=== PATIENT | female | born 1950 | race African-American/Black ===

== ENCOUNTER → 2019-10-14 | Emergency (ER) | payer MEDICARE, MEDICAID ==
[~2019-10-14] VITALS: Ht 170.2 cm; Wt 99.3 kg
[~2019-10-14] MED LIST: ANAS1TAB52; DIVA125T12; DOCUSATE SOD 100 MG CAP PO ONE; GEMF600T7; HYDROcodone-ACET 10/325MG TAB PO ONE; HYDRX10T; INDO25CA17; LORAPOW30; QUET200T30; SIMVISTATIN; SMZ/TMP; SYNTHROID; ZOLP10TA; [UNRECOGNIZED DRUG - OTHER]
[2019-10-14 10:34] LABS: Basophils # (auto) 0.1 10 ^3/uL (0-0.2); Basophils % (auto) 0.6 % (0.0-2.0); Eosinophils # (auto) 0.1 10 ^3/uL (0-0.8); Eosinophils % (auto) 0.8 % (0.0-7.0); Hematocrit 36.2 % (36.0-46.0); Hemoglobin 11.8 g/dL (12.2-16.2); Lymphocytes # (auto) 1.2 10 ^3/uL (0.4-5.4); Mean Corpuscular Hemoglobin 29.3 pg (28.0-32.0); Mean Corpuscular Hgb Conc. 32.7 g/dL (32.0-36.0); Mean Corpuscular Volume 89.7 fL (80.0-100.0); Monocytes # (auto) 0.5 10 ^3/uL (0-1.3); Monocytes % (auto) 6.2 % (0.0-12.0); Neutrophils # (auto) 6.2 10 ^3/uL (1.6-8.6); Neutrophils % (auto) 77.4 % (37.0-80.0); Nucleated Red Blood Cells % 0.1 %; Platelet Count (auto) 174 10^3/uL (140-450); Red Blood Cells 4.04 10^6/uL (4.0-5.20); Red Cell Distribution Width 16.2 % (11.8-14.3); White Blood Cell 8.1 10^3/uL (4.4-10.8)
[2019-10-14 10:49] LABS: INR 1.04 (0.9-1.15); Partial Thromboplastin Time 22.1 sec (23.64-32.05)
[2019-10-14 10:53] LABS: Albumin 3.7 g/dL (3.4-5.0); Anion Gap 5 (5-15); Blood Urea Nitrogen 44 mg/dL (7-18); Calcium 8.3 mg/dL (8.5-10.1); Carbon Dioxide 25 mmol/L (21-32); Chloride 107 mmol/L (98-107); Glucose 99 mg/dL (74-106); Lipase 250 U/L (73-393); Potassium 4.9 mmol/L (3.5-5.1); Sodium 137 mmol/L (136-145)
[2019-10-14 10:59] LABS: Alanine Aminotransferase 24 U/L (13-56); Alkaline Phosphatase 91 U/L (45-117); Aspartate Aminotransferase 40 U/L (15-37); BUN/Creatinine Ratio 21.9; Bilirubin, Total 0.2 mg/dL (0.2-1.0); GFR African American 31 mL/min; GFR Non-African American 26 mL/min; Total Protein 8.7 g/dL (6.4-8.2)
[2019-10-14 12:37] VITALS: BP 112/68
[2019-10-14 13:53] LABS: Urine Bacteria NONE SEEN /hpf (None Seen); Urine Blood Negative /uL (Negative); Urine Specific Gravity 1.018 (1.001-1.035); Urine WBC 12 /hpf (0 - 5)
== END | disposition home or self-care (01) ==
LOC: ER 09:44
DX: K59.00 Constipation, unspecified (principal); N39.0 Urinary tract infection, site not specified; N28.9 Disorder of kidney and ureter, unspecified
CPT/HCPCS: 36415; 71045; 74018; 80053; 81001; 83690; 84484; 85025; 85610; 85730

== ENCOUNTER 2019-11-13 12:58 | Inpatient (IN) | payer MEDICARE, MEDICAID ==
[~2019-11-13] VITALS: Ht 170.2 cm; Wt 106.5 kg
[~2019-11-13 12:58] MED LIST changes: -DOCUSATE SOD 100 MG CAP PO ONE; -HYDROcodone-ACET 10/325MG TAB PO ONE
[2019-11-13 13:28] LABS: Basophils # (auto) 0 10 ^3/uL (0-0.2); Basophils % (auto) 0.9 % (0.0-2.0); Eosinophils # (auto) 0.1 10 ^3/uL (0-0.8); Eosinophils % (auto) 2.5 % (0.0-7.0); Hematocrit 31.5 % (36.0-46.0); Hemoglobin 10.3 g/dL (12.2-16.2); Lymphocytes # (auto) 1.4 10 ^3/uL (0.4-5.4); Mean Corpuscular Hemoglobin 29.8 pg (28.0-32.0); Mean Corpuscular Hgb Conc. 32.7 g/dL (32.0-36.0); Mean Corpuscular Volume 91.3 fL (80.0-100.0); Monocytes # (auto) 0.3 10 ^3/uL (0-1.3); Monocytes % (auto) 7.2 % (0.0-12.0); Neutrophils # (auto) 2.5 10 ^3/uL (1.6-8.6); Neutrophils % (auto) 57.4 % (37.0-80.0); Nucleated Red Blood Cells % 0.2 %; Platelet Count (auto) 218 10^3/uL (140-450); Red Blood Cells 3.46 10^6/uL (4.0-5.20); Red Cell Distribution Width 15.4 % (11.8-14.3); White Blood Cell 4.4 10^3/uL (4.4-10.8)
[2019-11-13 13:50] LABS: Albumin 3.7 g/dL (3.4-5.0); Calcium 8.9 mg/dL (8.5-10.1)
[2019-11-13 13:54] LABS: Bilirubin, Total 0.3 mg/dL (0.2-1.0); Total Protein 8.9 g/dL (6.4-8.2); Uric Acid 10.1 mg/dL (2.6-6.0)
[2019-11-13 14:00] LABS: Potassium 5.7 mmol/L (3.5-5.1)
[2019-11-13] MEDS ORDERED: CALCIUM GLUC 4.65meq/50ml D5AE 50 ML IV ONE (16:00)
[2019-11-13] MEDS ORDERED: SODIUM BICARBONATE 8.4 % INJ 50ML VIAL IV ONE (16:00)
[2019-11-13] MEDS ORDERED: NITROGLYCERIN 0.4 MG SL TAB SL PRN (16:15)
[2019-11-13] MEDS ORDERED: LORazepam 0.5 MG TAB PO PRN (16:15)
[2019-11-13] MEDS ORDERED: ONDANSETRON HCL 4 MG/2 ML VIAL IV PRN (16:15)
[2019-11-13] MEDS ORDERED: ALBUTEROL SULF 2.5 MG/0.5ML(0.5%) NEB SOLN NEB ONE (16:15)
[2019-11-13] MEDS ORDERED: FUROSEMIDE 20 MG/2 ML VIAL IV ONE (16:15)
[2019-11-13] MEDS ORDERED: SODIUM ZIRCONIUM CYCL 10 GM PAK PO ONE (16:15)
[2019-11-13] MEDS ORDERED: ALUM & MAG HYDROX-SIMETH LIQ(MAALOX) 30 ML PO PRN (16:15)
[2019-11-13] MEDS ORDERED: MORPHINE SULF INJ 2 MG/ML SYRINGE 1ML IV PRN (16:15)
[2019-11-13] MEDS ORDERED: DOCUSATE SOD 100 MG CAP PO PRN (16:15)
[2019-11-13] MEDS ORDERED: HYDROmorphone HCL 2 MG/ML VL IV PRN (16:15)
[2019-11-13] MEDS ORDERED: hydrOXYzine HCL 10 MG TAB PO PRN (16:30)
[2019-11-13] MEDS ORDERED: predniSONE 20 MG TAB PO ONE (16:30)
[2019-11-13] MEDS ORDERED: PANTOPRAZOLE 40 MG/10 ML VIAL INJ IV ONE (16:30)
[2019-11-13] MEDS: HYDROcodone-ACET 10/325MG TAB PO PRN (16:35)
[2019-11-13] MEDS: LACTATED RINGER'S 1,000 ML IV SCH (16:51)
[2019-11-13 17:55] LABS: Urine Bacteria FEW /hpf (None Seen); Urine Blood Negative /uL (Negative); Urine Hyaline Cast FEW /lpf (0 - 2); Urine WBC 16 /hpf (0 - 5)
[2019-11-13] MEDS: FUROSEMIDE 20 MG/2 ML VIAL IV SCH (18:00)
[2019-11-13 19:40] VITALS: BP 123/69
[2019-11-13] MEDS ORDERED: CITA10TA59 PO (21:39)
[2019-11-13] MEDS ORDERED: LEVO125T66 PO (21:39)
[2019-11-13] MEDS: ATORVASTATIN 20 MG TAB PO SCH (22:00)
[2019-11-13 22:07] VITALS: BP 132/82
[2019-11-13] MEDS: QUEtiapine FUMARATE 100 MG TAB PO SCH (22:20)
[2019-11-14] MEDS: LACTATED RINGER'S 1,000 ML IV SCH ×2 (00:36→05:20)
[2019-11-14 04:54] VITALS: BP 127/67
[2019-11-14] MEDS: FUROSEMIDE 20 MG/2 ML VIAL IV SCH (06:27)
[2019-11-14] MEDS: LEVOTHYROXINE SODIUM 100 MCG TAB PO SCH (06:29)
[2019-11-14 06:42] LABS: Basophils # (auto) 0 10 ^3/uL (0-0.2); Basophils % (auto) 0.3 % (0.0-2.0); Eosinophils # (auto) 0 10 ^3/uL (0-0.8); Hematocrit 29.4 % (36.0-46.0); Hemoglobin 9.9 g/dL (12.2-16.2); Lymphocytes # (auto) 0.6 10 ^3/uL (0.4-5.4); Lymphocytes % (auto) 15.1 % (10.0-50.0); Mean Corpuscular Hemoglobin 30.5 pg (28.0-32.0); Mean Corpuscular Hgb Conc. 33.6 g/dL (32.0-36.0); Mean Corpuscular Volume 90.9 fL (80.0-100.0); Monocytes # (auto) 0.4 10 ^3/uL (0-1.3); Neutrophils % (auto) 73.6 % (37.0-80.0); Nucleated Red Blood Cells % 0.3 %; Platelet Count (auto) 209 10^3/uL (140-450); Red Blood Cells 3.23 10^6/uL (4.0-5.20); Red Cell Distribution Width 15.2 % (11.8-14.3)
[2019-11-14] MEDS: HYDROcodone-ACET 10/325MG TAB PO PRN ×2 (06:54→16:49)
[2019-11-14 07:02] LABS: Albumin 3.2 g/dL (3.4-5.0); Calcium 8.9 mg/dL (8.5-10.1); Magnesium 2.3 mg/dL (1.6-2.6); Potassium 5.5 mmol/L (3.5-5.1)
[2019-11-14 07:08] LABS: BUN/Creatinine Ratio 32.7; Bilirubin, Total 0.3 mg/dL (0.2-1.0); Phosphorus 4.3 mg/dL (2.5-4.90)
[2019-11-14 08:51] VITALS: BP 133/95
[2019-11-14] MEDS: predniSONE 20 MG TAB PO SCH (10:07)
[2019-11-14] MEDS: CITALOPRAM HYDROBR 20 MG TAB PO SCH (10:08)
[2019-11-14] MEDS: PANTOPRAZOLE 40 MG/10 ML VIAL INJ IV SCH (10:08)
[2019-11-14] MEDS ORDERED: ALBUTEROL SULF 2.5 MG/0.5ML(0.5%) NEB SOLN NEB ONE ×2 (10:30→20:30)
[2019-11-14] MEDS ORDERED: InsuLIN REG 1unit/0.01ml Soln (100units/ml) IV ONE ×2 (10:30→20:00)
[2019-11-14] MEDS ORDERED: SODIUM BICARBONATE 8.4% INJ 50ML SYRINGE IV ONE ×2 (10:30→20:30)
[2019-11-14] MEDS ORDERED: DEXTROSE (50%) 50ML SYRG IV ONE ×2 (10:30→20:00)
[2019-11-14] MEDS ORDERED: FUROSEMIDE 100 MG/10ML VIAL IV ONE (10:30)
[2019-11-14] MEDS ORDERED: cefTRIAXone 1GM/50ML D5W 50 ML IV ONE (11:00)
[2019-11-14] MEDS ORDERED: SODIUM CHLORIDE 0.9% 1,000 ML IV SCH (11:00)
[2019-11-14 12:47] VITALS: BP 128/55
[2019-11-14] MEDS ORDERED: SODIUM ZIRCONIUM CYCL 10 GM PAK PO SCH (14:00)
[2019-11-14 16:58] VITALS: BP 127/68
[2019-11-14 19:18] LABS: BUN/Creatinine Ratio 33.1; Calcium 9.4 mg/dL (8.5-10.1)
[2019-11-14 19:27] LABS: Potassium 5.6 mmol/L (3.5-5.1)
[2019-11-14] MEDS ORDERED: LACTULOSE 20Gm/30ML SOLN PO ONE (20:15)
[2019-11-14] MEDS ORDERED: FUROSEMIDE 20 MG/2 ML VIAL IV ONE (20:15)
[2019-11-14] MEDS ORDERED: SODIUM ZIRCONIUM CYCL 10 GM PAK PO ONE (20:15)
[2019-11-14] MEDS ORDERED: CALCIUM GLUC 4.65meq/50ml D5AE 50 ML IV ONE (20:30)
[2019-11-14] MEDS: ATORVASTATIN 20 MG TAB PO SCH (20:57)
[2019-11-14] MEDS: QUEtiapine FUMARATE 100 MG TAB PO SCH (20:57)
[2019-11-14] MEDS: SODIUM ZIRCONIUM CYCL 10 GM PAK PO SCH (20:58)
[2019-11-14 21:53] VITALS: BP 124/63
[2019-11-15] MEDS: SODIUM ZIRCONIUM CYCL 10 GM PAK PO SCH ×3 (04:39→20:28)
[2019-11-15] MEDS: LEVOTHYROXINE SODIUM 100 MCG TAB PO SCH (04:39)
[2019-11-15 05:00] VITALS: BP 110/64
[2019-11-15 06:04] LABS: Basophils # (auto) 0 10 ^3/uL (0-0.2); Basophils % (auto) 0.2 % (0.0-2.0); Eosinophils # (auto) 0 10 ^3/uL (0-0.8); Eosinophils % (auto) 0.2 % (0.0-7.0); Hematocrit 29.4 % (36.0-46.0); Hemoglobin 9.7 g/dL (12.2-16.2); Lymphocytes # (auto) 1.5 10 ^3/uL (0.4-5.4); Lymphocytes % (auto) 25.2 % (10.0-50.0); Mean Corpuscular Hemoglobin 30.3 pg (28.0-32.0); Mean Corpuscular Hgb Conc. 33.1 g/dL (32.0-36.0); Mean Corpuscular Volume 91.3 fL (80.0-100.0); Monocytes # (auto) 0.8 10 ^3/uL (0-1.3); Monocytes % (auto) 13.8 % (0.0-12.0); Neutrophils # (auto) 3.5 10 ^3/uL (1.6-8.6); Neutrophils % (auto) 60.6 % (37.0-80.0); Nucleated Red Blood Cells % 0.3 %; Platelet Count (auto) 216 10^3/uL (140-450); Red Blood Cells 3.22 10^6/uL (4.0-5.20); White Blood Cell 5.8 10^3/uL (4.4-10.8)
[2019-11-15 06:23] LABS: Albumin 3.4 g/dL (3.4-5.0); Calcium 8.7 mg/dL (8.5-10.1); Magnesium 2.1 mg/dL (1.6-2.6); Potassium 4.2 mmol/L (3.5-5.1)
[2019-11-15 06:26] LABS: BUN/Creatinine Ratio 35.6; Bilirubin, Total 0.2 mg/dL (0.2-1.0); Phosphorus 5.5 mg/dL (2.5-4.90); Total Protein 8.4 g/dL (6.4-8.2)
[2019-11-15] MEDS: PANTOPRAZOLE 40 MG/10 ML VIAL INJ IV SCH (08:53)
[2019-11-15] MEDS: cefTRIAXone 1GM/50ML D5W 50 ML IV SCH (08:53)
[2019-11-15] MEDS: CITALOPRAM HYDROBR 20 MG TAB PO SCH (08:54)
[2019-11-15] MEDS: predniSONE 20 MG TAB PO SCH (08:54)
[2019-11-15 08:55] LABS: Protein, Urine 9.2 mg/dL (0.0-11.9)
[2019-11-15 09:00] VITALS: BP 128/86
[2019-11-15] MEDS: HYDROcodone-ACET 10/325MG TAB PO PRN (09:01)
[2019-11-15 13:00] VITALS: BP 126/74
[2019-11-15 16:56] VITALS: BP 138/104
[2019-11-15] MEDS: ATORVASTATIN 20 MG TAB PO SCH (20:28)
[2019-11-15] MEDS: QUEtiapine FUMARATE 100 MG TAB PO SCH (20:28)
[2019-11-15 22:00] VITALS: BP 114/79
[2019-11-16] MEDS: SODIUM ZIRCONIUM CYCL 10 GM PAK PO SCH ×2 (04:57→14:00)
[2019-11-16] MEDS: LEVOTHYROXINE SODIUM 100 MCG TAB PO SCH (04:57)
[2019-11-16 05:00] VITALS: BP 104/60
[2019-11-16 06:55] LABS: Potassium 3.8 mmol/L (3.5-5.1)
[2019-11-16 07:02] LABS: Albumin 3.3 g/dL (3.4-5.0); BUN/Creatinine Ratio 37.1; Bilirubin, Total 0.3 mg/dL (0.2-1.0); Calcium 8.6 mg/dL (8.5-10.1); Total Protein 8.1 g/dL (6.4-8.2)
[2019-11-16 09:00] VITALS: BP 123/66
[2019-11-16] MEDS: CITALOPRAM HYDROBR 20 MG TAB PO SCH (10:02)
[2019-11-16] MEDS: cefTRIAXone 1GM/50ML D5W 50 ML IV SCH (10:02)
[2019-11-16] MEDS: predniSONE 20 MG TAB PO SCH (10:02)
[2019-11-16] MEDS: PANTOPRAZOLE 40 MG/10 ML VIAL INJ IV SCH (10:02)
[2019-11-16 13:00] VITALS: BP 125/76
== END 2019-11-16 14:30 | disposition home or self-care (01) | DRG 553 ==
LOC: ER 12:58 → TELE 12:59 → TELE-WESTW 19:32
PROVIDERS: ADMIT Hospitalist; ATTEND Internal Medicine
DX: M10.9 Gout, unspecified (principal); N17.0 Acute kidney failure with tubular necrosis; E44.0 Moderate protein-calorie malnutrition; N39.0 Urinary tract infection, site not specified; E86.0 Dehydration; E87.5 Hyperkalemia; E03.9 Hypothyroidism, unspecified; E66.01 Morbid (severe) obesity due to excess calories; E78.5 Hyperlipidemia, unspecified; F32.9 Major depressive disorder, single episode, unspecified; I12.9 Hypertensive chronic kidney disease with stage 1 through stage 4 chronic kidney disease, or unspecified chronic kidney disease; F41.9 Anxiety disorder, unspecified; N18.3 Chronic kidney disease, stage 3 (moderate); Z79.1 Long term (current) use of non-steroidal anti-inflammatories (NSAID); Z80.9 Family history of malignant neoplasm, unspecified; Z83.3 Family history of diabetes mellitus; Z85.3 Personal history of malignant neoplasm of breast; Z91.11 Patient's noncompliance with dietary regimen; Z98.51 Tubal ligation status; Z88.5 Allergy status to narcotic agent; M17.12 Unilateral primary osteoarthritis, left knee; Z68.34 Body mass index [BMI] 34.0-34.9, adult; D63.1 Anemia in chronic kidney disease; D50.9 Iron deficiency anemia, unspecified
CPT/HCPCS: 36415; 71045; 73630; 76775; 80048; 80053; 80061; 81001; 82306; 82570; 82962; 83036; 83735; 83880; 84100; 84156; 84300; 84439; 84443; 84550; 85025; 87081; 87086; 93005; 93306; 94640; 94644; 96365; 96375; C9113; G0378; J0610; J0696; J1815

== ENCOUNTER 2019-11-17 12:09 | Emergency (ER) | payer MEDICARE, MEDICAID ==
[~2019-11-17] VITALS: Ht 170.2 cm; Wt 102.1 kg
[~2019-11-17 12:09] MED LIST changes: -ANAS1TAB52; +CITA10TA59 PO; -GEMF600T7; -HYDRX10T; -INDO25CA17; +LEVO125T66 PO; -LORAPOW30; -SMZ/TMP; -SYNTHROID; -ZOLP10TA; -[UNRECOGNIZED DRUG - OTHER]
[2019-11-17] MEDS: LORazepam 0.5 MG TAB PO ONE ×2 (12:43→12:59)
[2019-11-17 12:49] VITALS: BP 125/92
[2019-11-17] MEDS ORDERED: LORazepam 2MG/ML-1ML VIAL IV ONE (13:00)
[2019-11-17 13:06] LABS: Basophils # (auto) 0 10 ^3/uL (0-0.2); Basophils % (auto) 0.4 % (0.0-2.0); Eosinophils # (auto) 0.1 10 ^3/uL (0-0.8); Eosinophils % (auto) 0.8 % (0.0-7.0); Hematocrit 33.5 % (36.0-46.0); Hemoglobin 10.7 g/dL (12.2-16.2); Lymphocytes # (auto) 2.1 10 ^3/uL (0.4-5.4); Lymphocytes % (auto) 30.2 % (10.0-50.0); Mean Corpuscular Hemoglobin 29.3 pg (28.0-32.0); Mean Corpuscular Hgb Conc. 31.8 g/dL (32.0-36.0); Monocytes # (auto) 0.9 10 ^3/uL (0-1.3); Monocytes % (auto) 12.9 % (0.0-12.0); Neutrophils # (auto) 3.8 10 ^3/uL (1.6-8.6); Neutrophils % (auto) 55.7 % (37.0-80.0); Nucleated Red Blood Cells % 0.5 %; Platelet Count (auto) 229 10^3/uL (140-450); Red Blood Cells 3.64 10^6/uL (4.0-5.20); Red Cell Distribution Width 15.4 % (11.8-14.3); White Blood Cell 6.8 10^3/uL (4.4-10.8)
[2019-11-17 13:29] LABS: Albumin 3.4 g/dL (3.4-5.0); Anion Gap 7 (5-15); Aspartate Aminotransferase 13 U/L (15-37); BUN/Creatinine Ratio 33.1; Blood Urea Nitrogen 48 mg/dL (7-18); Calcium 8.5 mg/dL (8.5-10.1); Carbon Dioxide 30 mmol/L (21-32); Chloride 106 mmol/L (98-107); GFR African American 46 mL/min; GFR Non-African American 38 mL/min; Glucose 78 mg/dL (74-106); Potassium 3.3 mmol/L (3.5-5.1); Sodium 143 mmol/L (136-145)
[2019-11-17 13:34] LABS: Alanine Aminotransferase 15 U/L (13-56); Alkaline Phosphatase 71 U/L (45-117); Bilirubin, Total 0.2 mg/dL (0.2-1.0); Total Protein 8.2 g/dL (6.4-8.2)
[2019-11-17] MEDS ORDERED: POTASSIUM EFFERVESENT TAB 25 MEQ PO ONE (13:45)
[2019-11-17 14:01] LABS: Urine Bacteria FEW /hpf (None Seen); Urine Blood Negative /uL (Negative); Urine WBC 16 /hpf (0 - 5)
== END 2019-11-17 14:38 | disposition home or self-care (01) ==
LOC: EDBD 12:09 → ER 12:09
DX: R42 Dizziness and giddiness (principal); E87.6 Hypokalemia; N39.0 Urinary tract infection, site not specified; I12.9 Hypertensive chronic kidney disease with stage 1 through stage 4 chronic kidney disease, or unspecified chronic kidney disease; N18.9 Chronic kidney disease, unspecified; E07.9 Disorder of thyroid, unspecified
CPT/HCPCS: 36415; 70450; 71045; 80053; 81001; 83880; 84484; 85025; 93005; 96374; 99285; J2060

== ENCOUNTER 2019-11-19 11:38 | Emergency (ER) | payer MEDICARE, MEDICAID ==
[~2019-11-19] VITALS: Ht 170.2 cm; Wt 102.1 kg
[2019-11-19] MEDS ORDERED: SODIUM CHLORIDE 0.9% 500 ML IVB ONE (12:01)
[2019-11-19] MEDS ORDERED: SODIUM CHLORIDE 0.9% 1,000 ML IV ONE (12:01)
[2019-11-19 12:15] LABS: Basophils # (auto) 0 10 ^3/uL (0-0.2); Basophils % (auto) 0.5 % (0.0-2.0); Eosinophils # (auto) 0 10 ^3/uL (0-0.8); Eosinophils % (auto) 0.6 % (0.0-7.0); Hemoglobin 9.7 g/dL (12.2-16.2); Lymphocytes # (auto) 1.6 10 ^3/uL (0.4-5.4); Lymphocytes % (auto) 21.1 % (10.0-50.0); Mean Corpuscular Hemoglobin 29.8 pg (28.0-32.0); Mean Corpuscular Hgb Conc. 32.2 g/dL (32.0-36.0); Mean Corpuscular Volume 92.7 fL (80.0-100.0); Neutrophils # (auto) 4.8 10 ^3/uL (1.6-8.6); Neutrophils % (auto) 64.8 % (37.0-80.0); Nucleated Red Blood Cells % 0.4 %; Platelet Count (auto) 252 10^3/uL (140-450); Red Blood Cells 3.24 10^6/uL (4.0-5.20); Red Cell Distribution Width 15.1 % (11.8-14.3); White Blood Cell 7.4 10^3/uL (4.4-10.8)
[2019-11-19 12:33] LABS: Alanine Aminotransferase 13 U/L (13-56); Albumin 3.1 g/dL (3.4-5.0); Anion Gap 6 (5-15); Aspartate Aminotransferase 6 U/L (15-37); BUN/Creatinine Ratio 20.9; Blood Urea Nitrogen 31 mg/dL (7-18); Calcium 8.7 mg/dL (8.5-10.1); Carbon Dioxide 27 mmol/L (21-32); Chloride 105 mmol/L (98-107); GFR African American 45 mL/min; GFR Non-African American 37 mL/min; Glucose 107 mg/dL (74-106); Potassium 4.2 mmol/L (3.5-5.1); Sodium 138 mmol/L (136-145)
[2019-11-19 12:35] LABS: Bilirubin, Total 0.4 mg/dL (0.2-1.0); Total Protein 8.1 g/dL (6.4-8.2)
[2019-11-19 12:41] LABS: Magnesium 2.2 mg/dL (1.6-2.6); Uric Acid 10.8 mg/dL (2.6-6.0)
[2019-11-19 12:45] LABS: Alkaline Phosphatase 70 U/L (45-117)
[2019-11-19] MEDS ORDERED: KETOROLAC TROMETH 30 MG/ML 1ML VIAL IV ONE (13:30)
[2019-11-19 13:46] LABS: Amphetamine Screen, Urine NEGATIVE (NEGATIVE); Barbiturate Scree,Urine NEGATIVE (NEGATIVE); Benzodiazephine Screen, Urine NEGATIVE (NEGATIVE); Cannabinoid Screen, Urine NEGATIVE (NEGATIVE); Cocaine Screen, Urine NEGATIVE (NEGATIVE); Opiate Scree,Urine NEGATIVE (NEGATIVE)
[2019-11-19 13:53] LABS: Phencyclidine Screen, Urine NEGATIVE (NEGATIVE)
[2019-11-19 13:54] LABS: Urine Bacteria NONE SEEN /hpf (None Seen); Urine Blood Negative /uL (Negative); Urine Specific Gravity 1.018 (1.001-1.035); Urine WBC <1 /hpf (0 - 5)
[2019-11-19 14:00] VITALS: BP 114/67
[2019-11-19] MEDS ORDERED: DexAMETHasone SOD PHOS 4 MG/1ML SDV INJ IV ONE (14:45)
== END 2019-11-19 15:10 | disposition home or self-care (01) ==
LOC: EDBD 11:38 → ER 11:38
DX: E79.0 Hyperuricemia without signs of inflammatory arthritis and tophaceous disease (principal); D64.9 Anemia, unspecified; F31.9 Bipolar disorder, unspecified; R53.1 Weakness; Z85.3 Personal history of malignant neoplasm of breast; E07.9 Disorder of thyroid, unspecified; I12.9 Hypertensive chronic kidney disease with stage 1 through stage 4 chronic kidney disease, or unspecified chronic kidney disease; N18.9 Chronic kidney disease, unspecified
CPT/HCPCS: 36415; 80053; 80307; 81001; 83735; 84443; 84484; 84550; 85025; 93005; 96374; 96375; 99284; J1100; J1885; J7030

== ENCOUNTER 2020-12-27 12:01 | Emergency (ER) | payer MEDICARE, MEDICAID ==
[~2020-12-27] VITALS: Ht 170.2 cm; Wt 114.3 kg
[~2020-12-27 12:01] MED LIST changes: -CITA10TA59 PO; +CITA10TA8 PO; +LEVO125T PO; -LEVO125T66 PO
[2020-12-27] MEDS ORDERED: ACETAMINOPHEN 325 MG TAB PO ONE (13:30)
[2020-12-27] MEDS ORDERED: METHOCARBAMOL 500 MG TAB PO ONE (13:30)
== END 2020-12-27 15:07 | disposition home or self-care (01) ==
LOC: ER 12:01
DX: M62.838 Other muscle spasm (principal); G44.309 Post-traumatic headache, unspecified, not intractable; F32.9 Major depressive disorder, single episode, unspecified; I10 Essential (primary) hypertension; Z98.51 Tubal ligation status; Z88.5 Allergy status to narcotic agent; Z79.899 Other long term (current) drug therapy; W01.0XXA Fall on same level from slipping, tripping and stumbling without subsequent striking against object, initial encounter; Y93.89 Activity, other specified; Y92.89 Other specified places as the place of occurrence of the external cause; Y99.8 Other external cause status
CPT/HCPCS: 70450; 72040

== ENCOUNTER 2021-05-19 15:22 | Emergency (ER) | payer MEDICARE, MEDICAID ==
[~2021-05-19] VITALS: Ht 170.2 cm; Wt 108.9 kg
[2021-05-19] MEDS ORDERED: SODIUM CHLORIDE 0.9% 500 ML IVB ONE (15:45)
[2021-05-19 16:00] VITALS: BP 145/89
[2021-05-19 17:15] LABS: Basophils # (auto) 0.1 10 ^3/uL (0-0.2); Basophils % (auto) 0.9 % (0.0-2.0); Eosinophils # (auto) 0 10 ^3/uL (0-0.8); Eosinophils % (auto) 0.6 % (0.0-7.0); Hematocrit 32.1 % (36.0-46.0); Hemoglobin 10.7 g/dL (12.2-16.2); Lymphocytes # (auto) 0.5 10 ^3/uL (0.4-5.4); Lymphocytes % (auto) 6.3 % (10.0-50.0); Mean Corpuscular Hemoglobin 31.5 pg (28.0-32.0); Mean Corpuscular Hgb Conc. 33.2 g/dL (32.0-36.0); Monocytes # (auto) 0.5 10 ^3/uL (0-1.3); Monocytes % (auto) 6.9 % (0.0-12.0); Neutrophils # (auto) 6.2 10 ^3/uL (1.6-8.6); Neutrophils % (auto) 85.3 % (37.0-80.0); Nucleated Red Blood Cells % 0.1 %; Red Blood Cells 3.38 10^6/uL (4.0-5.20); White Blood Cell 7.2 10^3/uL (4.4-10.8)
[2021-05-19] MEDS ORDERED: ACETAMINOPHEN 325 MG TAB PO ONE (17:15)
[2021-05-19 17:34] LABS: Albumin 3.1 g/dL (3.4-5.0); Calcium 8.6 mg/dL (8.5-10.1); Magnesium 2.3 mg/dL (1.6-2.6); Potassium 4.4 mmol/L (3.5-5.1)
[2021-05-19 17:42] LABS: Bilirubin, Total 1.4 mg/dL (0.2-1.0); CRP High Sensitivity 10.4 mg/dL (< 0.3); Total Protein 8.1 g/dL (6.4-8.2)
== END 2021-05-19 21:15 | disposition home or self-care (01) ==
LOC: ER 15:22 → EDBD 15:22 → ER 21:15
DX: R53.1 Weakness (principal); R79.82 Elevated C-reactive protein (CRP); R79.89 Other specified abnormal findings of blood chemistry; I12.9 Hypertensive chronic kidney disease with stage 1 through stage 4 chronic kidney disease, or unspecified chronic kidney disease; N18.2 Chronic kidney disease, stage 2 (mild); M10.9 Gout, unspecified; E03.9 Hypothyroidism, unspecified; E78.5 Hyperlipidemia, unspecified; Z79.899 Other long term (current) drug therapy; Z88.5 Allergy status to narcotic agent
CPT/HCPCS: 36415; 71045; 80053; 82728; 83605; 83735; 84484; 85025; 85379; 86141; 87040; 93005

== ENCOUNTER 2021-06-13 02:53 | Inpatient (IN) | payer MEDICARE, MEDICAID ==
[~2021-06-13] VITALS: Ht 170.2 cm; Wt 108.5 kg
[2021-06-13 03:58] LABS: Basophils # (auto) 0 10 ^3/uL (0-0.2); Basophils % (auto) 0.9 % (0.0-2.0); Eosinophils # (auto) 0.1 10 ^3/uL (0-0.8); Eosinophils % (auto) 2.8 % (0.0-7.0); Hematocrit 32.2 % (36.0-46.0); Hemoglobin 10.6 g/dL (12.2-16.2); Lymphocytes # (auto) 1.9 10 ^3/uL (0.4-5.4); Lymphocytes % (auto) 42.6 % (10.0-50.0); Mean Corpuscular Hemoglobin 31.2 pg (28.0-32.0); Mean Corpuscular Hgb Conc. 32.9 g/dL (32.0-36.0); Mean Corpuscular Volume 94.8 fL (80.0-100.0); Monocytes # (auto) 0.5 10 ^3/uL (0-1.3); Monocytes % (auto) 10.7 % (0.0-12.0); Neutrophils # (auto) 1.9 10 ^3/uL (1.6-8.6); Nucleated Red Blood Cells % 0.3 %; Red Blood Cells 3.39 10^6/uL (4.0-5.20); Red Cell Distribution Width 17.2 % (11.8-14.3); White Blood Cell 4.5 10^3/uL (4.4-10.8)
[2021-06-13 04:25] LABS: Calcium 8.3 mg/dL (8.5-10.1); Potassium 4.7 mmol/L (3.5-5.1)
[2021-06-13 04:31] LABS: BUN/Creatinine Ratio 17.3; Bilirubin, Total 0.3 mg/dL (0.2-1.0); Total Protein 7.6 g/dL (6.4-8.2)
[2021-06-13] MEDS ORDERED: TEMAZEPAM 15 MG CAP PO PRN (07:15)
[2021-06-13] MEDS ORDERED: ONDANSETRON HCL 4 MG/2 ML VIAL IV PRN (07:15)
[2021-06-13] MEDS ORDERED: NITROGLYCERIN 0.4 MG SL TAB SL PRN (07:15)
[2021-06-13] MEDS: ASPirin 81 mg TAB PO SCH (09:04)
[2021-06-13] MEDS: PANTOPRAZOLE 40 MG TAB PO SCH (09:05)
[2021-06-13] MEDS: FUROSEMIDE 20 MG TAB PO SCH (09:05)
[2021-06-13] MEDS: METOPROLOL TARTRATE 50 MG TAB PO SCH ×2 (09:05→21:43)
[2021-06-13] MEDS: LISINOPRIL 10 MG TAB PO SCH (09:06)
[2021-06-13] MEDS ORDERED: SENNA 8.6 MG TAB PO ONE (16:00)
[2021-06-13] MEDS ORDERED: DOCUSATE SOD 100 MG CAP PO PRN (16:00)
[2021-06-13] MEDS ORDERED: DOCUSATE SOD 100 MG CAP PO ONE (16:00)
[2021-06-13 16:37] VITALS: BP 120/78
[2021-06-13] MEDS ORDERED: LORA0.5T20 PO (18:30)
[2021-06-13] MEDS ORDERED: QUET50TA PO ×2 (18:32→18:38)
[2021-06-13] MEDS ORDERED: OMEG100078 PO (18:38)
[2021-06-13] MEDS ORDERED: ALLO100T PO (18:38)
[2021-06-13] MEDS ORDERED: METO-289 PO (18:38)
[2021-06-13] MEDS ORDERED: ATOR40TA52 PO (18:38)
[2021-06-13] MEDS ORDERED: CITA-77 PO (18:38)
[2021-06-13] MEDS ORDERED: METH2.5T PO (18:38)
[2021-06-13] MEDS ORDERED: LEVO175T66 PO (18:38)
[2021-06-13] MEDS ORDERED: VALP250S19 PO ×2 (18:38)
[2021-06-13] MEDS: ATORVASTATIN 20 MG TAB PO SCH (21:43)
[2021-06-13] MEDS: SENNA 8.6 MG TAB PO SCH (21:43)
[2021-06-13 22:00] VITALS: BP_SYST 110; BP_SYST 111; BP_DIAS 57; BP_DIAS 60
[2021-06-13] MEDS ORDERED: VALPROIC ACID 250 MG/5 ML ORAL SOLN PO ONE (22:00)
[2021-06-13] MEDS ORDERED: QUEtiapine FUMARATE 100 MG TAB PO ONE (22:00)
[2021-06-14] MEDS: ACETAMINOPHEN 325 MG TAB PO PRN ×2 (01:25→09:02)
[2021-06-14 05:00] VITALS: BP 111/60
[2021-06-14 06:00] LABS: Basophils # (auto) 0 10 ^3/uL (0-0.2); Basophils % (auto) 0.5 % (0.0-2.0); Eosinophils # (auto) 0.1 10 ^3/uL (0-0.8); Eosinophils % (auto) 3.2 % (0.0-7.0); Hematocrit 31.4 % (36.0-46.0); Hemoglobin 10.3 g/dL (12.2-16.2); Lymphocytes # (auto) 1.5 10 ^3/uL (0.4-5.4); Lymphocytes % (auto) 41.2 % (10.0-50.0); Mean Corpuscular Hemoglobin 31.1 pg (28.0-32.0); Mean Corpuscular Hgb Conc. 32.9 g/dL (32.0-36.0); Mean Corpuscular Volume 94.6 fL (80.0-100.0); Monocytes # (auto) 0.5 10 ^3/uL (0-1.3); Monocytes % (auto) 14.2 % (0.0-12.0); Neutrophils # (auto) 1.5 10 ^3/uL (1.6-8.6); Neutrophils % (auto) 40.9 % (37.0-80.0); Nucleated Red Blood Cells % 0.2 %; Red Blood Cells 3.32 10^6/uL (4.0-5.20); White Blood Cell 3.6 10^3/uL (4.4-10.8)
[2021-06-14] MEDS: LEVOTHYROXINE SODIUM 50 MCG TAB PO SCH (06:00)
[2021-06-14 06:12] LABS: Albumin 2.9 g/dL (3.4-5.0); Calcium 8.7 mg/dL (8.5-10.1); Potassium 4.7 mmol/L (3.5-5.1)
[2021-06-14 06:16] LABS: BUN/Creatinine Ratio 23.5; Bilirubin, Total 0.3 mg/dL (0.2-1.0); Total Protein 7.1 g/dL (6.4-8.2)
[2021-06-14 08:00] VITALS: BP 100/61
[2021-06-14 09:00] VITALS: BP 100/61
[2021-06-14] MEDS: ASPirin 81 mg TAB PO SCH (09:14)
[2021-06-14] MEDS: LISINOPRIL 10 MG TAB PO SCH (09:16)
[2021-06-14] MEDS: PANTOPRAZOLE 40 MG TAB PO SCH (09:17)
[2021-06-14] MEDS: METOPROLOL TARTRATE 50 MG TAB PO SCH ×2 (09:17→21:47)
[2021-06-14] MEDS: FUROSEMIDE 20 MG TAB PO SCH (09:18)
[2021-06-14 13:00] VITALS: BP 113/72
[2021-06-14] MEDS: IBUPROFEN 400 MG TAB PO PRN ×2 (13:16→21:45)
[2021-06-14 17:00] VITALS: BP 128/63
[2021-06-14] MEDS: SENNA 8.6 MG TAB PO SCH (21:43)
[2021-06-14] MEDS: ATORVASTATIN 20 MG TAB PO SCH (21:43)
[2021-06-14 22:00] VITALS: BP 109/79
[2021-06-14] MEDS ORDERED: QUEtiapine FUMARATE 100 MG TAB PO SCH (22:00)
[2021-06-14] MEDS ORDERED: VALPROIC ACID 250 MG/5 ML ORAL SOLN PO SCH (22:00)
[2021-06-15 05:00] VITALS: BP 111/53
[2021-06-15 06:14] LABS: Basophils # (auto) 0 10 ^3/uL (0-0.2); Basophils % (auto) 0.5 % (0.0-2.0); Eosinophils # (auto) 0.1 10 ^3/uL (0-0.8); Eosinophils % (auto) 3.4 % (0.0-7.0); Hematocrit 32.7 % (36.0-46.0); Hemoglobin 10.8 g/dL (12.2-16.2); Lymphocytes # (auto) 1.6 10 ^3/uL (0.4-5.4); Lymphocytes % (auto) 38.6 % (10.0-50.0); Mean Corpuscular Hemoglobin 31.2 pg (28.0-32.0); Mean Corpuscular Volume 94.7 fL (80.0-100.0); Monocytes # (auto) 0.7 10 ^3/uL (0-1.3); Monocytes % (auto) 17.1 % (0.0-12.0); Neutrophils # (auto) 1.6 10 ^3/uL (1.6-8.6); Neutrophils % (auto) 40.4 % (37.0-80.0); Nucleated Red Blood Cells % 0.1 %; Red Blood Cells 3.45 10^6/uL (4.0-5.20); Red Cell Distribution Width 16.5 % (11.8-14.3)
[2021-06-15 06:19] LABS: Calcium 8.6 mg/dL (8.5-10.1); Potassium 4.8 mmol/L (3.5-5.1)
[2021-06-15 06:20] LABS: BUN/Creatinine Ratio 24.2
[2021-06-15] MEDS: LEVOTHYROXINE SODIUM 50 MCG TAB PO SCH (06:36)
[2021-06-15] MEDS: METOPROLOL TARTRATE 50 MG TAB PO SCH (10:00)
[2021-06-15] MEDS: LISINOPRIL 10 MG TAB PO SCH (10:00)
[2021-06-15] MEDS: ASPirin 81 mg TAB PO SCH (10:09)
[2021-06-15] MEDS: FUROSEMIDE 20 MG TAB PO SCH (10:10)
[2021-06-15] MEDS: PANTOPRAZOLE 40 MG TAB PO SCH (10:11)
[2021-06-15 11:03] VITALS: BP 107/48
== END 2021-06-15 15:15 | disposition home or self-care (01) | DRG 189 ==
LOC: ER 02:53 → EDBD 02:53 → TELE 07:07 → TELE-WESTW 14:58
PROVIDERS: ADMIT Nurse Practitioner; ATTEND Internal Medicine Pulmonary Disease
DX: J96.01 Acute respiratory failure with hypoxia (principal); N18.30 Chronic kidney disease, stage 3 unspecified; E07.9 Disorder of thyroid, unspecified; E66.01 Morbid (severe) obesity due to excess calories; D64.9 Anemia, unspecified; I12.9 Hypertensive chronic kidney disease with stage 1 through stage 4 chronic kidney disease, or unspecified chronic kidney disease; E78.5 Hyperlipidemia, unspecified; F20.9 Schizophrenia, unspecified; F31.9 Bipolar disorder, unspecified; M10.9 Gout, unspecified; R07.89 Other chest pain; I07.1 Rheumatic tricuspid insufficiency; M81.0 Age-related osteoporosis without current pathological fracture; Z80.9 Family history of malignant neoplasm, unspecified; Z83.3 Family history of diabetes mellitus; Z68.38 Body mass index [BMI] 38.0-38.9, adult; Z88.5 Allergy status to narcotic agent; Z85.3 Personal history of malignant neoplasm of breast; Z87.01 Personal history of pneumonia (recurrent); Z20.822 Contact with and (suspected) exposure to COVID-19
CPT/HCPCS: 36415; 71045; 80048; 80053; 83880; 84484; 85025; 87081; 87426; 93005; 93306; G0378

== ENCOUNTER → 2022-04-28 | Outpatient (CLI) | payer MEDICARE, MEDICAID ==
[~2022-04-28] MED LIST changes: +ALLO100T PO; +ATOR40TA52 PO; +CITA-77 PO; -CITA10TA8 PO; -DIVA125T12; -LEVO125T PO; +LEVO175T66 PO; +LORA0.5T20 PO; +METH2.5T PO; +METO-289 PO; +OMEG100078 PO; -QUET200T30; +QUET50TA PO; -SIMVISTATIN; +VALP250S19 PO
== END | disposition home or self-care (01) ==
LOC: Rad HDHVI 13:00
PROVIDERS: ATTEND Internal Medicine Cardiovascular Disease
DX: I10 Essential (primary) hypertension (principal); E78.5 Hyperlipidemia, unspecified
CPT/HCPCS: 93306

== ENCOUNTER 2022-06-12 16:41 | Inpatient (IN) | payer MEDICARE, MEDICAID ==
[~2022-06-12] VITALS: Ht 170.2 cm; Wt 118.0 kg
[2022-06-12 18:29] LABS: Albumin 3.4 g/dL (3.4-5.0); BUN/Creatinine Ratio 17.6; Calcium 9.4 mg/dL (8.5-10.1); Potassium 4.9 mmol/L (3.5-5.1)
[2022-06-12] MEDS ORDERED: KETOROLAC TROMETH 30 MG/ML 1ML VIAL IV ONE (18:30)
[2022-06-12] MEDS ORDERED: ONDANSETRON HCL 4 MG/2 ML VIAL IV ONE (18:30)
[2022-06-12 18:33] LABS: Bilirubin, Total 0.3 mg/dL (0.2-1.0); Total Protein 8.4 g/dL (6.4-8.2)
[2022-06-12 18:49] LABS: Hematocrit 37.7 % (36.0-46.0); Hemoglobin 12.3 g/dL (12.2-16.2); Mean Corpuscular Hgb Conc. 32.6 g/dL (32.0-36.0); Mean Corpuscular Volume 92.1 fL (80.0-100.0); Red Blood Cells 4.09 10^6/uL (4.0-5.20); Red Cell Distribution Width 16.4 % (11.8-14.3); White Blood Cell 9.4 10^3/uL (4.4-10.8)
[2022-06-12 18:52] LABS: Band Neutrophils % (manual) 0; Basophils % (manual) 0 (0.0-2.0); Blast Cells 0; Eosinophils % (manual) 0 (0-7); Metamyelocytes % 0; Myelocytes % 0; Promyelocytes % 0; Reactive Lymphocytes 0
[2022-06-12 19:22] LABS: Lymphocytes % (manual) 30 (10.0-50.0); Monocytes % (manual) 5 (0-12)
[2022-06-12] MEDS ORDERED: ACETAMINOPHEN 325 MG TAB PO PRN (23:00)
[2022-06-12] MEDS ORDERED: ONDANSETRON HCL 4 MG/2 ML VIAL IV PRN (23:00)
[2022-06-12] MEDS ORDERED: DOCUSATE SOD 100 MG CAP PO PRN (23:00)
[2022-06-12] MEDS ORDERED: MORPHINE SULFATE INJ 2 MG/ml SYRG IV PRN (23:00)
[2022-06-13 04:51] LABS: Basophils # (auto) 0 10 ^3/uL (0-0.2); Basophils % (auto) 0.6 % (0.0-2.0); Eosinophils # (auto) 0.1 10 ^3/uL (0-0.8); Eosinophils % (auto) 1.6 % (0.0-7.0); Hematocrit 36.4 % (36.0-46.0); Hemoglobin 11.8 g/dL (12.2-16.2); Lymphocytes # (auto) 1.7 10 ^3/uL (0.4-5.4); Lymphocytes % (auto) 34.3 % (10.0-50.0); Mean Corpuscular Hemoglobin 29.3 pg (28.0-32.0); Mean Corpuscular Hgb Conc. 32.5 g/dL (32.0-36.0); Monocytes # (auto) 0.6 10 ^3/uL (0-1.3); Monocytes % (auto) 11.6 % (0.0-12.0); Neutrophils # (auto) 2.6 10 ^3/uL (1.6-8.6); Neutrophils % (auto) 51.9 % (37.0-80.0); Nucleated Red Blood Cells % 0.1 %; Red Blood Cells 4.04 10^6/uL (4.0-5.20); Red Cell Distribution Width 16.1 % (11.8-14.3)
[2022-06-13 05:23] LABS: Albumin 3.4 g/dL (3.4-5.0); Calcium 9.6 mg/dL (8.5-10.1)
[2022-06-13] MEDS: SODIUM CHLORIDE 0.9% 1,000 ML IV SCH ×2 (05:23→16:00)
[2022-06-13 05:25] LABS: BUN/Creatinine Ratio 20.6
[2022-06-13 05:28] LABS: Bilirubin, Total 0.4 mg/dL (0.2-1.0); Total Protein 7.9 g/dL (6.4-8.2)
[2022-06-13] MEDS: PANTOPRAZOLE 40 MG/10 ML VIAL INJ IV SCH (11:36)
[2022-06-13 15:07] LABS: Urine Specific Gravity 1.022 (1.001-1.035)
[2022-06-13 15:09] LABS: Urine Blood Negative /uL (Negative)
[2022-06-13] MEDS ORDERED: MET50T PO (16:41)
[2022-06-13] MEDS: POLYETHYLENE GLYCOL 17 GM PWDR PO SCH (17:08)
[2022-06-13 17:58] LABS: Urine WBC 100-200 /hpf (0 - 5)
[2022-06-13 17:59] LABS: Urine Bacteria FEW /hpf (None Seen)
[2022-06-13] MEDS: CITALOPRAM HYDROBR 20 MG TAB PO SCH (20:27)
[2022-06-13] MEDS ORDERED: METOPROLOL SUCCINATE XL 50 MG TAB PO SCH (22:00)
[2022-06-13 22:47] VITALS: BP 186/95
[2022-06-13 22:48] VITALS: BP 150/84
[2022-06-13] MEDS: LACTULOSE 20Gm/30ML SOLN PO SCH (22:49)
[2022-06-13] MEDS: METOCLOPRAMIDE HCL 5MG/ml INJ 2ml VIAL IV SCH (22:49)
[2022-06-13] MEDS: METOPROLOL TARTRATE 25 MG TAB PO SCH (22:50)
[2022-06-14 00:32] VITALS: BP 186/95
[2022-06-14 04:40] VITALS: BP 123/76
[2022-06-14] MEDS: METOCLOPRAMIDE HCL 5MG/ml INJ 2ml VIAL IV SCH ×2 (05:15→14:00)
[2022-06-14] MEDS: LACTULOSE 20Gm/30ML SOLN PO SCH (10:00)
[2022-06-14] MEDS ORDERED: ALLOPURINOL 100 MG TAB PO SCH (10:00)
[2022-06-14] MEDS: PANTOPRAZOLE 40 MG/10 ML VIAL INJ IV SCH (11:07)
[2022-06-14] MEDS: METOPROLOL TARTRATE 25 MG TAB PO SCH (11:07)
[2022-06-14] MEDS: POLYETHYLENE GLYCOL 17 GM PWDR PO SCH (11:09)
[2022-06-14] MEDS: SODIUM CHLORIDE 0.9% 1,000 ML IV SCH (11:10)
[2022-06-14 13:00] VITALS: BP 145/84
[2022-06-14] MEDS ORDERED: NITR-87 PO (14:23)
[2022-06-14] MEDS ORDERED: DOCU-94 PO (14:23)
[2022-06-14 17:00] VITALS: BP 140/84
[2022-06-14 17:23] VITALS: BP 150/92
[2022-06-14] MEDS: CITALOPRAM HYDROBR 20 MG TAB PO SCH (18:00)
== END 2022-06-14 19:10 | disposition home or self-care (01) | DRG 392 ==
LOC: ER 16:41 → EDBD 16:41 → OVERFLOW 22:52 → WEST WING 06-13 21:50
PROVIDERS: ADMIT Nurse Practitioner Family; ATTEND Nurse Practitioner Acute Care
DX: K59.00 Constipation, unspecified (principal); N39.0 Urinary tract infection, site not specified; Z68.41 Body mass index [BMI] 40.0-44.9, adult; K57.30 Diverticulosis of large intestine without perforation or abscess without bleeding; E03.9 Hypothyroidism, unspecified; E66.9 Obesity, unspecified; E78.5 Hyperlipidemia, unspecified; M10.9 Gout, unspecified; N18.2 Chronic kidney disease, stage 2 (mild); F20.9 Schizophrenia, unspecified; F31.9 Bipolar disorder, unspecified; I12.9 Hypertensive chronic kidney disease with stage 1 through stage 4 chronic kidney disease, or unspecified chronic kidney disease; Z20.822 Contact with and (suspected) exposure to COVID-19; M06.9 Rheumatoid arthritis, unspecified; Z80.9 Family history of malignant neoplasm, unspecified; Z85.3 Personal history of malignant neoplasm of breast; Z83.3 Family history of diabetes mellitus; Z79.899 Other long term (current) drug therapy; Z88.5 Allergy status to narcotic agent; Z98.51 Tubal ligation status
CPT/HCPCS: 36415; 74176; 80053; 80164; 81001; 82150; 83690; 84443; 85007; 85025; 85027; 87426; C9113; G0378; J1885; J2405

== ENCOUNTER 2022-10-04 10:38 | Emergency (ER) | payer MEDICARE, MEDICAID ==
[~2022-10-04] VITALS: Ht 165.1 cm; Wt 100.0 kg
[~2022-10-04 10:38] MED LIST changes: +DOCU-94 PO; +MET50T PO; -METO-289 PO; +NITR-87 PO
[2022-10-04 11:18] VITALS: BP 131/66
[2022-10-04] MEDS ORDERED: cefTRIAXone SOD 1,000 MG VL IM ONE (11:45)
[2022-10-04] MEDS ORDERED: CEPH-510 PO (12:25)
[2022-10-04] MEDS ORDERED: BENZ100C19 PO (12:25)
== END 2022-10-04 12:49 | disposition home or self-care (01) ==
LOC: EDBD 10:38 → ER 10:38
DX: J20.9 Acute bronchitis, unspecified (principal); J03.90 Acute tonsillitis, unspecified; E78.5 Hyperlipidemia, unspecified; I10 Essential (primary) hypertension; Z98.51 Tubal ligation status
CPT/HCPCS: 71046; 96372; 99283; J0696

== ENCOUNTER 2022-11-05 00:04 | Inpatient (IN) | payer MEDICARE, MEDICAID ==
[~2022-11-05] VITALS: Ht 167.6 cm; Wt 119.2 kg
[~2022-11-05 00:04] MED LIST changes: +BENZ100C19 PO; +CEPH-510 PO
[2022-11-05 00:52] LABS: Basophils # (auto) 0.1 10 ^3/uL (0-0.2); Basophils % (auto) 1.1 % (0.0-2.0); Eosinophils # (auto) 0.1 10 ^3/uL (0-0.8); Hematocrit 35.1 % (36.0-46.0); Hemoglobin 11.4 g/dL (12.2-16.2); Lymphocytes # (auto) 1.4 10 ^3/uL (0.4-5.4); Mean Corpuscular Hemoglobin 30.3 pg (28.0-32.0); Mean Corpuscular Hgb Conc. 32.4 g/dL (32.0-36.0); Mean Corpuscular Volume 93.4 fL (80.0-100.0); Monocytes # (auto) 0.8 10 ^3/uL (0-1.3); Monocytes % (auto) 11.6 % (0.0-12.0); Neutrophils # (auto) 4.4 10 ^3/uL (1.6-8.6); Neutrophils % (auto) 65.3 % (37.0-80.0); Nucleated Red Blood Cells % 0.9 %; Red Blood Cells 3.76 10^6/uL (4.0-5.20); Red Cell Distribution Width 16.9 % (11.8-14.3); White Blood Cell 6.8 10^3/uL (4.4-10.8)
[2022-11-05 01:05] LABS: INR 1.02 (0.9-1.15); Partial Thromboplastin Time 24.8 sec (24.6-33.4)
[2022-11-05 01:17] LABS: Albumin 3.2 g/dL (3.4-5.0); BUN/Creatinine Ratio 27.4 (10.0-20.0); Calcium 9.1 mg/dL (8.5-10.1); Potassium 5.5 mmol/L (3.5-5.1)
[2022-11-05 01:20] LABS: Bilirubin, Total 0.2 mg/dL (0.2-1.0); Total Protein 8.4 g/dL (6.4-8.2)
[2022-11-05] MEDS ORDERED: CALCIUM GLUC 1,000mg/50ml-NS 50 ML IV ONE (03:45)
[2022-11-05] MEDS ORDERED: InsuLIN REG 1unit/0.01ml Soln (100units/ml) IV ONE ×2 (03:45→13:15)
[2022-11-05] MEDS: DEXTROSE (50%) 50ML SYRG IV ONE ×2 (03:45→04:36)
[2022-11-05] MEDS ORDERED: DEXTROSE 10% 250 ML IV SCH (04:00)
[2022-11-05] MEDS ORDERED: NITROGLYCERIN 0.4 MG SL TAB SL PRN (12:15)
[2022-11-05] MEDS ORDERED: IPRATROPIUM BROM 0.5 MG/2.5ML INH SOL NEB PRN (12:15)
[2022-11-05] MEDS ORDERED: ALBUTEROL SULF 2.5 MG/0.5ML(0.5%) NEB SOLN NEB PRN (12:15)
[2022-11-05] MEDS ORDERED: MORPHINE SULFATE INJ 2 MG/ml SYRG IV PRN (12:15)
[2022-11-05 12:35] LABS: Urine Bacteria NONE SEEN /hpf (None Seen); Urine Blood Negative /uL (Negative); Urine Specific Gravity 1.014 (1.001-1.035); Urine WBC <1 /hpf (0 - 5)
[2022-11-05] MEDS: SODIUM CHLORIDE 0.9% 1,000 ML IV SCH ×2 (12:38→22:15)
[2022-11-05 12:59] LABS: Alcohol, Urine < 3.0 mg/dL (0-10); Amphetamine Screen, Urine NEGATIVE (NEGATIVE); Barbiturate Scree,Urine NEGATIVE (NEGATIVE); Benzodiazephine Screen, Urine NEGATIVE (NEGATIVE); Cannabinoid Screen, Urine NEGATIVE (NEGATIVE); Cocaine Screen, Urine NEGATIVE (NEGATIVE); Opiate Scree,Urine NEGATIVE (NEGATIVE); Phencyclidine Screen, Urine NEGATIVE (NEGATIVE)
[2022-11-05 12:59] LABS: Cholesterol 190 mg/dL (< 200)
[2022-11-05 13:04] LABS: HDL Cholesterol 63 mg/dL (40-59); LDL Cholesterol 103 mg/dL (< 100); Triglycerides 92 mg/dL (< 150)
[2022-11-05] MEDS ORDERED: SODIUM BICARBONATE 8.4% INJ 50ML SYRINGE IV ONE (13:15)
[2022-11-05] MEDS ORDERED: ALBUTEROL SULF 2.5 MG/0.5ML(0.5%) NEB SOLN NEB ONE (13:15)
[2022-11-05] MEDS ORDERED: FUROSEMIDE 20 MG/2 ML VIAL IV ONE (13:15)
[2022-11-05] MEDS ORDERED: DEXTROSE (50%) 50ML SYRG IV ONE (13:15)
[2022-11-05] MEDS ORDERED: DEXTROSE 10% 250 ML IV ONE ×2 (13:20→13:23)
[2022-11-05] MEDS ORDERED: ASPirin 81 mg TAB PO ONE (13:30)
[2022-11-05] MEDS ORDERED: PANTOPRAZOLE 40 MG/10 ML VIAL INJ IV ONE (13:30)
[2022-11-05] MEDS ORDERED: SODIUM ZIRCONIUM CYCL 10 GM PAK PO ONE (13:30)
[2022-11-05 14:01] LABS: Protein, Urine 16.4 mg/dL (0.0-11.9)
[2022-11-05 14:34] VITALS: BP 133/50
[2022-11-05] MEDS: ALBUTEROL SULF 2.5 MG/0.5ML(0.5%) NEB SOLN NEB SCH ×2 (17:51→23:58)
[2022-11-05] MEDS: IPRATROPIUM BROM 0.5 MG/2.5ML INH SOL NEB SCH ×2 (17:51→23:58)
[2022-11-05 18:35] LABS: Calcium 9.1 mg/dL (8.5-10.1); Potassium 4.7 mmol/L (3.5-5.1)
[2022-11-05 18:37] LABS: BUN/Creatinine Ratio 22.5 (10.0-20.0)
[2022-11-05] MEDS: VALPROIC ACID 250 MG/5 ML ORAL SOLN PO SCH (18:42)
[2022-11-05] MEDS: CITALOPRAM HYDROBR 20 MG TAB PO SCH (18:42)
[2022-11-05] MEDS: DOCUSATE SOD 100 MG CAP PO SCH (22:12)
[2022-11-05] MEDS: ATORVASTATIN 20 MG TAB PO SCH (22:13)
[2022-11-05] MEDS: METOPROLOL TARTRATE 50 MG TAB PO SCH (22:15)
[2022-11-06 00:52] LABS: BUN/Creatinine Ratio 22.9 (10.0-20.0); Calcium 8.8 mg/dL (8.5-10.1); Potassium 5.5 mmol/L (3.5-5.1)
[2022-11-06] MEDS: ALBUTEROL SULF 2.5 MG/0.5ML(0.5%) NEB SOLN NEB SCH ×4 (06:24→23:21)
[2022-11-06] MEDS: IPRATROPIUM BROM 0.5 MG/2.5ML INH SOL NEB SCH ×4 (06:24→23:21)
[2022-11-06] MEDS: QUEtiapine FUMARATE 100 MG TAB PO SCH (06:25)
[2022-11-06 07:03] LABS: Albumin 3.1 g/dL (3.4-5.0); Calcium 9.1 mg/dL (8.5-10.1)
[2022-11-06 07:07] LABS: BUN/Creatinine Ratio 24.2 (10.0-20.0); Bilirubin, Total 0.3 mg/dL (0.2-1.0); Phosphorus 4.5 mg/dL (2.5-4.90); Total Protein 7.8 g/dL (6.4-8.2); Uric Acid 7.4 mg/dL (2.6-6.0)
[2022-11-06 07:32] LABS: Basophils # (auto) 0 10 ^3/uL (0-0.2); Basophils % (auto) 0.5 % (0.0-2.0); Eosinophils # (auto) 0.1 10 ^3/uL (0-0.8); Eosinophils % (auto) 0.8 % (0.0-7.0); Hematocrit 33.1 % (36.0-46.0); Hemoglobin 10.9 g/dL (12.2-16.2); Lymphocytes % (auto) 27.5 % (10.0-50.0); Mean Corpuscular Hemoglobin 30.6 pg (28.0-32.0); Monocytes # (auto) 0.9 10 ^3/uL (0-1.3); Monocytes % (auto) 12.8 % (0.0-12.0); Neutrophils # (auto) 4.2 10 ^3/uL (1.6-8.6); Neutrophils % (auto) 58.4 % (37.0-80.0); Nucleated Red Blood Cells % 0.4 %; Red Blood Cells 3.56 10^6/uL (4.0-5.20); Red Cell Distribution Width 16.8 % (11.8-14.3); White Blood Cell 7.2 10^3/uL (4.4-10.8)
[2022-11-06] MEDS: VALPROIC ACID 250 MG/5 ML ORAL SOLN PO SCH ×2 (07:45→17:56)
[2022-11-06 07:52] LABS: Potassium 5.7 mmol/L (3.5-5.1)
[2022-11-06] MEDS: SODIUM CHLORIDE 0.9% 1,000 ML IV SCH (08:15)
[2022-11-06] MEDS ORDERED: InsuLIN REG 1unit/0.01ml Soln (100units/ml) IV ONE (08:45)
[2022-11-06] MEDS ORDERED: SODIUM BICARBONATE 8.4% INJ 50ML SYRINGE IV ONE (08:45)
[2022-11-06] MEDS ORDERED: ALBUTEROL SULF 2.5 MG/0.5ML(0.5%) NEB SOLN NEB ONE (08:45)
[2022-11-06] MEDS ORDERED: DEXTROSE (50%) 50ML SYRG IV ONE (08:45)
[2022-11-06] MEDS ORDERED: DEXTROSE 10% 250 ML IV ONE (08:52)
[2022-11-06 10:00] VITALS: BP 106/64
[2022-11-06] MEDS: METOPROLOL TARTRATE 50 MG TAB PO SCH ×2 (10:00→21:33)
[2022-11-06] MEDS ORDERED: PANTOPRAZOLE 40 MG/10 ML VIAL INJ IV SCH (10:00)
[2022-11-06] MEDS: ENOXAPARIN SOD 40 MG/0.4 ML SYRINGE SC SCH (11:19)
[2022-11-06] MEDS: ASPirin 81 mg TAB PO SCH (11:20)
[2022-11-06] MEDS: DOCUSATE SOD 100 MG CAP PO SCH ×2 (11:20→21:32)
[2022-11-06 12:49] LABS: Potassium 4.3 mmol/L (3.5-5.1)
[2022-11-06] MEDS ORDERED: guaiFENesin-DM 100/10mg/5ml SYR PO PRN (13:00)
[2022-11-06 13:09] LABS: BUN/Creatinine Ratio 23.3 (10.0-20.0); Calcium 8.9 mg/dL (8.5-10.1)
[2022-11-06] MEDS: CITALOPRAM HYDROBR 20 MG TAB PO SCH (17:55)
[2022-11-06 19:49] LABS: BUN/Creatinine Ratio 23.8 (10.0-20.0); Calcium 9.2 mg/dL (8.5-10.1); Potassium 5.2 mmol/L (3.5-5.1)
[2022-11-06 20:00] VITALS: BP 106/64
[2022-11-06] MEDS: ATORVASTATIN 20 MG TAB PO SCH (21:33)
[2022-11-06 21:39] VITALS: BP 129/78
[2022-11-07 05:45] VITALS: BP 124/59
[2022-11-07 06:07] LABS: BUN/Creatinine Ratio 27.9 (10.0-20.0); Basophils # (auto) 0 10 ^3/uL (0-0.2); Basophils % (auto) 0.4 % (0.0-2.0); Calcium 8.8 mg/dL (8.5-10.1); Eosinophils # (auto) 0.1 10 ^3/uL (0-0.8); Eosinophils % (auto) 1.3 % (0.0-7.0); Hematocrit 33.7 % (36.0-46.0); Hemoglobin 11.1 g/dL (12.2-16.2); Lymphocytes # (auto) 1.9 10 ^3/uL (0.4-5.4); Lymphocytes % (auto) 26.5 % (10.0-50.0); Mean Corpuscular Hemoglobin 31.1 pg (28.0-32.0); Mean Corpuscular Volume 94.3 fL (80.0-100.0); Monocytes # (auto) 1.2 10 ^3/uL (0-1.3); Monocytes % (auto) 16.2 % (0.0-12.0); Neutrophils # (auto) 4.1 10 ^3/uL (1.6-8.6); Neutrophils % (auto) 55.6 % (37.0-80.0); Nucleated Red Blood Cells % 0.3 %; Red Blood Cells 3.58 10^6/uL (4.0-5.20); White Blood Cell 7.3 10^3/uL (4.4-10.8)
[2022-11-07] MEDS: QUEtiapine FUMARATE 100 MG TAB PO SCH (06:09)
[2022-11-07] MEDS: VALPROIC ACID 250 MG/5 ML ORAL SOLN PO SCH ×2 (06:09→18:28)
[2022-11-07] MEDS: IPRATROPIUM BROM 0.5 MG/2.5ML INH SOL NEB SCH ×4 (07:13→18:31)
[2022-11-07] MEDS: ALBUTEROL SULF 2.5 MG/0.5ML(0.5%) NEB SOLN NEB SCH ×4 (07:13→18:31)
[2022-11-07 08:28] LABS: Potassium 5.9 mmol/L (3.5-5.1)
[2022-11-07] MEDS: cefTRIAXone 1GM/50ML D5W 50 ML IV SCH (08:35)
[2022-11-07 09:00] VITALS: BP 130/61
[2022-11-07 09:43] LABS: BUN/Creatinine Ratio 22.7 (10.0-20.0); Calcium 8.8 mg/dL (8.5-10.1)
[2022-11-07 09:47] LABS: Potassium 5.8 mmol/L (3.5-5.1)
[2022-11-07] MEDS ORDERED: ALBUTEROL SULF 2.5 MG/0.5ML(0.5%) NEB SOLN NEB ONE (10:15)
[2022-11-07] MEDS ORDERED: InsuLIN REG 1unit/0.01ml Soln (100units/ml) IV ONE ×2 (10:15→14:00)
[2022-11-07] MEDS ORDERED: CALCIUM GLUC 1,000mg/50ml-NS 50 ML IV ONE (10:15)
[2022-11-07] MEDS ORDERED: DEXTROSE (50%) 50ML SYRG IV ONE (10:15)
[2022-11-07] MEDS: AZITHROMYCIN 500MG/ 250ML 250 ML IV SCH (10:26)
[2022-11-07] MEDS: ASPirin 81 mg TAB PO SCH (10:28)
[2022-11-07] MEDS: METOPROLOL TARTRATE 50 MG TAB PO SCH ×2 (10:28→22:41)
[2022-11-07] MEDS: ENOXAPARIN SOD 40 MG/0.4 ML SYRINGE SC SCH (10:28)
[2022-11-07] MEDS: DOCUSATE SOD 100 MG CAP PO SCH ×2 (10:28→22:00)
[2022-11-07 13:00] VITALS: BP 107/66
[2022-11-07] MEDS ORDERED: DEXTROSE 10% 250 ML Bag IV ONE (14:00)
[2022-11-07] MEDS: SODIUM ZIRCONIUM CYCL 10 GM PAK PO SCH ×2 (14:00→22:42)
[2022-11-07 16:33] VITALS: BP 117/58
[2022-11-07] MEDS: CITALOPRAM HYDROBR 20 MG TAB PO SCH (18:28)
[2022-11-07] MEDS: ATORVASTATIN 20 MG TAB PO SCH (22:40)
[2022-11-08] MEDS: IPRATROPIUM BROM 0.5 MG/2.5ML INH SOL NEB SCH ×4 (00:15→18:16)
[2022-11-08] MEDS: ALBUTEROL SULF 2.5 MG/0.5ML(0.5%) NEB SOLN NEB SCH ×4 (00:15→18:16)
[2022-11-08 00:56] VITALS: BP 120/43
[2022-11-08 05:24] VITALS: BP 136/76
[2022-11-08] MEDS: QUEtiapine FUMARATE 100 MG TAB PO SCH (06:00)
[2022-11-08] MEDS: VALPROIC ACID 250 MG/5 ML ORAL SOLN PO SCH ×2 (06:00→18:34)
[2022-11-08] MEDS: SODIUM ZIRCONIUM CYCL 10 GM PAK PO SCH ×3 (06:00→21:11)
[2022-11-08 06:13] LABS: Basophils # (auto) 0 10 ^3/uL (0-0.2); Basophils % (auto) 0.6 % (0.0-2.0); Eosinophils # (auto) 0.2 10 ^3/uL (0-0.8); Eosinophils % (auto) 2.5 % (0.0-7.0); Hematocrit 35.4 % (36.0-46.0); Hemoglobin 11.4 g/dL (12.2-16.2); Lymphocytes # (auto) 2.1 10 ^3/uL (0.4-5.4); Lymphocytes % (auto) 30.3 % (10.0-50.0); Mean Corpuscular Hemoglobin 29.8 pg (28.0-32.0); Mean Corpuscular Hgb Conc. 32.2 g/dL (32.0-36.0); Mean Corpuscular Volume 92.5 fL (80.0-100.0); Monocytes % (auto) 14.5 % (0.0-12.0); Neutrophils # (auto) 3.6 10 ^3/uL (1.6-8.6); Neutrophils % (auto) 52.1 % (37.0-80.0); Nucleated Red Blood Cells % 0.1 %; Red Blood Cells 3.83 10^6/uL (4.0-5.20); Red Cell Distribution Width 16.8 % (11.8-14.3); White Blood Cell 6.9 10^3/uL (4.4-10.8)
[2022-11-08 06:32] LABS: BUN/Creatinine Ratio 28.4 (10.0-20.0); Calcium 9.4 mg/dL (8.5-10.1)
[2022-11-08 07:24] LABS: Potassium 5.7 mmol/L (3.5-5.1)
[2022-11-08] MEDS: METOPROLOL TARTRATE 50 MG TAB PO SCH ×2 (07:51→09:19)
[2022-11-08 09:00] VITALS: BP_SYST 126; BP_SYST 136; BP_DIAS 45; BP_DIAS 76
[2022-11-08] MEDS: DOCUSATE SOD 100 MG CAP PO SCH ×2 (09:19→21:54)
[2022-11-08] MEDS: ENOXAPARIN SOD 40 MG/0.4 ML SYRINGE SC SCH (09:19)
[2022-11-08] MEDS: cefTRIAXone 1GM/50ML D5W 50 ML IV SCH (09:19)
[2022-11-08] MEDS: ASPirin 81 mg TAB PO SCH (09:20)
[2022-11-08] MEDS: AZITHROMYCIN 500MG/ 250ML 250 ML IV SCH (10:00)
[2022-11-08 13:00] VITALS: BP 124/70
[2022-11-08] MEDS ORDERED: DEXTROSE (50%) 50ML SYRG IV ONE (13:00)
[2022-11-08] MEDS ORDERED: InsuLIN REG 1unit/0.01ml Soln (100units/ml) IV ONE (13:00)
[2022-11-08] MEDS ORDERED: SODIUM BICARBONATE 8.4 % INJ 50ML VIAL IV ONE (13:00)
[2022-11-08] MEDS ORDERED: ACETAMINOPHEN 500 MG TAB PO PRN (14:45)
[2022-11-08] MEDS ORDERED: DEXTROSE 10% 250 ML Bag IV PRN (15:00)
[2022-11-08 17:00] VITALS: BP 137/72
[2022-11-08] MEDS: CITALOPRAM HYDROBR 20 MG TAB PO SCH (18:34)
[2022-11-08] MEDS: ATORVASTATIN 20 MG TAB PO SCH (21:11)
[2022-11-08] MEDS ORDERED: METOPROLOL TARTRATE 50 MG TAB PO ONE (21:30)
[2022-11-08 22:00] VITALS: BP 129/76
[2022-11-09] MEDS: ALBUTEROL SULF 2.5 MG/0.5ML(0.5%) NEB SOLN NEB SCH ×4 (00:07→18:48)
[2022-11-09] MEDS: IPRATROPIUM BROM 0.5 MG/2.5ML INH SOL NEB SCH ×4 (00:07→18:48)
[2022-11-09 05:00] VITALS: BP 153/64
[2022-11-09] MEDS: QUEtiapine FUMARATE 100 MG TAB PO SCH (06:25)
[2022-11-09] MEDS: VALPROIC ACID 250 MG/5 ML ORAL SOLN PO SCH ×2 (06:25→18:00)
[2022-11-09] MEDS: SODIUM ZIRCONIUM CYCL 10 GM PAK PO SCH (06:25)
[2022-11-09 06:38] LABS: Basophils # (auto) 0 10 ^3/uL (0-0.2); Basophils % (auto) 0.6 % (0.0-2.0); Eosinophils # (auto) 0.2 10 ^3/uL (0-0.8); Eosinophils % (auto) 2.3 % (0.0-7.0); Hematocrit 37.3 % (36.0-46.0); Hemoglobin 12.2 g/dL (12.2-16.2); Lymphocytes # (auto) 2.1 10 ^3/uL (0.4-5.4); Lymphocytes % (auto) 29.5 % (10.0-50.0); Mean Corpuscular Hemoglobin 30.2 pg (28.0-32.0); Mean Corpuscular Hgb Conc. 32.6 g/dL (32.0-36.0); Mean Corpuscular Volume 92.4 fL (80.0-100.0); Monocytes # (auto) 0.9 10 ^3/uL (0-1.3); Monocytes % (auto) 11.9 % (0.0-12.0); Neutrophils % (auto) 55.7 % (37.0-80.0); Nucleated Red Blood Cells % 0.1 %; Red Blood Cells 4.03 10^6/uL (4.0-5.20); Red Cell Distribution Width 16.3 % (11.8-14.3); White Blood Cell 7.2 10^3/uL (4.4-10.8)
[2022-11-09 06:52] LABS: Calcium 9.2 mg/dL (8.5-10.1); Potassium 5.1 mmol/L (3.5-5.1)
[2022-11-09 06:56] LABS: BUN/Creatinine Ratio 25.9 (10.0-20.0)
[2022-11-09 08:12] VITALS: BP 128/73
[2022-11-09] MEDS: cefTRIAXone 1GM/50ML D5W 50 ML IV SCH (10:00)
[2022-11-09] MEDS: AZITHROMYCIN 500MG/ 250ML 250 ML IV SCH (10:00)
[2022-11-09] MEDS: DOCUSATE SOD 100 MG CAP PO SCH (10:01)
[2022-11-09] MEDS: ASPirin 81 mg TAB PO SCH (10:01)
[2022-11-09] MEDS: ENOXAPARIN SOD 40 MG/0.4 ML SYRINGE SC SCH (10:03)
[2022-11-09] MEDS: METOPROLOL TARTRATE 50 MG TAB PO SCH (10:13)
[2022-11-09 12:45] VITALS: BP 120/73
[2022-11-09] MEDS ORDERED: AMOX500T86 PO (12:51)
[2022-11-09] MEDS: CITALOPRAM HYDROBR 20 MG TAB PO SCH (18:00)
== END 2022-11-09 17:00 | disposition home or self-care (01) | DRG 193 ==
LOC: EDBD 00:04 → ER 00:04 → TELE 12:06 → TELE-WESTW 11-06 18:22
PROVIDERS: ADMIT Registered Nurse; ATTEND Internal Medicine Pulmonary Disease
PROC: 05HC33Z Insertion of Infusion Device into Left Basilic Vein, Percutaneous Approach (ICD-10-PCS; principal; 2022-11-08)
PROC: B54NZZA Ultrasonography of Left Upper Extremity Veins, Guidance (ICD-10-PCS; 2022-11-08)
DX: J18.9 Pneumonia, unspecified organism (principal); J96.21 Acute and chronic respiratory failure with hypoxia; N17.9 Acute kidney failure, unspecified; J44.0 Chronic obstructive pulmonary disease with (acute) lower respiratory infection; Z68.41 Body mass index [BMI] 40.0-44.9, adult; E66.01 Morbid (severe) obesity due to excess calories; E87.5 Hyperkalemia; E78.5 Hyperlipidemia, unspecified; I12.9 Hypertensive chronic kidney disease with stage 1 through stage 4 chronic kidney disease, or unspecified chronic kidney disease; E11.22 Type 2 diabetes mellitus with diabetic chronic kidney disease; K21.9 Gastro-esophageal reflux disease without esophagitis; M10.9 Gout, unspecified; N18.31 Chronic kidney disease, stage 3a; F20.9 Schizophrenia, unspecified; F32.A Depression, unspecified; Z80.9 Family history of malignant neoplasm, unspecified; Z83.3 Family history of diabetes mellitus
CPT/HCPCS: 36415; 36600; 71045; 80048; 80053; 80061; 80307; 81001; 82306; 82570; 82805; 82962; 83036; 83880; 84100; 84132; 84156; 84300; 84443; 84484; 84550; 85025; 85379; 85610; 85730; 93005; 94640; 96361; 96365; 96375; C9113; G0378; J0696; J1815

== ENCOUNTER 2022-11-26 14:28 | Emergency (ER) | payer MEDICARE, MEDICAID ==
[~2022-11-26] VITALS: Ht 165.1 cm; Wt 118.0 kg
[~2022-11-26 14:28] MED LIST changes: +AMOX500T86 PO; -CEPH-510 PO; -NITR-87 PO
[2022-11-26 16:50] VITALS: BP 140/60
[2022-11-26] MEDS ORDERED: ACETAMINOPHEN 500 MG TAB PO ONE (17:30)
[2022-11-26] MEDS ORDERED: ACET1CAP14 PO (17:32)
== END 2022-11-26 18:14 | disposition home or self-care (01) ==
LOC: ER 14:28 → EDBD 14:28 → ER 18:14
DX: S30.0XXA Contusion of lower back and pelvis, initial encounter (principal); F32.9 Major depressive disorder, single episode, unspecified; E78.5 Hyperlipidemia, unspecified; F20.9 Schizophrenia, unspecified; I12.9 Hypertensive chronic kidney disease with stage 1 through stage 4 chronic kidney disease, or unspecified chronic kidney disease; N18.9 Chronic kidney disease, unspecified; Z88.5 Allergy status to narcotic agent; Z79.899 Other long term (current) drug therapy; Z98.890 Other specified postprocedural states; W18.39XA Other fall on same level, initial encounter; Y93.89 Activity, other specified; Y92.89 Other specified places as the place of occurrence of the external cause; Y99.8 Other external cause status
CPT/HCPCS: 72170; 72220

== ENCOUNTER 2023-03-04 00:42 | Inpatient (IN) | payer MEDICARE, MEDICAID ==
[~2023-03-04] VITALS: Ht 172.7 cm; Wt 112.9 kg
[2023-03-04] VITALS (7 sets, daily range): BP systolic 150; BP diastolic 90; PULSE 98–118; RESP 18–20; TEMP 98.7; O2SAT 94–95
[~2023-03-04 00:42] MED LIST changes: +ACET1CAP14 PO; +LEVO175T4 PO; -LEVO175T66 PO; +LORA-1121 PO; -LORA0.5T20 PO; +OMEG-20 PO; -OMEG100078 PO
[2023-03-04 03:24] LABS: Basophils # (auto) 0.1 10 ^3/uL (0-0.2); Basophils % (auto) 1.7 % (0.0-2.0); Eosinophils # (auto) 0.2 10 ^3/uL (0-0.8); Eosinophils % (auto) 3.6 % (0.0-7.0); Hematocrit 35.8 % (36.0-46.0); Hemoglobin 11.7 g/dL (12.2-16.2); Lymphocytes # (auto) 1.3 10 ^3/uL (0.4-5.4); Lymphocytes % (auto) 24.3 % (10.0-50.0); Mean Corpuscular Hemoglobin 28.9 pg (28.0-32.0); Mean Corpuscular Hgb Conc. 32.6 g/dL (32.0-36.0); Mean Corpuscular Volume 88.7 fL (80.0-100.0); Monocytes # (auto) 0.5 10 ^3/uL (0-1.3); Monocytes % (auto) 8.8 % (0.0-12.0); Neutrophils # (auto) 3.4 10 ^3/uL (1.6-8.6); Neutrophils % (auto) 61.6 % (37.0-80.0); Nucleated Red Blood Cells % 0.1 %; Red Blood Cells 4.04 10^6/uL (4.0-5.20); White Blood Cell 5.6 10^3/uL (4.4-10.8)
[2023-03-04 03:45] LABS: INR 1.04 (0.9-1.15); Partial Thromboplastin Time 25.6 SEC (24.5-34.5); Prothrombin Time 10.9 sec (9.3-11.8)
[2023-03-04 03:51] LABS: Albumin 3.3 g/dL (3.4-5.0); Anion Gap 4 (5-15); BUN/Creatinine Ratio 21.4 (10.0-20.0); Blood Urea Nitrogen 24 mg/dL (7-18); Carbon Dioxide 25 mmol/L (21-32); Chloride 111 mmol/L (98-107); GFR African American 61 mL/min; GFR Non-African American 50 mL/min; Glucose 86 mg/dL (74-106); Magnesium 2.1 mg/dL (1.6-2.6); Potassium 5.2 mmol/L (3.5-5.1); Sodium 140 mmol/L (136-145)
[2023-03-04 03:55] LABS: Alanine Aminotransferase 16 U/L (13-56); Alkaline Phosphatase 91 U/L (45-117); Aspartate Aminotransferase 15 U/L (15-37); Bilirubin, Total < 0.1 mg/dL (0.2-1.0); Total Protein 8.1 g/dL (6.4-8.2)
[2023-03-04] MEDS ORDERED: IOHEXOL 350 MG/ML 100ML IJ ONE (05:15)
[2023-03-04] MEDS ORDERED: DOCUSATE SOD 100 MG CAP PO PRN (11:30)
[2023-03-04] MEDS ORDERED: NITROGLYCERIN 0.4 MG SL TAB SL PRN (11:30)
[2023-03-04] MEDS ORDERED: MORPHINE SULFATE INJ 2 MG/ml SYRG IV PRN (11:30)
[2023-03-04] MEDS ORDERED: HYDROcodone-ACET 5/325MG TAB PO PRN (11:30)
[2023-03-04] MEDS ORDERED: ACETAMINOPHEN 325 MG TAB PO PRN (11:30)
[2023-03-04] MEDS ORDERED: ONDANSETRON HCL 4 MG/2 ML VIAL IV PRN (11:30)
[2023-03-04] MEDS ORDERED: ALBUTEROL SULF 2.5 MG/0.5ML(0.5%) NEB SOLN NEB PRN (11:45)
[2023-03-04] MEDS ORDERED: IPRATROPIUM BROM 0.5 MG/2.5ML INH SOL NEB PRN (11:45)
[2023-03-04] MEDS: SODIUM CHLOR 0.9% PF (SALINE LOCK) 10ML VIAL/SYR IV SCH ×2 (14:12→22:50)
[2023-03-04] MEDS ORDERED: QUETIAPINE FUMERATE 300 MG PO SCH (18:00)
[2023-03-04] MEDS ORDERED: PATIENTS OWN MEDICATION (Atorvastatin Calcium 1 TAB) PO SCH (18:00)
[2023-03-04] MEDS: QUEtiapine FUMARATE 100 MG TAB PO SCH (18:18)
[2023-03-04] MEDS: CITALOPRAM HYDROBR 20 MG TAB PO SCH (18:18)
[2023-03-04] MEDS: VALPROIC ACID 250 MG/5 ML ORAL SOLN PO SCH (18:33)
[2023-03-04 20:57] LABS: Magnesium 2.4 mg/dL (1.6-2.6); Potassium 5.1 mmol/L (3.5-5.1)
[2023-03-04] MEDS: ATORVASTATIN 20 MG TAB PO SCH (22:47)
[2023-03-04] MEDS: METOPROLOL TARTRATE 50 MG TAB PO SCH (22:50)
[2023-03-05] VITALS (8 sets, daily range): BP systolic 116–135; BP diastolic 66–80; PULSE 68–82; RESP 18; TEMP 97.4–98.2; O2SAT 96–98
[2023-03-05] MEDS: SODIUM CHLOR 0.9% PF (SALINE LOCK) 10ML VIAL/SYR IV SCH ×4 (06:05→21:54)
[2023-03-05] MEDS: QUEtiapine FUMARATE 100 MG TAB PO SCH ×2 (06:51→17:57)
[2023-03-05] MEDS: VALPROIC ACID 250 MG/5 ML ORAL SOLN PO SCH ×2 (06:51→17:56)
[2023-03-05] MEDS ORDERED: PATIENTS OWN MEDICATION (Quetiapine Fumerate (Seroquel) 100 MG) PO SCH (07:00)
[2023-03-05] MEDS ORDERED: PATIENTS OWN MEDICATION (Levothyroxine Sodium 175 MCG) PO SCH (07:00)
[2023-03-05 07:40] LABS: Basophils # (auto) 0 10 ^3/uL (0-0.2); Basophils % (auto) 0.5 % (0.0-2.0); Eosinophils # (auto) 0.1 10 ^3/uL (0-0.8); Eosinophils % (auto) 2.4 % (0.0-7.0); Hematocrit 34.9 % (36.0-46.0); Hemoglobin 11.3 g/dL (12.2-16.2); Lymphocytes % (auto) 38.4 % (10.0-50.0); Mean Corpuscular Hemoglobin 28.9 pg (28.0-32.0); Mean Corpuscular Hgb Conc. 32.3 g/dL (32.0-36.0); Mean Corpuscular Volume 89.4 fL (80.0-100.0); Monocytes # (auto) 0.7 10 ^3/uL (0-1.3); Monocytes % (auto) 13.1 % (0.0-12.0); Neutrophils # (auto) 2.4 10 ^3/uL (1.6-8.6); Neutrophils % (auto) 45.6 % (37.0-80.0); Red Blood Cells 3.91 10^6/uL (4.0-5.20); Red Cell Distribution Width 16.6 % (11.8-14.3); White Blood Cell 5.3 10^3/uL (4.4-10.8)
[2023-03-05 07:41] LABS: Urine Bacteria NONE SEEN /hpf (None Seen); Urine Blood Negative /uL (Negative); Urine Clarity Clear (Clear); Urine Protein, UAD Negative (Negative); Urine Specific Gravity 1.015 (1.001-1.035); Urine Urobilinogen Normal (Negative); Urine WBC 4 /hpf (0 - 5); Urine pH 6.5 (5.0-8.0)
[2023-03-05 07:50] LABS: Urine Color Straw (Yellow)
[2023-03-05] MEDS: LEVOTHYROXINE SODIUM 50 MCG TAB PO SCH (08:15)
[2023-03-05] MEDS: ALLOPURINOL 100 MG TAB PO SCH (10:03)
[2023-03-05] MEDS: METOPROLOL TARTRATE 50 MG TAB PO SCH ×2 (10:04→21:27)
[2023-03-05 11:15] LABS: Rapid Influenza A Negative (Negative); Rapid Influenza B Negative (Negative)
[2023-03-05 11:16] LABS: COVID19 ANTIGEN SOFIA FIA NEGATIVE (NEGATIVE)
[2023-03-05 11:31] LABS: Potassium 5.5 mmol/L (3.5-5.1)
[2023-03-05 11:35] LABS: BUN/Creatinine Ratio 19.1 (10.0-20.0); Bilirubin, Total 0.2 mg/dL (0.2-1.0); Total Protein 7.4 g/dL (6.4-8.2)
[2023-03-05] MEDS ORDERED: cefTRIAXone 1GM/50ML D5W 50 ML IV ONE (11:45)
[2023-03-05] MEDS ORDERED: FUROSEMIDE 20 MG/2 ML VIAL IV ONE ×2 (11:45→13:30)
[2023-03-05] MEDS ORDERED: AZITHROMYCIN 500MG/ 250ML 250 ML IV ONE (11:45)
[2023-03-05] MEDS ORDERED: ALBUTEROL SULF 2.5 MG/0.5ML(0.5%) NEB SOLN NEB PRN (13:30)
[2023-03-05] MEDS: CITALOPRAM HYDROBR 20 MG TAB PO SCH (17:57)
[2023-03-05] MEDS: ENOXAPARIN SOD 40 MG/0.4 ML SYRINGE SC SCH (21:27)
[2023-03-05] MEDS: ATORVASTATIN 20 MG TAB PO SCH (21:27)
[2023-03-06] VITALS (11 sets, daily range): BP systolic 105–153; BP diastolic 57–81; PULSE 70–96; RESP 16–19; TEMP 97.9–98.4; O2SAT 94–100
[2023-03-06] MEDS: VALPROIC ACID 250 MG/5 ML ORAL SOLN PO SCH ×2 (06:28→18:33)
[2023-03-06] MEDS: SODIUM CHLOR 0.9% PF (SALINE LOCK) 10ML VIAL/SYR IV SCH ×3 (06:29→22:53)
[2023-03-06] MEDS: LEVOTHYROXINE SODIUM 50 MCG TAB PO SCH (06:29)
[2023-03-06] MEDS: QUEtiapine FUMARATE 100 MG TAB PO SCH ×2 (06:29→18:32)
[2023-03-06 06:58] LABS: Basophils # (auto) 0 10 ^3/uL (0-0.2); Basophils % (auto) 0.4 % (0.0-2.0); Eosinophils # (auto) 0.2 10 ^3/uL (0-0.8); Eosinophils % (auto) 2.9 % (0.0-7.0); Hematocrit 36.4 % (36.0-46.0); Hemoglobin 11.6 g/dL (12.2-16.2); Lymphocytes # (auto) 2.4 10 ^3/uL (0.4-5.4); Lymphocytes % (auto) 42.4 % (10.0-50.0); Mean Corpuscular Hemoglobin 28.9 pg (28.0-32.0); Mean Corpuscular Hgb Conc. 31.7 g/dL (32.0-36.0); Mean Corpuscular Volume 91.1 fL (80.0-100.0); Monocytes # (auto) 0.7 10 ^3/uL (0-1.3); Monocytes % (auto) 11.7 % (0.0-12.0); Neutrophils # (auto) 2.5 10 ^3/uL (1.6-8.6); Neutrophils % (auto) 42.6 % (37.0-80.0); Nucleated Red Blood Cells % 0.4 %; White Blood Cell 5.8 10^3/uL (4.4-10.8)
[2023-03-06 08:31] LABS: BUN/Creatinine Ratio 22.2 (10.0-20.0); Calcium 8.5 mg/dL (8.7-10.4)
[2023-03-06 08:36] LABS: Potassium 5.6 mmol/L (3.5-5.1)
[2023-03-06] MEDS: FUROSEMIDE 40 MG/4 ML VIAL IV SCH (08:59)
[2023-03-06] MEDS: ENOXAPARIN SOD 40 MG/0.4 ML SYRINGE SC SCH (09:00)
[2023-03-06] MEDS: METOPROLOL TARTRATE 50 MG TAB PO SCH ×2 (09:00→22:53)
[2023-03-06] MEDS ORDERED: cefTRIAXone 1GM/50ML D5W 50 ML IV SCH (09:00)
[2023-03-06] MEDS: ALLOPURINOL 100 MG TAB PO SCH (09:00)
[2023-03-06] MEDS ORDERED: AZITHROMYCIN 500MG/ 250ML 250 ML IV SCH (10:00)
[2023-03-06] MEDS ORDERED: FUROSEMIDE 20 MG/2 ML VIAL IV SCH (10:00)
[2023-03-06] MEDS: CITALOPRAM HYDROBR 20 MG TAB PO SCH (18:32)
[2023-03-06] MEDS: ATORVASTATIN 20 MG TAB PO SCH (22:52)
[2023-03-06] MEDS: SODIUM ZIRCONIUM CYCL 10 GM PAK PO SCH (22:52)
[2023-03-07 04:45] VITALS: BP 112/55; PULSE 68; RESP 14; TEMP 98.2; O2SAT 98
[2023-03-07] MEDS: QUEtiapine FUMARATE 100 MG TAB PO SCH (05:58)
[2023-03-07] MEDS: VALPROIC ACID 250 MG/5 ML ORAL SOLN PO SCH (05:58)
[2023-03-07] MEDS: LEVOTHYROXINE SODIUM 50 MCG TAB PO SCH (05:59)
[2023-03-07] MEDS: SODIUM CHLOR 0.9% PF (SALINE LOCK) 10ML VIAL/SYR IV SCH ×2 (05:59→14:00)
[2023-03-07] MEDS: SODIUM ZIRCONIUM CYCL 10 GM PAK PO SCH ×2 (05:59→14:30)
[2023-03-07 06:11] LABS: Basophils # (auto) 0 10 ^3/uL (0-0.2); Basophils % (auto) 0.5 % (0.0-2.0); Eosinophils # (auto) 0.2 10 ^3/uL (0-0.8); Eosinophils % (auto) 3.1 % (0.0-7.0); Hemoglobin 11.4 g/dL (12.2-16.2); Lymphocytes # (auto) 2.3 10 ^3/uL (0.4-5.4); Lymphocytes % (auto) 44.5 % (10.0-50.0); Mean Corpuscular Hemoglobin 28.9 pg (28.0-32.0); Mean Corpuscular Hgb Conc. 32.4 g/dL (32.0-36.0); Mean Corpuscular Volume 89.3 fL (80.0-100.0); Monocytes # (auto) 0.7 10 ^3/uL (0-1.3); Monocytes % (auto) 13.2 % (0.0-12.0); Neutrophils % (auto) 38.7 % (37.0-80.0); Nucleated Red Blood Cells % 0.3 %; Red Blood Cells 3.93 10^6/uL (4.0-5.20); Red Cell Distribution Width 16.8 % (11.8-14.3); White Blood Cell 5.2 10^3/uL (4.4-10.8)
[2023-03-07 06:18] LABS: Chloride 102 mmol/L (98-107); Potassium 4.9 mmol/L (3.5-5.1); Sodium 138 mmol/L (136-145)
[2023-03-07 06:20] LABS: Calcium 8.9 mg/dL (8.7-10.4)
[2023-03-07 06:24] LABS: BUN/Creatinine Ratio 22.5 (10.0-20.0); Blood Urea Nitrogen 29 mg/dL (9-23); Glucose 84 mg/dL (74-106)
[2023-03-07 08:00] VITALS: BP 125/73; PULSE 70; RESP 19; TEMP 97.7; O2SAT 95
[2023-03-07 08:20] VITALS: O2SAT 91
[2023-03-07] MEDS: ALLOPURINOL 100 MG TAB PO SCH (09:00)
[2023-03-07] MEDS: FUROSEMIDE 40 MG/4 ML VIAL IV SCH (09:00)
[2023-03-07] MEDS: METOPROLOL TARTRATE 50 MG TAB PO SCH (09:01)
[2023-03-07] MEDS: ENOXAPARIN SOD 40 MG/0.4 ML SYRINGE SC SCH (09:01)
[2023-03-07] MEDS ORDERED: POLYETHYLENE GLYCOL 17 GM PWDR PO ONE (09:30)
[2023-03-07] MEDS ORDERED: AZITHROMYCIN 250 MG TAB PO SCH (10:00)
[2023-03-07] MEDS ORDERED: FURO1TAB31 PO (10:00)
[2023-03-07 11:15] LABS: Base Excess 2.5 mmol/L (-2.0-2.0)
[2023-03-07 12:57] VITALS: BP 125/73; PULSE 70; RESP 19; TEMP 97.7; O2SAT 95
== END 2023-03-07 15:44 | disposition home or self-care (01) | DRG 291 ==
LOC: EDBD 00:42 → ER 00:42 → TELE 11:30 → TELE-EAST 03-05 10:50
PROVIDERS: ADMIT Internal Medicine; ATTEND Student in an Organized Health Care Education/Training Program
DX: I13.0 Hypertensive heart and chronic kidney disease with heart failure and stage 1 through stage 4 chronic kidney disease, or unspecified chronic kidney disease (principal); I50.31 Acute diastolic (congestive) heart failure; J96.00 Acute respiratory failure, unspecified whether with hypoxia or hypercapnia; J44.1 Chronic obstructive pulmonary disease with (acute) exacerbation; E46 Unspecified protein-calorie malnutrition; E03.9 Hypothyroidism, unspecified; F31.9 Bipolar disorder, unspecified; N18.30 Chronic kidney disease, stage 3 unspecified; E66.9 Obesity, unspecified; E78.00 Pure hypercholesterolemia, unspecified; F20.9 Schizophrenia, unspecified; M10.9 Gout, unspecified; Z96.652 Presence of left artificial knee joint; Z68.37 Body mass index [BMI] 37.0-37.9, adult; Z88.5 Allergy status to narcotic agent; Z83.3 Family history of diabetes mellitus; Z80.9 Family history of malignant neoplasm, unspecified; Z98.51 Tubal ligation status; Z90.12 Acquired absence of left breast and nipple
CPT/HCPCS: 36415; 36600; 71045; 71275; 80048; 80053; 81001; 82805; 83605; 83735; 83880; 84132; 84484; 85025; 85379; 85610; 85730; 87040; 87426; 87804; 93005; 93306; 93970; 97110; 97116; 97163; 97530; G0378; J0696

== ENCOUNTER → 2023-04-18 | Outpatient (CLI) | payer MEDICARE, MEDICAID ==
[~2023-04-18] MED LIST changes: -AMOX500T86 PO; -BENZ100C19 PO; -DOCU-94 PO; +FURO1TAB31 PO
== END | disposition home or self-care (01) ==
LOC: Rad HDHVI 09:10
PROVIDERS: ATTEND Internal Medicine Cardiovascular Disease
DX: I10 Essential (primary) hypertension (principal); E78.5 Hyperlipidemia, unspecified
CPT/HCPCS: 93880

== ENCOUNTER → 2023-04-27 | Outpatient (CLI) | payer MEDICARE, MEDICAID ==
[~2023-04-27] VITALS: Ht 170.2 cm; Wt 114.8 kg
[~2023-04-27] MED LIST changes: +ADENOSINE 90 MG/30 ML INJ IV ONE; +ADENOSINE 96 MG in GIVE UN-DILUTED 0 ML IV ONE
== END | disposition home or self-care (01) ==
LOC: Rad HDHVI 10:15
PROVIDERS: ATTEND Internal Medicine Cardiovascular Disease
DX: R07.9 Chest pain, unspecified (principal); R06.02 Shortness of breath; E78.5 Hyperlipidemia, unspecified; I10 Essential (primary) hypertension; E66.8 Other obesity; Z82.49 Family history of ischemic heart disease and other diseases of the circulatory system
CPT/HCPCS: 78452; 93005; 96374; 96375; A9500; J0153

== ENCOUNTER 2023-07-29 08:02 | Inpatient (IN) | payer MEDICARE, MEDICAID ==
[~2023-07-29] VITALS: Ht 170.2 cm; Wt 120.0 kg
[~2023-07-29 08:02] MED LIST changes: -ADENOSINE 90 MG/30 ML INJ IV ONE; -ADENOSINE 96 MG in GIVE UN-DILUTED 0 ML IV ONE
[2023-07-29] MEDS ORDERED: FUROSEMIDE 20 MG/2 ML VIAL IV ONE (08:30)
[2023-07-29] MEDS ORDERED: methylPREDNISolone SOD SUCC 125 MG/2 ML VL IV ONE (08:30)
[2023-07-29] MEDS ORDERED: IPRATROPIUM BROM 0.5 MG/2.5ML INH SOL NEB ONE (08:30)
[2023-07-29] MEDS ORDERED: ALBUTEROL SULF 2.5 MG/0.5ML(0.5%) NEB SOLN NEB ONE (08:30)
[2023-07-29] MEDS ORDERED: SODIUM CHLORIDE 0.9% 1,000 ML IV ONE ×2 (08:30)
[2023-07-29] MEDS ORDERED: cefTRIAXone 1GM/50ML D5W 50 ML IV ONE (08:30)
[2023-07-29] MEDS ORDERED: AZITHROMYCIN 500MG/ 250ML 250 ML IV ONE (08:30)
[2023-07-29 09:15] LABS: Hematocrit 34.1 % (36.0-46.0); Hemoglobin 10.9 g/dL (12.2-16.2); Mean Corpuscular Hemoglobin 29.5 pg (28.0-32.0); Mean Corpuscular Hgb Conc. 32.1 g/dL (32.0-36.0); Mean Corpuscular Volume 91.9 fL (80.0-100.0); Red Blood Cells 3.71 10^6/uL (4.0-5.20); White Blood Cell 3.7 10^3/uL (4.4-10.8)
[2023-07-29 09:17] LABS: Basophils % (manual) 0 (0.0-2.0); Blast Cells 0; Eosinophils % (manual) 0 (0-7); Metamyelocytes % 0; Myelocytes % 0; Promyelocytes % 0
[2023-07-29 09:25] LABS: Urine WBC None Seen /hpf (0 - 5)
[2023-07-29 09:29] LABS: Urine Bacteria NONE SEEN /hpf (None Seen); Urine Blood Negative /uL (Negative); Urine Clarity Clear (Clear); Urine Color Yellow (Yellow); Urine Protein, UAD TRACE (Negative); Urine Specific Gravity 1.015 (1.001-1.035)
[2023-07-29 09:34] LABS: Anisocytosis Slight; Band Neutrophils % (manual) 5; Lymphocytes % (manual) 31 (10.0-50.0); Monocytes % (manual) 15 (0-12); Platelet Estimate Decreased; Reactive Lymphocytes 1
[2023-07-29 09:52] LABS: Alanine Aminotransferase 17 U/L (7-40); Alkaline Phosphatase 81 U/L (46-116); Anion Gap 8 (5-15); Aspartate Aminotransferase 22 U/L (13-40); BUN/Creatinine Ratio 14.4 (10.0-20.0); Bilirubin, Total 0.4 mg/dL (0.2-1.0); Blood Urea Nitrogen 16 mg/dL (9-23); Calcium 8.9 mg/dL (8.5-10.1); Carbon Dioxide 31 mmol/L (20-30); Chloride 100 mmol/L (98-107); Glucose 90 mg/dL (74-106); Potassium 3.3 mmol/L (3.5-5.1); Sodium 139 mmol/L (136-145)
[2023-07-29 09:53] LABS: Total Protein 6.8 g/dL (5.7-8.2)
[2023-07-29 14:05] LABS: Rapid Influenza A Negative (Negative); Rapid Influenza B Negative (Negative)
[2023-07-29 14:06] LABS: COVID19 ANTIGEN SOFIA FIA NEGATIVE (NEGATIVE)
[2023-07-29 14:49] VITALS: PULSE 76; RESP 20; O2SAT 96
[2023-07-29] MEDS ORDERED: MORPHINE SULFATE INJ 2 MG/ml SYRG IV PRN (15:30)
[2023-07-29] MEDS ORDERED: POTASSIUM EFFERVESENT TAB 25 MEQ PO ONE (15:30)
[2023-07-29] MEDS ORDERED: ALBUTEROL SULF 2.5 MG/0.5ML(0.5%) NEB SOLN NEB PRN (15:30)
[2023-07-29] MEDS ORDERED: NITROGLYCERIN 0.4 MG SL TAB SL PRN (15:30)
[2023-07-29] MEDS ORDERED: METHOTREXATE 2.5 MG TAB PO SCH (15:30)
[2023-07-29] MEDS ORDERED: ACETAMINOPHEN 325 MG TAB PO PRN (15:30)
[2023-07-29 15:31] VITALS: BP 124/55; PULSE 76; RESP 18; TEMP 98.1; O2SAT 97
[2023-07-29 15:49] LABS: Triglycerides 103 mg/dL (< 150)
[2023-07-29 15:50] LABS: LDL Cholesterol 83 mg/dL (< 100)
[2023-07-29 15:51] LABS: Cholesterol 157 mg/dL (< 200); HDL Cholesterol 45 mg/dL (40-59)
[2023-07-29] MEDS: CITALOPRAM HYDROBR 20 MG TAB PO SCH (18:07)
[2023-07-29] MEDS: IPRATROPIUM BROM 0.5 MG/2.5ML INH SOL NEB SCH ×2 (18:59→22:50)
[2023-07-29 19:00] VITALS: PULSE 73; RESP 18; O2SAT 97
[2023-07-29] MEDS: ALBUTEROL SULF 2.5 MG/0.5ML(0.5%) NEB SOLN NEB SCH ×2 (19:00→22:50)
[2023-07-29 19:06] VITALS: PULSE 72; RESP 18; O2SAT 98
[2023-07-29] MEDS ORDERED: IOHEXOL 350 MG/ML 100ML IJ ONE (20:29)
[2023-07-29] MEDS: ATORVASTATIN 20 MG TAB PO SCH (22:32)
[2023-07-29] MEDS: methylPREDNISolone SOD SUCC 40 MG/ML VL IV SCH (22:32)
[2023-07-29] MEDS: METOPROLOL TARTRATE 50 MG TAB PO SCH (22:32)
[2023-07-29 22:50] VITALS: PULSE 78; RESP 16; O2SAT 92
[2023-07-29 22:56] VITALS: PULSE 78; RESP 16; O2SAT 95
[2023-07-29 23:09] LABS: Amphetamine Screen, Urine Neg (NEGATIVE); Barbiturate Scree,Urine Neg (NEGATIVE); Benzodiazephine Screen, Urine Neg (NEGATIVE); Cannabinoid Screen, Urine Neg (NEGATIVE); Cocaine Screen, Urine Neg (NEGATIVE); Opiate Scree,Urine Neg (NEGATIVE); Phencyclidine Screen, Urine Neg (NEGATIVE)
[2023-07-30] VITALS (17 sets, daily range): BP systolic 108–135; BP diastolic 51–75; PULSE 66–88; RESP 16–22; TEMP 97.1–98.7; O2SAT 94–98
[2023-07-30] MEDS: IPRATROPIUM BROM 0.5 MG/2.5ML INH SOL NEB SCH ×5 (01:43→19:23)
[2023-07-30] MEDS: ALBUTEROL SULF 2.5 MG/0.5ML(0.5%) NEB SOLN NEB SCH ×5 (01:43→19:23)
[2023-07-30 04:52] LABS: Basophils # (auto) 0 10 ^3/uL (0-0.2); Basophils % (auto) 0.2 % (0.0-2.0); Eosinophils # (auto) 0 10 ^3/uL (0-0.8); Hematocrit 34.1 % (36.0-46.0); Lymphocytes # (auto) 0.6 10 ^3/uL (0.4-5.4); Lymphocytes % (auto) 14.2 % (10.0-50.0); Mean Corpuscular Hemoglobin 29.1 pg (28.0-32.0); Mean Corpuscular Hgb Conc. 32.3 g/dL (32.0-36.0); Mean Corpuscular Volume 90.1 fL (80.0-100.0); Monocytes # (auto) 0.3 10 ^3/uL (0-1.3); Monocytes % (auto) 7.4 % (0.0-12.0); Neutrophils # (auto) 3.5 10 ^3/uL (1.6-8.6); Neutrophils % (auto) 78.2 % (37.0-80.0); Nucleated Red Blood Cells % 0.4 %; Red Blood Cells 3.78 10^6/uL (4.0-5.20); Red Cell Distribution Width 16.8 % (11.8-14.3); White Blood Cell 4.5 10^3/uL (4.4-10.8)
[2023-07-30 05:09] LABS: Alanine Aminotransferase 10 U/L (7-40); Albumin 3.8 g/dL (3.2-4.8); Alkaline Phosphatase 75 U/L (46-116); Anion Gap 6 (5-15); Aspartate Aminotransferase 18 U/L (13-40); BUN/Creatinine Ratio 16.4 (10.0-20.0); Bilirubin, Total 0.3 mg/dL (0.2-1.0); Blood Urea Nitrogen 18 mg/dL (9-23); Calcium 8.4 mg/dL (8.7-10.4); Carbon Dioxide 31 mmol/L (20-30); Chloride 102 mmol/L (98-107); Glucose 134 mg/dL (74-106); Potassium 3.7 mmol/L (3.5-5.1); Sodium 139 mmol/L (136-145)
[2023-07-30] MEDS: VALPROIC ACID 250 MG/5 ML ORAL SOLN PO SCH (06:30)
[2023-07-30] MEDS: LEVOTHYROXINE SODIUM 100 MCG TAB PO SCH (06:30)
[2023-07-30] MEDS: QUEtiapine FUMARATE 100 MG TAB PO SCH (06:30)
[2023-07-30] MEDS: LEVOTHYROXINE SODIUM 25 MCG TAB PO SCH (06:30)
[2023-07-30] MEDS: LEVOTHYROXINE SODIUM 50 MCG TAB PO SCH (06:30)
[2023-07-30] MEDS: methylPREDNISolone SOD SUCC 40 MG/ML VL IV SCH (09:12)
[2023-07-30] MEDS: ENOXAPARIN SOD 40 MG/0.4 ML SYRINGE SC SCH (09:14)
[2023-07-30] MEDS: METOPROLOL TARTRATE 50 MG TAB PO SCH ×2 (09:15→21:01)
[2023-07-30] MEDS: LORazepam 0.5 MG TAB PO SCH (09:15)
[2023-07-30] MEDS: ALLOPURINOL 100 MG TAB PO SCH (09:16)
[2023-07-30] MEDS ORDERED: POTASSIUM CHL 20 Meq TABLET PO ONE (11:45)
[2023-07-30] MEDS ORDERED: DOCUSATE SOD 100 MG CAP PO ONE (11:45)
[2023-07-30] MEDS ORDERED: DOCUSATE SOD 100 MG CAP PO PRN ×2 (11:45→12:00)
[2023-07-30] MEDS ORDERED: FUROSEMIDE 40 MG/4 ML VIAL IV ONE (11:45)
[2023-07-30] MEDS ORDERED: ALBUTEROL SULF 2.5 MG/0.5ML(0.5%) NEB SOLN NEB PRN (11:45)
[2023-07-30] MEDS: CITALOPRAM HYDROBR 20 MG TAB PO SCH (17:31)
[2023-07-30] MEDS: ATORVASTATIN 20 MG TAB PO SCH (21:02)
[2023-07-31] VITALS (13 sets, daily range): BP systolic 118–141; BP diastolic 67–79; PULSE 63–82; RESP 16–22; TEMP 97.5–98.3; O2SAT 90–99
[2023-07-31] MEDS: LEVOTHYROXINE SODIUM 50 MCG TAB PO SCH (06:00)
[2023-07-31 06:01] LABS: Chloride 103 mmol/L (98-107); Potassium 4.1 mmol/L (3.5-5.1); Sodium 143 mmol/L (136-145)
[2023-07-31] MEDS: LEVOTHYROXINE SODIUM 25 MCG TAB PO SCH (06:01)
[2023-07-31] MEDS: LEVOTHYROXINE SODIUM 100 MCG TAB PO SCH (06:01)
[2023-07-31] MEDS: QUEtiapine FUMARATE 100 MG TAB PO SCH (06:01)
[2023-07-31] MEDS: VALPROIC ACID 250 MG/5 ML ORAL SOLN PO SCH ×2 (06:01→17:37)
[2023-07-31 06:02] LABS: Anion Gap 6 (5-15); Calcium 8.4 mg/dL (8.7-10.4); Carbon Dioxide 34 mmol/L (20-30)
[2023-07-31 06:08] LABS: BUN/Creatinine Ratio 27.6 (10.0-20.0); Glucose 99 mg/dL (74-106); Magnesium 1.7 mg/dL (1.6-2.6)
[2023-07-31 06:09] LABS: Blood Urea Nitrogen 32 mg/dL (9-23)
[2023-07-31] MEDS: IPRATROPIUM BROM 0.5 MG/2.5ML INH SOL NEB SCH ×3 (07:00→18:21)
[2023-07-31] MEDS: ALBUTEROL SULF 2.5 MG/0.5ML(0.5%) NEB SOLN NEB SCH ×3 (07:00→18:21)
[2023-07-31] MEDS: FUROSEMIDE 40 MG/4 ML VIAL IV SCH (08:28)
[2023-07-31] MEDS: LORazepam 0.5 MG TAB PO SCH (08:29)
[2023-07-31] MEDS: ENOXAPARIN SOD 40 MG/0.4 ML SYRINGE SC SCH (08:29)
[2023-07-31] MEDS: POTASSIUM CHL 20 Meq TABLET PO SCH (08:29)
[2023-07-31] MEDS: ALLOPURINOL 100 MG TAB PO SCH (08:29)
[2023-07-31] MEDS: METOPROLOL TARTRATE 50 MG TAB PO SCH ×2 (08:30→21:22)
[2023-07-31] MEDS ORDERED: VALP1CAP4 PO (09:34)
[2023-07-31] MEDS ORDERED: METO-159 PO (09:38)
[2023-07-31] MEDS ORDERED: LEVO200T7 PO (09:41)
[2023-07-31] MEDS ORDERED: ERGO1CAP23 PO (09:48)
[2023-07-31] MEDS ORDERED: SODI650T PO (09:48)
[2023-07-31] MEDS ORDERED: HYDR25TA4 PO (09:48)
[2023-07-31] MEDS ORDERED: SODI10PA PO (09:48)
[2023-07-31] MEDS: CITALOPRAM HYDROBR 20 MG TAB PO SCH (17:37)
[2023-07-31] MEDS: ATORVASTATIN 20 MG TAB PO SCH (21:22)
[2023-08-01] VITALS (14 sets, daily range): BP systolic 104–126; BP diastolic 59–71; PULSE 50–102; RESP 16–20; TEMP 97.3–98.8; O2SAT 92–100
[2023-08-01] MEDS: LEVOTHYROXINE SODIUM 50 MCG TAB PO SCH (06:51)
[2023-08-01] MEDS: LEVOTHYROXINE SODIUM 100 MCG TAB PO SCH (06:51)
[2023-08-01] MEDS: LEVOTHYROXINE SODIUM 25 MCG TAB PO SCH (06:51)
[2023-08-01] MEDS: QUEtiapine FUMARATE 100 MG TAB PO SCH (06:51)
[2023-08-01] MEDS: VALPROIC ACID 250 MG/5 ML ORAL SOLN PO SCH ×2 (06:51→18:02)
[2023-08-01] MEDS: ALBUTEROL SULF 2.5 MG/0.5ML(0.5%) NEB SOLN NEB SCH ×3 (06:56→18:53)
[2023-08-01] MEDS: IPRATROPIUM BROM 0.5 MG/2.5ML INH SOL NEB SCH ×3 (06:56→18:53)
[2023-08-01] MEDS: ENOXAPARIN SOD 40 MG/0.4 ML SYRINGE SC SCH (09:28)
[2023-08-01] MEDS: FUROSEMIDE 40 MG/4 ML VIAL IV SCH (09:28)
[2023-08-01] MEDS: POTASSIUM CHL 20 Meq TABLET PO SCH (09:29)
[2023-08-01] MEDS: ALLOPURINOL 100 MG TAB PO SCH (09:29)
[2023-08-01] MEDS: LORazepam 0.5 MG TAB PO SCH (09:29)
[2023-08-01] MEDS: METOPROLOL TARTRATE 50 MG TAB PO SCH ×2 (09:29→21:55)
[2023-08-01] MEDS: CITALOPRAM HYDROBR 20 MG TAB PO SCH (18:02)
[2023-08-01] MEDS: ATORVASTATIN 20 MG TAB PO SCH (21:55)
[2023-08-02] VITALS (11 sets, daily range): BP systolic 117–133; BP diastolic 40–79; PULSE 51–96; RESP 16–20; TEMP 97.4–98.3; O2SAT 93–100
[2023-08-02] MEDS: LEVOTHYROXINE SODIUM 25 MCG TAB PO SCH (06:04)
[2023-08-02] MEDS: LEVOTHYROXINE SODIUM 100 MCG TAB PO SCH (06:04)
[2023-08-02] MEDS: LEVOTHYROXINE SODIUM 50 MCG TAB PO SCH (06:04)
[2023-08-02] MEDS: VALPROIC ACID 250 MG/5 ML ORAL SOLN PO SCH ×2 (06:04→18:00)
[2023-08-02] MEDS: QUEtiapine FUMARATE 100 MG TAB PO SCH (06:04)
[2023-08-02] MEDS: IPRATROPIUM BROM 0.5 MG/2.5ML INH SOL NEB SCH ×2 (06:54→11:45)
[2023-08-02] MEDS: ALBUTEROL SULF 2.5 MG/0.5ML(0.5%) NEB SOLN NEB SCH ×2 (06:54→11:45)
[2023-08-02] MEDS: FUROSEMIDE 40 MG/4 ML VIAL IV SCH (10:42)
[2023-08-02] MEDS: ENOXAPARIN SOD 40 MG/0.4 ML SYRINGE SC SCH (10:43)
[2023-08-02] MEDS: ALLOPURINOL 100 MG TAB PO SCH (10:43)
[2023-08-02] MEDS: POTASSIUM CHL 20 Meq TABLET PO SCH (10:43)
[2023-08-02] MEDS: METOPROLOL TARTRATE 50 MG TAB PO SCH (10:43)
[2023-08-02] MEDS: LORazepam 0.5 MG TAB PO SCH (10:44)
[2023-08-02 11:08] LABS: Base Excess 5.4 mmol/L (-2.0-2.0)
[2023-08-02] MEDS: CITALOPRAM HYDROBR 20 MG TAB PO SCH (18:00)
== END 2023-08-02 18:25 | disposition home or self-care (01) | DRG 291 ==
LOC: ER 08:02 → EDBD 08:02 → TELE 15:37 → TELE-WESTW 23:53
PROVIDERS: ADMIT Nurse Practitioner Family; ATTEND Internal Medicine
DX: I13.0 Hypertensive heart and chronic kidney disease with heart failure and stage 1 through stage 4 chronic kidney disease, or unspecified chronic kidney disease (principal); I50.31 Acute diastolic (congestive) heart failure; J96.00 Acute respiratory failure, unspecified whether with hypoxia or hypercapnia; Z68.41 Body mass index [BMI] 40.0-44.9, adult; E03.9 Hypothyroidism, unspecified; E66.01 Morbid (severe) obesity due to excess calories; E78.5 Hyperlipidemia, unspecified; E87.6 Hypokalemia; F20.9 Schizophrenia, unspecified; F32.A Depression, unspecified; J44.9 Chronic obstructive pulmonary disease, unspecified; M06.9 Rheumatoid arthritis, unspecified; M10.9 Gout, unspecified; Z98.51 Tubal ligation status; N18.9 Chronic kidney disease, unspecified; Z20.822 Contact with and (suspected) exposure to COVID-19; Z88.5 Allergy status to narcotic agent; Z83.3 Family history of diabetes mellitus
CPT/HCPCS: 36415; 36600; 71045; 71275; 80048; 80053; 80061; 80307; 81001; 82805; 83605; 83735; 83880; 84443; 84484; 85007; 85025; 85027; 85379; 87040; 87426; 87804; 93005; 93306; 93970; 94640; 96365; 96375; 97110; 97116; 97163; 97530; 99291; G0378

== ENCOUNTER 2023-08-06 13:53 | Inpatient (IN) | payer MEDICARE, MEDICAID ==
[~2023-08-06] VITALS: Ht 170.2 cm; Wt 111.8 kg
[~2023-08-06 13:53] MED LIST changes: +ERGO1CAP23 PO; +HYDR25TA4 PO; -LEVO175T4 PO; +LEVO200T7 PO; -MET50T PO; +METO-159 PO; +SODI10PA PO; +SODI650T PO; +VALP1CAP4 PO; -VALP250S19 PO
[2023-08-06 15:07] LABS: INR 1.1 (0.9-1.15); Partial Thromboplastin Time 24.5 SEC (24.5-34.5); Prothrombin Time 11.5 sec (9.3-11.8)
[2023-08-06 15:30] LABS: Basophils # (auto) 0 10 ^3/uL (0-0.2); Basophils % (auto) 0.4 % (0.0-2.0); Eosinophils # (auto) 0.1 10 ^3/uL (0-0.8); Eosinophils % (auto) 1.3 % (0.0-7.0); Hematocrit 35.1 % (36.0-46.0); Hemoglobin 11.4 g/dL (12.2-16.2); Lymphocytes # (auto) 1.8 10 ^3/uL (0.4-5.4); Lymphocytes % (auto) 28.5 % (10.0-50.0); Mean Corpuscular Hemoglobin 29.4 pg (28.0-32.0); Mean Corpuscular Hgb Conc. 32.5 g/dL (32.0-36.0); Mean Corpuscular Volume 90.5 fL (80.0-100.0); Monocytes # (auto) 0.8 10 ^3/uL (0-1.3); Monocytes % (auto) 12.2 % (0.0-12.0); Neutrophils # (auto) 3.6 10 ^3/uL (1.6-8.6); Neutrophils % (auto) 57.6 % (37.0-80.0); Nucleated Red Blood Cells % 0.3 %; Red Blood Cells 3.88 10^6/uL (4.0-5.20); Red Cell Distribution Width 16.5 % (11.8-14.3); White Blood Cell 6.3 10^3/uL (4.4-10.8)
[2023-08-06] MEDS ORDERED: NITROGLYCERIN 0.4 MG SL TAB SL PRN (17:45)
[2023-08-06] MEDS ORDERED: ONDANSETRON HCL 4 MG/2 ML VIAL IV PRN (17:45)
[2023-08-06] MEDS ORDERED: HYDROcodone-ACET 5/325MG TAB PO PRN (17:45)
[2023-08-06] MEDS ORDERED: MAGNESIUM SULFATE 1GM/100ML 100 ML IV ONE (17:45)
[2023-08-06] MEDS ORDERED: DOCUSATE SOD 100 MG CAP PO PRN (17:45)
[2023-08-06] MEDS ORDERED: MET50T PO (17:56)
[2023-08-06] MEDS ORDERED: LEVO175T4 PO (17:56)
[2023-08-06] MEDS ORDERED: VALP250S19 PO (17:56)
[2023-08-06] MEDS ORDERED: IPRATROPIUM BROM 0.5 MG/2.5ML INH SOL NEB PRN (18:00)
[2023-08-06] MEDS ORDERED: ALBUTEROL SULF 2.5 MG/0.5ML(0.5%) NEB SOLN NEB PRN (18:00)
[2023-08-06] MEDS ORDERED: METHOTREXATE 2.5 MG TAB PO SCH (18:00)
[2023-08-06] MEDS: CITALOPRAM HYDROBR 20 MG TAB PO SCH (18:22)
[2023-08-06 18:27] LABS: Alanine Aminotransferase 13 U/L (7-40); Alkaline Phosphatase 81 U/L (46-116); Anion Gap 10 (5-15); Aspartate Aminotransferase 15 U/L (13-40); Blood Urea Nitrogen 35 mg/dL (9-23); Calcium 9.2 mg/dL (8.7-10.4); Carbon Dioxide 26 mmol/L (20-30); Chloride 103 mmol/L (98-107); Glucose 91 mg/dL (74-106); Potassium 3.8 mmol/L (3.5-5.1); Sodium 139 mmol/L (136-145)
[2023-08-06 18:28] LABS: Albumin 4.4 g/dL (3.2-4.8); Bilirubin, Total 0.3 mg/dL (0.2-1.0); Total Protein 7.9 g/dL (5.7-8.2)
[2023-08-06 19:18] VITALS: BP 113/70; PULSE 70; RESP 16; TEMP 98.3; O2SAT 96
[2023-08-06] MEDS ORDERED: SODIUM CHLORIDE 0.9% 1,000 ML IV ONE (20:15)
[2023-08-06] MEDS: ATORVASTATIN 20 MG TAB PO SCH (22:59)
[2023-08-06] MEDS: METOPROLOL TARTRATE 50 MG TAB PO SCH (23:00)
[2023-08-07] VITALS (7 sets, daily range): BP systolic 116; BP diastolic 69; PULSE 67–77; RESP 13–20; TEMP 97.7; O2SAT 95–99
[2023-08-07 05:03] LABS: Anion Gap 8 (5-15); Carbon Dioxide 30 mmol/L (20-30); Chloride 101 mmol/L (98-107); Potassium 3.8 mmol/L (3.5-5.1); Sodium 139 mmol/L (136-145)
[2023-08-07 05:07] LABS: Alkaline Phosphatase 77 U/L (46-116)
[2023-08-07 05:08] LABS: Glucose 109 mg/dL (74-106)
[2023-08-07 05:09] LABS: BUN/Creatinine Ratio 27.8 (10.0-20.0)
[2023-08-07 05:11] LABS: Aspartate Aminotransferase 14 U/L (13-40); Bilirubin, Total 0.3 mg/dL (0.2-1.0); Total Protein 7.2 g/dL (5.7-8.2)
[2023-08-07 05:20] LABS: Basophils # (auto) 0 10 ^3/uL (0-0.2); Basophils % (auto) 0.4 % (0.0-2.0); Eosinophils # (auto) 0.1 10 ^3/uL (0-0.8); Eosinophils % (auto) 2.1 % (0.0-7.0); Hematocrit 34.5 % (36.0-46.0); Hemoglobin 11.1 g/dL (12.2-16.2); Lymphocytes # (auto) 2.1 10 ^3/uL (0.4-5.4); Lymphocytes % (auto) 36.8 % (10.0-50.0); Mean Corpuscular Hemoglobin 29.3 pg (28.0-32.0); Mean Corpuscular Hgb Conc. 32.2 g/dL (32.0-36.0); Mean Corpuscular Volume 90.9 fL (80.0-100.0); Monocytes # (auto) 0.7 10 ^3/uL (0-1.3); Monocytes % (auto) 12.6 % (0.0-12.0); Neutrophils # (auto) 2.8 10 ^3/uL (1.6-8.6); Neutrophils % (auto) 48.1 % (37.0-80.0); Nucleated Red Blood Cells % 0.3 %; Red Blood Cells 3.79 10^6/uL (4.0-5.20); Red Cell Distribution Width 16.7 % (11.8-14.3); White Blood Cell 5.8 10^3/uL (4.4-10.8)
[2023-08-07 05:46] LABS: Alanine Aminotransferase 14 U/L (7-40)
[2023-08-07 05:50] LABS: Blood Urea Nitrogen 50 mg/dL (9-23)
[2023-08-07] MEDS: LEVOTHYROXINE SODIUM 25 MCG TAB PO SCH (06:43)
[2023-08-07] MEDS: LEVOTHYROXINE SODIUM 50 MCG TAB PO SCH (06:43)
[2023-08-07] MEDS: LEVOTHYROXINE SODIUM 100 MCG TAB PO SCH (06:43)
[2023-08-07] MEDS: QUEtiapine FUMARATE 100 MG TAB PO SCH (06:44)
[2023-08-07] MEDS: FUROSEMIDE 40 MG TAB PO SCH (06:47)
[2023-08-07 09:49] LABS: Urine Epithelial Cast None Seen /hpf (<5)
[2023-08-07 10:06] LABS: Urine Bacteria FEW /hpf (None Seen); Urine Blood Negative /uL (Negative); Urine Clarity HAZY (Clear); Urine Color Colorless (Yellow); Urine Hyaline Cast FEW /lpf (0 - 2); Urine Mucus FEW (None Seen); Urine Protein, UAD Negative (Negative); Urine Specific Gravity 1.008 (1.001-1.035); Urine Urobilinogen Normal (Negative); Urine WBC 2 /hpf (0 - 5); Urine pH 6.5 (5.0-8.0)
[2023-08-07] MEDS: METOPROLOL TARTRATE 50 MG TAB PO SCH ×2 (10:46→21:12)
[2023-08-07] MEDS: VALPROIC ACID 250 MG/5 ML ORAL SOLN PO SCH (10:46)
[2023-08-07] MEDS: ALLOPURINOL 100 MG TAB PO SCH (10:46)
[2023-08-07] MEDS: CITALOPRAM HYDROBR 20 MG TAB PO SCH (18:00)
[2023-08-07] MEDS: ATORVASTATIN 20 MG TAB PO SCH (21:11)
[2023-08-08] VITALS (12 sets, daily range): BP systolic 111–139; BP diastolic 68–94; PULSE 78–94; RESP 16–22; TEMP 97.3–98.5; O2SAT 92–100
[2023-08-08 06:20] LABS: Basophils # (auto) 0 10 ^3/uL (0-0.2); Basophils % (auto) 0.4 % (0.0-2.0); Eosinophils # (auto) 0.1 10 ^3/uL (0-0.8); Hematocrit 35.1 % (36.0-46.0); Hemoglobin 11.2 g/dL (12.2-16.2); Lymphocytes # (auto) 1.7 10 ^3/uL (0.4-5.4); Lymphocytes % (auto) 33.9 % (10.0-50.0); Mean Corpuscular Hemoglobin 29.6 pg (28.0-32.0); Mean Corpuscular Hgb Conc. 31.9 g/dL (32.0-36.0); Mean Corpuscular Volume 92.8 fL (80.0-100.0); Monocytes # (auto) 0.7 10 ^3/uL (0-1.3); Monocytes % (auto) 12.7 % (0.0-12.0); Neutrophils # (auto) 2.6 10 ^3/uL (1.6-8.6); Nucleated Red Blood Cells % 0.1 %; Red Blood Cells 3.78 10^6/uL (4.0-5.20); Red Cell Distribution Width 16.7 % (11.8-14.3); White Blood Cell 5.1 10^3/uL (4.4-10.8)
[2023-08-08 06:25] LABS: Calcium 9.2 mg/dL (8.7-10.4); Chloride 104 mmol/L (98-107); Potassium 3.8 mmol/L (3.5-5.1); Sodium 140 mmol/L (136-145)
[2023-08-08 06:26] LABS: Anion Gap 7 (5-15); Carbon Dioxide 29 mmol/L (20-30)
[2023-08-08 06:31] LABS: BUN/Creatinine Ratio 19.3 (10.0-20.0); Glucose 95 mg/dL (74-106)
[2023-08-08 06:35] LABS: Blood Urea Nitrogen 27 mg/dL (9-23)
[2023-08-08] MEDS: FUROSEMIDE 40 MG TAB PO SCH (07:00)
[2023-08-08] MEDS: QUEtiapine FUMARATE 100 MG TAB PO SCH (07:00)
[2023-08-08] MEDS: LEVOTHYROXINE SODIUM 50 MCG TAB PO SCH (07:00)
[2023-08-08] MEDS: LEVOTHYROXINE SODIUM 25 MCG TAB PO SCH (07:00)
[2023-08-08] MEDS: LEVOTHYROXINE SODIUM 100 MCG TAB PO SCH (07:01)
[2023-08-08] MEDS: VALPROIC ACID 250 MG/5 ML ORAL SOLN PO SCH (09:06)
[2023-08-08] MEDS: ALLOPURINOL 100 MG TAB PO SCH (09:07)
[2023-08-08] MEDS: METOPROLOL TARTRATE 50 MG TAB PO SCH ×2 (09:08→21:26)
[2023-08-08] MEDS: ACETAMINOPHEN 325 MG TAB PO PRN ×2 (09:08→18:44)
[2023-08-08] MEDS ORDERED: ALLOPURINOL 100 MG TAB PO SCH (10:00)
[2023-08-08] MEDS ORDERED: IPRATROPIUM BROM 0.5 MG/2.5ML INH SOL NEB SCH (18:00)
[2023-08-08] MEDS: IPRATROPIUM BROM 0.5 MG/2.5ML INH SOL NEB SCH (18:08)
[2023-08-08] MEDS: BUDESONIDE (INHALATION) 0.5 MG/2 ML NEB NEB SCH (18:08)
[2023-08-08] MEDS: CITALOPRAM HYDROBR 20 MG TAB PO SCH (18:27)
[2023-08-08] MEDS: ATORVASTATIN 20 MG TAB PO SCH (21:24)
[2023-08-09] VITALS (16 sets, daily range): BP systolic 105–148; BP diastolic 65–85; PULSE 65–109; RESP 14–22; TEMP 98.3–98.6; O2SAT 91–100
[2023-08-09] MEDS: LEVOTHYROXINE SODIUM 25 MCG TAB PO SCH (06:01)
[2023-08-09] MEDS: LEVOTHYROXINE SODIUM 50 MCG TAB PO SCH (06:01)
[2023-08-09] MEDS: FUROSEMIDE 40 MG TAB PO SCH (06:01)
[2023-08-09] MEDS: QUEtiapine FUMARATE 100 MG TAB PO SCH (06:01)
[2023-08-09] MEDS: LEVOTHYROXINE SODIUM 100 MCG TAB PO SCH (06:01)
[2023-08-09] MEDS: IPRATROPIUM BROM 0.5 MG/2.5ML INH SOL NEB SCH ×3 (06:36→18:17)
[2023-08-09] MEDS: BUDESONIDE (INHALATION) 0.5 MG/2 ML NEB NEB SCH ×2 (06:37→18:17)
[2023-08-09] MEDS: ALLOPURINOL 100 MG TAB PO SCH (09:21)
[2023-08-09] MEDS: METOPROLOL TARTRATE 50 MG TAB PO SCH ×2 (09:21→21:52)
[2023-08-09] MEDS: VALPROIC ACID 250 MG/5 ML ORAL SOLN PO SCH (09:21)
[2023-08-09] MEDS ORDERED: IOHEXOL 350 MG/ML 100ML IJ ONE (14:26)
[2023-08-09] MEDS ORDERED: ENOXAPARIN SOD 120 MG/0.8 ML SYRINGE SC ONE (16:30)
[2023-08-09] MEDS: CITALOPRAM HYDROBR 20 MG TAB PO SCH (18:03)
[2023-08-09] MEDS: ATORVASTATIN 20 MG TAB PO SCH (21:52)
[2023-08-09] MEDS: ENOXAPARIN SOD 120 MG/0.8 ML SYRINGE SC SCH (21:56)
[2023-08-10] VITALS (15 sets, daily range): BP systolic 118–142; BP diastolic 52–78; PULSE 59–97; RESP 17–20; TEMP 97.6–98.7; O2SAT 93–99
[2023-08-10] MEDS: LEVOTHYROXINE SODIUM 100 MCG TAB PO SCH (06:08)
[2023-08-10] MEDS: QUEtiapine FUMARATE 100 MG TAB PO SCH (06:08)
[2023-08-10] MEDS: LEVOTHYROXINE SODIUM 50 MCG TAB PO SCH (06:09)
[2023-08-10] MEDS: LEVOTHYROXINE SODIUM 25 MCG TAB PO SCH (06:09)
[2023-08-10] MEDS: FUROSEMIDE 40 MG TAB PO SCH (06:12)
[2023-08-10] MEDS: IPRATROPIUM BROM 0.5 MG/2.5ML INH SOL NEB SCH ×3 (06:41→18:39)
[2023-08-10] MEDS: BUDESONIDE (INHALATION) 0.5 MG/2 ML NEB NEB SCH ×2 (06:41→18:40)
[2023-08-10] MEDS: ENOXAPARIN SOD 120 MG/0.8 ML SYRINGE SC SCH ×2 (09:02→21:54)
[2023-08-10] MEDS: VALPROIC ACID 250 MG/5 ML ORAL SOLN PO SCH (09:02)
[2023-08-10] MEDS: METOPROLOL TARTRATE 50 MG TAB PO SCH ×2 (09:03→22:02)
[2023-08-10] MEDS: ALLOPURINOL 100 MG TAB PO SCH (09:04)
[2023-08-10] MEDS ORDERED: APIX5TAB PO ×3 (15:01→15:03)
[2023-08-10] MEDS: CITALOPRAM HYDROBR 20 MG TAB PO SCH (17:10)
[2023-08-10] MEDS: ACETAMINOPHEN 325 MG TAB PO PRN (20:38)
[2023-08-10] MEDS: ATORVASTATIN 20 MG TAB PO SCH (21:54)
[2023-08-11] VITALS (8 sets, daily range): BP systolic 129–137; BP diastolic 61–70; PULSE 66–92; RESP 16–18; TEMP 97–98.6; O2SAT 94–97
[2023-08-11] MEDS: LEVOTHYROXINE SODIUM 50 MCG TAB PO SCH (06:10)
[2023-08-11] MEDS: LEVOTHYROXINE SODIUM 100 MCG TAB PO SCH (06:11)
[2023-08-11] MEDS: QUEtiapine FUMARATE 100 MG TAB PO SCH (06:11)
[2023-08-11] MEDS: FUROSEMIDE 40 MG TAB PO SCH (06:11)
[2023-08-11] MEDS: LEVOTHYROXINE SODIUM 25 MCG TAB PO SCH (06:11)
[2023-08-11] MEDS: BUDESONIDE (INHALATION) 0.5 MG/2 ML NEB NEB SCH (06:41)
[2023-08-11] MEDS: IPRATROPIUM BROM 0.5 MG/2.5ML INH SOL NEB SCH ×2 (06:41→11:15)
[2023-08-11] MEDS: METOPROLOL TARTRATE 50 MG TAB PO SCH (10:13)
[2023-08-11] MEDS: ALLOPURINOL 100 MG TAB PO SCH (10:13)
[2023-08-11] MEDS: VALPROIC ACID 250 MG/5 ML ORAL SOLN PO SCH (10:13)
[2023-08-11] MEDS: ENOXAPARIN SOD 120 MG/0.8 ML SYRINGE SC SCH (10:14)
[2023-08-11] MEDS: ACETAMINOPHEN 325 MG TAB PO PRN (12:06)
== END 2023-08-11 14:05 | disposition home or self-care (01) | DRG 299 ==
LOC: ER 13:53 → EDBD 13:53 → TELE 17:48 → TELE-CENTR 08-07 22:21
PROVIDERS: ADMIT Nurse Practitioner Family; ATTEND Nurse Practitioner
DX: I82.402 Acute embolism and thrombosis of unspecified deep veins of left lower extremity (principal); I26.99 Other pulmonary embolism without acute cor pulmonale; J96.00 Acute respiratory failure, unspecified whether with hypoxia or hypercapnia; N17.0 Acute kidney failure with tubular necrosis; I24.9 Acute ischemic heart disease, unspecified; J44.1 Chronic obstructive pulmonary disease with (acute) exacerbation; J98.11 Atelectasis; M10.9 Gout, unspecified; E11.22 Type 2 diabetes mellitus with diabetic chronic kidney disease; M19.90 Unspecified osteoarthritis, unspecified site; N18.9 Chronic kidney disease, unspecified; E03.9 Hypothyroidism, unspecified; E78.5 Hyperlipidemia, unspecified; I12.9 Hypertensive chronic kidney disease with stage 1 through stage 4 chronic kidney disease, or unspecified chronic kidney disease; F20.9 Schizophrenia, unspecified; E66.01 Morbid (severe) obesity due to excess calories; Z68.38 Body mass index [BMI] 38.0-38.9, adult; Z98.51 Tubal ligation status; Z79.899 Other long term (current) drug therapy; Z79.01 Long term (current) use of anticoagulants; Z87.891 Personal history of nicotine dependence; Z83.3 Family history of diabetes mellitus; Z82.49 Family history of ischemic heart disease and other diseases of the circulatory system; Z88.6 Allergy status to analgesic agent
CPT/HCPCS: 36415; 70450; 71045; 71275; 80048; 80053; 80164; 81001; 83735; 83880; 84484; 85025; 85379; 85610; 85730; 93005; 93970; 94640; 97110; 97116; 97163; 97530; 99291; G0378

== ENCOUNTER 2023-09-02 09:18 | Inpatient (IN) | payer MEDICARE, MEDICAID ==
[~2023-09-02] VITALS: Ht 165.1 cm; Wt 78.4 kg
[~2023-09-02 09:18] MED LIST changes: +APIX5TAB PO; +LEVO175T4 PO; +MET50T PO; +VALP250S19 PO
[2023-09-02 10:04] LABS: Basophils # (auto) 0 10 ^3/uL (0-0.2); Basophils % (auto) 0.3 % (0.0-2.0); Eosinophils # (auto) 0.1 10 ^3/uL (0-0.8); Eosinophils % (auto) 2.2 % (0.0-7.0); Hematocrit 30.5 % (36.0-46.0); Hemoglobin 9.6 g/dL (12.2-16.2); Lymphocytes # (auto) 1.2 10 ^3/uL (0.4-5.4); Lymphocytes % (auto) 23.8 % (10.0-50.0); Mean Corpuscular Hemoglobin 29.5 pg (28.0-32.0); Mean Corpuscular Hgb Conc. 31.6 g/dL (32.0-36.0); Mean Corpuscular Volume 93.6 fL (80.0-100.0); Monocytes # (auto) 0.6 10 ^3/uL (0-1.3); Monocytes % (auto) 11.7 % (0.0-12.0); Neutrophils # (auto) 3.2 10 ^3/uL (1.6-8.6); Nucleated Red Blood Cells % 0.5 %; Red Blood Cells 3.26 10^6/uL (4.0-5.20); Red Cell Distribution Width 17.3 % (11.8-14.3); White Blood Cell 5.2 10^3/uL (4.4-10.8)
[2023-09-02 10:09] LABS: Albumin 3.8 g/dL (3.2-4.8); Alkaline Phosphatase 86 U/L (46-116); Anion Gap 9 (5-15); Aspartate Aminotransferase 10 U/L (13-40); BUN/Creatinine Ratio 15.7 (10.0-20.0); Blood Urea Nitrogen 14 mg/dL (9-23); Calcium 8.9 mg/dL (8.5-10.1); Carbon Dioxide 29 mmol/L (20-30); Chloride 107 mmol/L (98-107); Glucose 93 mg/dL (74-106); Potassium 3.9 mmol/L (3.5-5.1); Sodium 145 mmol/L (136-145)
[2023-09-02 10:10] LABS: Alanine Aminotransferase < 9 U/L (7-40); Bilirubin, Total 0.3 mg/dL (0.2-1.0); Total Protein 6.6 g/dL (5.7-8.2)
[2023-09-02] MEDS: ALBUTEROL SULF 2.5 MG/0.5ML(0.5%) NEB SOLN NEB ONE (10:26)
[2023-09-02] MEDS: methylPREDNISolone SOD SUCC 125 MG/2 ML VL IV ONE (11:09)
[2023-09-02 11:49] VITALS: RESP 18; O2SAT 95
[2023-09-02] MEDS ORDERED: NITROGLYCERIN 0.4 MG SL TAB SL PRN (12:15)
[2023-09-02] MEDS ORDERED: ONDANSETRON HCL 4 MG/2 ML VIAL IV PRN (13:45)
[2023-09-02] MEDS ORDERED: HYDROcodone-ACET 5/325MG TAB PO PRN (13:45)
[2023-09-02] MEDS ORDERED: METHOTREXATE 2.5 MG TAB PO SCH (13:45)
[2023-09-02] MEDS: DOXYCYCLINE 100MG/250ML 250 ML IV SCH (13:51)
[2023-09-02 14:04] VITALS: BP 126/76; PULSE 100; RESP 18; TEMP 98.2; O2SAT 95
[2023-09-02] MEDS: methylPREDNISolone SOD SUCC 40 MG/ML VL IV SCH (14:31)
[2023-09-02 15:25] VITALS: O2SAT 96
[2023-09-02 15:30] LABS: Urine Bacteria NONE SEEN /hpf (None Seen); Urine Blood Negative /uL (Negative); Urine Clarity Clear (Clear); Urine Color Colorless (Yellow); Urine Protein, UAD Negative (Negative); Urine Specific Gravity 1.011 (1.001-1.035); Urine Urobilinogen Normal (Negative); Urine WBC 1 /hpf (0 - 5); Urine pH 6.5 (5.0-8.0)
[2023-09-02] MEDS: CITALOPRAM HYDROBR 20 MG TAB PO SCH (18:08)
[2023-09-02] MEDS: METOPROLOL TARTRATE 50 MG TAB PO SCH (19:43)
[2023-09-02 19:44] VITALS: PULSE 102; RESP 20; O2SAT 98
[2023-09-02] MEDS: ALBUTEROL SULF 2.5 MG/0.5ML(0.5%) NEB SOLN NEB SCH (19:44)
[2023-09-02] MEDS: IPRATROPIUM BROM 0.5 MG/2.5ML INH SOL NEB SCH (19:44)
[2023-09-02 19:50] VITALS: PULSE 104; RESP 20; O2SAT 99
[2023-09-03] VITALS (10 sets, daily range): BP systolic 139–153; BP diastolic 74–82; PULSE 78–98; RESP 14–20; TEMP 98.3–98.7; O2SAT 90–99
[2023-09-03] MEDS: APIXABAN 5 MG TAB PO SCH (00:20)
[2023-09-03 04:45] LABS: COVID19 ANTIGEN SOFIA FIA NEGATIVE (NEGATIVE); Rapid Influenza A Negative (Negative); Rapid Influenza B Negative (Negative); Respiratory Syncytial Virus Ag Negative
[2023-09-03] MEDS: ACETAMINOPHEN 325 MG TAB PO PRN (05:49)
[2023-09-03 06:05] LABS: Basophils # (auto) 0 10 ^3/uL (0-0.2); Basophils % (auto) 0.1 % (0.0-2.0); Eosinophils # (auto) 0 10 ^3/uL (0-0.8); Eosinophils % (auto) 0.1 % (0.0-7.0); Hematocrit 30.7 % (36.0-46.0); Lymphocytes # (auto) 0.7 10 ^3/uL (0.4-5.4); Lymphocytes % (auto) 11.1 % (10.0-50.0); Mean Corpuscular Hemoglobin 30.1 pg (28.0-32.0); Mean Corpuscular Hgb Conc. 32.4 g/dL (32.0-36.0); Mean Corpuscular Volume 92.9 fL (80.0-100.0); Monocytes # (auto) 0.3 10 ^3/uL (0-1.3); Monocytes % (auto) 4.4 % (0.0-12.0); Neutrophils # (auto) 5.6 10 ^3/uL (1.6-8.6); Neutrophils % (auto) 84.3 % (37.0-80.0); Nucleated Red Blood Cells % 0.4 %; Red Blood Cells 3.31 10^6/uL (4.0-5.20); Red Cell Distribution Width 17.2 % (11.8-14.3); White Blood Cell 6.6 10^3/uL (4.4-10.8)
[2023-09-03 06:15] LABS: Alkaline Phosphatase 83 U/L (46-116); Anion Gap 9 (5-15); BUN/Creatinine Ratio 16.5 (10.0-20.0); Blood Urea Nitrogen 18 mg/dL (9-23); Calcium 9.3 mg/dL (8.5-10.1); Carbon Dioxide 25 mmol/L (20-30); Chloride 104 mmol/L (98-107); Glucose 185 mg/dL (74-106); Potassium 5.1 mmol/L (3.5-5.1); Sodium 138 mmol/L (136-145)
[2023-09-03 06:16] LABS: Aspartate Aminotransferase 13 U/L (13-40); Bilirubin, Total 0.3 mg/dL (0.2-1.0); Total Protein 7.2 g/dL (5.7-8.2)
[2023-09-03 06:26] LABS: Alanine Aminotransferase < 9 U/L (7-40)
[2023-09-03] MEDS: FUROSEMIDE 40 MG TAB PO SCH ×2 (07:08→21:48)
[2023-09-03] MEDS: ALLOPURINOL 100 MG TAB PO SCH (11:38)
[2023-09-03] MEDS: VALPROIC ACID 250 MG/5 ML ORAL SOLN PO SCH (11:38)
[2023-09-03] MEDS ORDERED: LATA0.008 EACHEYE (14:10)
[2023-09-03] MEDS ORDERED: QUET400T13 PO (14:10)
[2023-09-03] MEDS ORDERED: BRIM0.2S17 EACHEYE (14:10)
[2023-09-03] MEDS ORDERED: QUET100T47 PO (14:10)
[2023-09-03] MEDS: PANTOPRAZOLE 40 MG TAB PO ONE (18:27)
[2023-09-04] VITALS (11 sets, daily range): BP systolic 144–155; BP diastolic 56–78; PULSE 66–90; RESP 16–20; TEMP 97.4–98.5; O2SAT 94–98
[2023-09-04] MEDS: PANTOPRAZOLE 40 MG TAB PO SCH (10:11)
[2023-09-05] VITALS (14 sets, daily range): BP systolic 97–149; BP diastolic 63–79; PULSE 69–86; RESP 16–20; TEMP 98–98.9; O2SAT 87–100
[2023-09-06] VITALS (14 sets, daily range): BP systolic 142–167; BP diastolic 63–83; PULSE 69–82; RESP 16–20; TEMP 97.9–99; O2SAT 93–99
[2023-09-06] MEDS ORDERED: DOXY-447 PO (12:44)
[2023-09-06] MEDS ORDERED: PRED20TA2 PO (12:57)
[2023-09-06] MEDS: DOXYCYCLINE 100 MG TAB/CAP PO SCH (21:33)
[2023-09-07] VITALS (9 sets, daily range): BP systolic 136–159; BP diastolic 72–77; PULSE 66–80; RESP 18–20; TEMP 98.2–98.9; O2SAT 93–97
== END 2023-09-07 16:21 | disposition home health service (06) | DRG 189 ==
LOC: ER 09:18 → EDBD 09:18 → TELE 12:09 → TELE-EAST 09-03 17:20
PROVIDERS: ADMIT Nurse Practitioner Family; ATTEND Nurse Practitioner
DX: J96.21 Acute and chronic respiratory failure with hypoxia (principal); J44.1 Chronic obstructive pulmonary disease with (acute) exacerbation; I13.0 Hypertensive heart and chronic kidney disease with heart failure and stage 1 through stage 4 chronic kidney disease, or unspecified chronic kidney disease; Z20.822 Contact with and (suspected) exposure to COVID-19; E03.9 Hypothyroidism, unspecified; J43.9 Emphysema, unspecified; D63.8 Anemia in other chronic diseases classified elsewhere; E78.5 Hyperlipidemia, unspecified; M10.9 Gout, unspecified; F32.A Depression, unspecified; F20.9 Schizophrenia, unspecified; I50.9 Heart failure, unspecified; E66.01 Morbid (severe) obesity due to excess calories; N18.9 Chronic kidney disease, unspecified; Z68.38 Body mass index [BMI] 38.0-38.9, adult; Z85.3 Personal history of malignant neoplasm of breast; Z83.3 Family history of diabetes mellitus; Z82.49 Family history of ischemic heart disease and other diseases of the circulatory system; Z79.899 Other long term (current) drug therapy; Z79.01 Long term (current) use of anticoagulants; Z99.81 Dependence on supplemental oxygen; Z98.51 Tubal ligation status; Z87.891 Personal history of nicotine dependence; Z80.9 Family history of malignant neoplasm, unspecified; Z81.1 Family history of alcohol abuse and dependence; Z86.718 Personal history of other venous thrombosis and embolism
CPT/HCPCS: 36415; 71045; 80053; 81001; 83880; 84484; 85025; 85379; 87426; 87804; 87807; 93005; 93971; 94640; 96365; 96375; 97110; 97116; 97163; 97530; 99291; G0378; J3490

== ENCOUNTER 2023-12-18 15:27 | Inpatient (IN) | payer MEDICARE, MEDICAID ==
[~2023-12-18] VITALS: Ht 157.5 cm; Wt 121.0 kg
[~2023-12-18 15:27] MED LIST changes: +BRIM0.2S17 EACHEYE; +DOXY-447 PO; +LATA0.008 EACHEYE; -LEVO175T4 PO; -MET50T PO; -METH2.5T PO; +PRED20TA2 PO; +QUET100T47 PO; +QUET400T13 PO; -QUET50TA PO
[2023-12-18 17:00] VITALS: PULSE 93; RESP 18; O2SAT 96
[2023-12-18] MEDS: FUROSEMIDE 20 MG/2 ML VIAL IV ONE (17:29)
[2023-12-18] MEDS: NITROGLYCERIN 0.2MG/HR TOPICAL PATCH TD ONE (17:29)
[2023-12-18 17:49] LABS: Basophils # (auto) 0 10 ^3/uL (0-0.2); Basophils % (auto) 0.6 % (0.0-2.0); Eosinophils # (auto) 0.1 10 ^3/uL (0-0.8); Eosinophils % (auto) 1.9 % (0.0-7.0); Hematocrit 32.3 % (36.0-46.0); Hemoglobin 10.5 g/dL (12.2-16.2); Lymphocytes # (auto) 1.6 10 ^3/uL (0.4-5.4); Lymphocytes % (auto) 22.6 % (10.0-50.0); Mean Corpuscular Hemoglobin 30.5 pg (28.0-32.0); Mean Corpuscular Hgb Conc. 32.6 g/dL (32.0-36.0); Mean Corpuscular Volume 93.3 fL (80.0-100.0); Monocytes # (auto) 0.6 10 ^3/uL (0-1.3); Monocytes % (auto) 8.9 % (0.0-12.0); Neutrophils # (auto) 4.5 10 ^3/uL (1.6-8.6); Nucleated Red Blood Cells % 0.3 %; Red Blood Cells 3.46 10^6/uL (4.0-5.20); Red Cell Distribution Width 15.8 % (11.8-14.3); White Blood Cell 6.9 10^3/uL (4.4-10.8)
[2023-12-18 18:02] LABS: INR 1.12 (0.9-1.15); Partial Thromboplastin Time 27.6 SEC (24.5-34.5); Prothrombin Time 11.8 sec (9.3-11.8)
[2023-12-18 18:07] LABS: Alanine Aminotransferase 10 U/L (7-40); Albumin 3.8 g/dL (3.2-4.8); Alkaline Phosphatase 87 U/L (46-116); Anion Gap 6 (5-15); Aspartate Aminotransferase 13 U/L (13-40); BUN/Creatinine Ratio 16.7 (10.0-20.0); Bilirubin, Total 0.2 mg/dL (0.2-1.0); Blood Urea Nitrogen 16 mg/dL (9-23); Calcium 9.1 mg/dL (8.5-10.1); Carbon Dioxide 34 mmol/L (20-30); Chloride 105 mmol/L (98-107); Glucose 88 mg/dL (74-106); Magnesium 1.4 mg/dL (1.6-2.6); Potassium 3.3 mmol/L (3.5-5.1); Sodium 145 mmol/L (136-145)
[2023-12-18 18:08] LABS: Total Protein 6.5 g/dL (5.7-8.2)
[2023-12-18 19:32] LABS: Urine Bacteria FEW /hpf (None Seen); Urine Blood Negative /uL (Negative); Urine Clarity Clear (Clear); Urine Color Colorless (Yellow); Urine Protein, UAD Negative (Negative); Urine Specific Gravity 1.008 (1.001-1.035); Urine Urobilinogen Normal (Negative); Urine WBC 31 /hpf (0 - 5)
[2023-12-18] MEDS: MAGNESIUM SULFATE 1GM/100ML 100 ML IV ONE (20:00)
[2023-12-18] MEDS: AZITHROMYCIN 500MG/ 250ML 250 ML IV ONE (20:23)
[2023-12-18] MEDS: HYDROCORTISONE SOD SUCC 100 MG/2ML INJ VIAL IV ONE (20:23)
[2023-12-18] MEDS: POTASSIUM EFFERVESENT TAB 25 MEQ GT ONE (20:23)
[2023-12-18 20:30] VITALS: PULSE 94; RESP 20; O2SAT 94
[2023-12-18] MEDS ORDERED: NITROGLYCERIN 0.4 MG SL TAB SL PRN (22:15)
[2023-12-18] MEDS ORDERED: MORPHINE SULFATE INJ 2 MG/ml SYRG IV PRN (22:15)
[2023-12-19] VITALS (14 sets, daily range): BP systolic 107–128; BP diastolic 50–74; PULSE 75–96; RESP 14–20; TEMP 98.4–98.6; O2SAT 92–100
[2023-12-19] MEDS: IPRATROPIUM BROM 0.5 MG/2.5ML INH SOL NEB SCH
[2023-12-19] MEDS: ALBUTEROL SULF 2.5 MG/0.5ML(0.5%) NEB SOLN NEB SCH
[2023-12-19 05:21] LABS: Basophils # (auto) 0 10 ^3/uL (0-0.2); Basophils % (auto) 0.4 % (0.0-2.0); Eosinophils # (auto) 0 10 ^3/uL (0-0.8); Eosinophils % (auto) 0.1 % (0.0-7.0); Hematocrit 30.6 % (36.0-46.0); Lymphocytes # (auto) 0.9 10 ^3/uL (0.4-5.4); Lymphocytes % (auto) 14.5 % (10.0-50.0); Mean Corpuscular Hemoglobin 30.6 pg (28.0-32.0); Mean Corpuscular Hgb Conc. 32.8 g/dL (32.0-36.0); Mean Corpuscular Volume 93.2 fL (80.0-100.0); Monocytes # (auto) 0.3 10 ^3/uL (0-1.3); Monocytes % (auto) 4.4 % (0.0-12.0); Neutrophils # (auto) 4.9 10 ^3/uL (1.6-8.6); Neutrophils % (auto) 80.6 % (37.0-80.0); Nucleated Red Blood Cells % 0.2 %; Red Blood Cells 3.28 10^6/uL (4.0-5.20); White Blood Cell 6.1 10^3/uL (4.4-10.8)
[2023-12-19 05:36] LABS: Alkaline Phosphatase 90 U/L (46-116); Anion Gap 7 (5-15); Aspartate Aminotransferase 9 U/L (13-40); BUN/Creatinine Ratio 12.9 (10.0-20.0); Bilirubin, Total 0.3 mg/dL (0.2-1.0); Blood Urea Nitrogen 13 mg/dL (9-23); Calcium 9.1 mg/dL (8.5-10.1); Carbon Dioxide 34 mmol/L (20-30); Chloride 102 mmol/L (98-107); Glucose 142 mg/dL (74-106); Potassium 3.4 mmol/L (3.5-5.1); Sodium 143 mmol/L (136-145)
[2023-12-19 05:39] LABS: Alanine Aminotransferase < 9 U/L (7-40)
[2023-12-19] MEDS: QUEtiapine FUMARATE 100 MG TAB PO SCH (06:25)
[2023-12-19] MEDS: ONDANSETRON HCL 4 MG/2 ML VIAL IV PRN (06:25)
[2023-12-19] MEDS: FUROSEMIDE 20 MG/2 ML VIAL IV SCH (06:25)
[2023-12-19] MEDS: HYDROcodone-ACET 5/325MG TAB PO ONE (06:54)
[2023-12-19] MEDS: LEVOTHYROXINE SODIUM 100 MCG TAB PO SCH (07:51)
[2023-12-19] MEDS: ALLOPURINOL 100 MG TAB PO SCH (09:45)
[2023-12-19] MEDS: APIXABAN 5 MG TAB PO SCH (09:45)
[2023-12-19] MEDS: SODIUM BICARBONATE 650 MG TAB PO SCH (09:47)
[2023-12-19] MEDS: METOPROLOL TARTRATE 50 MG TAB PO SCH (09:47)
[2023-12-19] MEDS: levoFLOXacin 750MG 150 ML IV SCH (10:00)
[2023-12-19] MEDS: CITALOPRAM HYDROBR 20 MG TAB PO SCH (18:14)
[2023-12-19] MEDS: HYDROcodone-ACET 5/325MG TAB PO PRN (18:15)
[2023-12-19] MEDS: ATORVASTATIN 20 MG TAB PO SCH (21:31)
[2023-12-20] VITALS (15 sets, daily range): BP systolic 95–132; BP diastolic 50–67; PULSE 63–85; RESP 16–20; TEMP 97.7–99.1; O2SAT 92–100
[2023-12-20 05:23] LABS: Chloride 101 mmol/L (98-107); Potassium 3.7 mmol/L (3.5-5.1); Sodium 142 mmol/L (136-145)
[2023-12-20 05:24] LABS: Anion Gap 4 (5-15); Carbon Dioxide 37 mmol/L (20-30)
[2023-12-20 05:29] LABS: Glucose 99 mg/dL (74-106)
[2023-12-20 05:30] LABS: Blood Urea Nitrogen 17 mg/dL (9-23); Magnesium 1.5 mg/dL (1.6-2.6)
[2023-12-20] MEDS: MAGNESIUM OXIDE 400 MG TAB PO SCH (11:33)
[2023-12-20] MEDS: DOCUSATE SOD 100 MG CAP PO PRN (20:48)
[2023-12-21] VITALS (19 sets, daily range): BP systolic 88–149; BP diastolic 48–67; PULSE 68–78; RESP 14–22; TEMP 97.9–98.4; O2SAT 90–100
[2023-12-21 07:10] LABS: Chloride 97 mmol/L (98-107); Potassium 3.9 mmol/L (3.5-5.1); Sodium 140 mmol/L (136-145)
[2023-12-21 07:11] LABS: Calcium 9.4 mg/dL (8.5-10.1)
[2023-12-21 07:16] LABS: BUN/Creatinine Ratio 17.9 (10.0-20.0); Blood Urea Nitrogen 22 mg/dL (9-23); Glucose 100 mg/dL (74-106)
[2023-12-21 07:17] LABS: Magnesium 1.7 mg/dL (1.6-2.6)
[2023-12-21 07:28] LABS: Anion Gap 2.99999 (5-15)
[2023-12-21 07:32] LABS: Carbon Dioxide > 40 mmol/L (20-30)
[2023-12-22] VITALS (11 sets, daily range): BP systolic 99–110; BP diastolic 45–58; PULSE 66–85; RESP 16–20; TEMP 36.8; O2SAT 94–100
[2023-12-22] MEDS: ACETAMINOPHEN 325 MG TAB PO PRN (00:32)
[2023-12-22 06:23] LABS: Chloride 96 mmol/L (98-107); Potassium 3.9 mmol/L (3.5-5.1); Sodium 140 mmol/L (136-145)
[2023-12-22 06:24] LABS: Anion Gap 8 (5-15); Calcium 9.5 mg/dL (8.7-10.4); Carbon Dioxide 36 mmol/L (20-30)
[2023-12-22 06:29] LABS: BUN/Creatinine Ratio 18.8 (10.0-20.0); Blood Urea Nitrogen 25 mg/dL (9-23); Glucose 101 mg/dL (74-106)
[2023-12-22 06:30] LABS: Magnesium 1.9 mg/dL (1.6-2.6)
[2023-12-22] MEDS ORDERED: LEVO500T91 PO (11:02)
== END 2023-12-22 14:50 | disposition home health service (06) | DRG 177 ==
LOC: ER 15:27 → EDBD 15:27 → EDUNIT# 15:27 → TELE 22:22 → TELE-WESTW 12-19 15:39 → WEST WING 12-21 00:43
PROVIDERS: ADMIT Internal Medicine; ATTEND Internal Medicine
DX: J15.69 Pneumonia due to other Gram-negative bacteria (principal); I50.31 Acute diastolic (congestive) heart failure; J96.21 Acute and chronic respiratory failure with hypoxia; J44.1 Chronic obstructive pulmonary disease with (acute) exacerbation; N30.00 Acute cystitis without hematuria; Z68.42 Body mass index [BMI] 45.0-49.9, adult; J44.0 Chronic obstructive pulmonary disease with (acute) lower respiratory infection; J15.9 Unspecified bacterial pneumonia; J20.9 Acute bronchitis, unspecified; I11.0 Hypertensive heart disease with heart failure; D63.8 Anemia in other chronic diseases classified elsewhere; E03.9 Hypothyroidism, unspecified; E78.5 Hyperlipidemia, unspecified; E66.01 Morbid (severe) obesity due to excess calories; M10.9 Gout, unspecified; F20.9 Schizophrenia, unspecified; J98.4 Other disorders of lung; Z85.3 Personal history of malignant neoplasm of breast; Z79.01 Long term (current) use of anticoagulants; Z83.3 Family history of diabetes mellitus; Z86.718 Personal history of other venous thrombosis and embolism; Z87.891 Personal history of nicotine dependence
CPT/HCPCS: 36415; 71045; 80048; 80053; 81001; 83735; 83880; 84484; 85025; 85379; 85610; 85730; 87081; 87086; 87088; 87186; 93005; 93971; 94640; 96365; 96367; 96375; 97110; 97116; 97163; 97530; G0378; J1956; J2405

== ENCOUNTER → 2024-01-02 | Outpatient (CLI) | payer MEDICARE, MEDICAID ==
[~2024-01-02] MED LIST changes: -DOXY-447 PO; -HYDR25TA4 PO; +LEVO500T91 PO; -LORA-1121 PO; -METO-159 PO; -PRED20TA2 PO; -QUET100T47 PO; -QUET400T13 PO; -SODI10PA PO; -VALP250S19 PO
== END | disposition home or self-care (01) ==
LOC: Rad HDHVI 14:13
PROVIDERS: ATTEND Internal Medicine Cardiovascular Disease
DX: M71.21 Synovial cyst of popliteal space [Baker], right knee (principal); R60.9 Edema, unspecified; Z86.718 Personal history of other venous thrombosis and embolism
CPT/HCPCS: 93970

== ENCOUNTER 2024-02-06 13:32 | Inpatient (IN) | payer MEDICARE, MEDICAID ==
[2024-02-04 18:44] VITALS: PULSE 102; RESP 20; O2SAT 93
[2024-02-06] VITALS (7 sets, daily range): BP systolic 140; BP diastolic 67; PULSE 100–107; RESP 18–20; O2SAT 95–97
[~2024-02-06] VITALS: Ht 170.2 cm; Wt 123.0 kg
[~2024-02-06 13:32] MED LIST changes: +FURO40TA4 PO; +KETO10TA PO
[2024-02-06 15:14] LABS: Hematocrit 31.8 % (36.0-46.0); Hemoglobin 10.3 g/dL (12.2-16.2); Mean Corpuscular Hemoglobin 30.2 pg (28.0-32.0); Mean Corpuscular Hgb Conc. 32.4 g/dL (32.0-36.0); Mean Corpuscular Volume 93.1 fL (80.0-100.0); Red Blood Cells 3.41 10^6/uL (4.0-5.20); Red Cell Distribution Width 16.5 % (11.8-14.3); White Blood Cell 5.8 10^3/uL (4.4-10.8)
[2024-02-06 15:23] LABS: Alanine Aminotransferase 18 U/L (7-40); Albumin 4.1 g/dL (3.2-4.8); Alkaline Phosphatase 71 U/L (46-116); Anion Gap 6 (5-15); Aspartate Aminotransferase 13 U/L (13-40); BUN/Creatinine Ratio 28.8 (10.0-20.0); Blood Urea Nitrogen 44 mg/dL (9-23); Calcium 9.4 mg/dL (8.7-10.4); Carbon Dioxide 21 mmol/L (20-30); Chloride 112 mmol/L (98-107); Glucose 174 mg/dL (74-106); Magnesium 1.5 mg/dL (1.6-2.6); Sodium 139 mmol/L (136-145)
[2024-02-06 15:24] LABS: Bilirubin, Total 0.2 mg/dL (0.2-1.0); Total Protein 6.7 g/dL (5.7-8.2)
[2024-02-06 15:27] LABS: INR 1.07 (0.9-1.15); Partial Thromboplastin Time 23.7 SEC (24.5-34.5); Prothrombin Time 11.3 sec (9.3-11.8)
[2024-02-06 15:33] LABS: Basophils % (manual) 0 (0.0-2.0); Blast Cells 0; Metamyelocytes % 0; Myelocytes % 0; Promyelocytes % 0; Reactive Lymphocytes 0
[2024-02-06] MEDS ORDERED: InsuLIN REG 1unit/0.01ml Soln (100units/ml) IV ONE (16:00)
[2024-02-06] MEDS ORDERED: DEXTROSE (50%) 50ML SYRG IV ONE (16:00)
[2024-02-06] MEDS ORDERED: CALCIUM GLUC 1,000mg/50ml-NS 50 ML IV ONE (16:00)
[2024-02-06] MEDS ORDERED: MAGNESIUM SULFATE 1GM/100ML 100 ML IV ONE (16:00)
[2024-02-06 16:10] LABS: Band Neutrophils % (manual) 2; Eosinophils % (manual) 1 (0-7); Lymphocytes % (manual) 21 (10.0-50.0); Monocytes % (manual) 6 (0-12); Platelet Estimate Adequate
[2024-02-06] MEDS: IPRATROPIUM BROM 0.5 MG/2.5ML INH SOL NEB ONE (16:16)
[2024-02-06] MEDS: ALBUTEROL SULF 2.5 MG/0.5ML(0.5%) NEB SOLN NEB ONE ×2 (16:16→19:28)
[2024-02-06] MEDS ORDERED: ERGOCALCIFEROL 50,000 UNIT(1.25MG) CAP PO SCH (16:45)
[2024-02-06] MEDS ORDERED: ALBUTEROL SULF 2.5 MG/0.5ML(0.5%) NEB SOLN NEB PRN (16:45)
[2024-02-06] MEDS ORDERED: NITROGLYCERIN 0.4 MG SL TAB SL PRN (16:45)
[2024-02-06] MEDS ORDERED: MORPHINE SULFATE INJ 2 MG/ml SYRG IV PRN (16:45)
[2024-02-06 17:50] LABS: Triglycerides 137 mg/dL (< 150)
[2024-02-06 17:51] LABS: LDL Cholesterol 97 mg/dL (< 100)
[2024-02-06 17:52] LABS: Cholesterol 205 mg/dL (< 200); HDL Cholesterol 89 mg/dL (40-59)
[2024-02-06 18:41] LABS: Urine Bacteria None Seen /hpf (None Seen)
[2024-02-06] MEDS: SODIUM ZIRCONIUM CYCL 10 GM PAK PO ONE ×2 (18:43→18:45)
[2024-02-06] MEDS: CITALOPRAM HYDROBR 20 MG TAB PO SCH (18:43)
[2024-02-06] MEDS: ALBUTEROL SULF 2.5 MG/0.5ML(0.5%) NEB SOLN NEB SCH (18:44)
[2024-02-06] MEDS: IPRATROPIUM BROM 0.5 MG/2.5ML INH SOL NEB SCH (18:44)
[2024-02-06 19:13] LABS: Urine Blood Negative /uL (Negative); Urine Clarity Clear (Clear); Urine Color Light-Yellow (Yellow); Urine Protein, UAD Negative (Negative); Urine Specific Gravity 1.014 (1.001-1.035); Urine Urobilinogen Normal (Negative); Urine WBC 2 /hpf (0 - 5); Urine pH 6.5 (5.0-9.0)
[2024-02-06 19:48] LABS: Free T3 0.46 pg/mL (2.3-4.2); Free T4 (Free Thyroxine) 0.11 ng/dL (0.89-1.76)
[2024-02-06] MEDS: methylPREDNISolone SOD SUCC 125 MG/2 ML VL IV ONE (20:28)
[2024-02-06] MEDS: InsuLIN REG 1unit/0.01ml Soln (100units/ml) IV ONE (20:28)
[2024-02-06] MEDS: DEXTROSE (50%) 50ML SYRG IV ONE (20:29)
[2024-02-06] MEDS: MAGNESIUM SULFATE 1GM/100ML 100 ML IV SCH (20:29)
[2024-02-06] MEDS: CALCIUM GLUC 1,000mg/50ml-NS 50 ML IV ONE (20:29)
[2024-02-06] MEDS: BUMETANIDE 2.5mg/10ml (0.25 mg/ml) INJ IV ONE (20:32)
[2024-02-06] MEDS: APIXABAN 5 MG TAB PO SCH (20:33)
[2024-02-06] MEDS: SODIUM ZIRCONIUM CYCL 10 GM PAK PO SCH (22:00)
[2024-02-06] MEDS: LATANOPROST 0.005 % OPTH(EYE) SOL 2.5ML EACHEYE SCH (22:00)
[2024-02-06] MEDS: VALPROIC ACID 250 MG/5 ML ORAL SOLN PO SCH (22:00)
[2024-02-06] MEDS: methylPREDNISolone SOD SUCC 40 MG/ML VL IV SCH (22:29)
[2024-02-06] MEDS: SODIUM BICARB 8.4% 50Meq/50ml SYR INJ IV ONE (22:30)
[2024-02-07] VITALS (18 sets, daily range): BP systolic 125–151; BP diastolic 68–87; PULSE 82–105; RESP 17–20; TEMP 97.7–98.8; O2SAT 94–100
[2024-02-07] MEDS: ACETAMINOPHEN 325 MG TAB PO PRN (02:15)
[2024-02-07] MEDS ORDERED: DIVA-91 PO (03:53)
[2024-02-07] MEDS ORDERED: QUET100T38 PO (03:53)
[2024-02-07] MEDS: LEVOTHYROXINE SODIUM 100 MCG TAB PO SCH (06:17)
[2024-02-07 06:56] LABS: Alanine Aminotransferase 14 U/L (7-40); Albumin 4.1 g/dL (3.2-4.8); Alkaline Phosphatase 77 U/L (46-116); Anion Gap 8 (5-15); Aspartate Aminotransferase < 8 U/L (13-40); BUN/Creatinine Ratio 19.9 (10.0-20.0); Calcium 9.6 mg/dL (8.7-10.4); Carbon Dioxide 26 mmol/L (20-30); Chloride 105 mmol/L (98-107); Glucose 230 mg/dL (74-106); Sodium 139 mmol/L (136-145)
[2024-02-07 06:57] LABS: Bilirubin, Total 0.3 mg/dL (0.2-1.0); Blood Urea Nitrogen 34 mg/dL (9-23); Total Protein 7.2 g/dL (5.7-8.2)
[2024-02-07 07:05] LABS: Hemoglobin 10.3 g/dL (12.2-16.2); Mean Corpuscular Hemoglobin 30.2 pg (28.0-32.0); Mean Corpuscular Hgb Conc. 33.2 g/dL (32.0-36.0); Red Cell Distribution Width 16.6 % (11.8-14.3); White Blood Cell 7.3 10^3/uL (4.4-10.8)
[2024-02-07 07:09] LABS: Basophils % (manual) 0 (0.0-2.0); Blast Cells 0; Eosinophils % (manual) 0 (0-7); Metamyelocytes % 0; Myelocytes % 0; Promyelocytes % 0; Reactive Lymphocytes 0
[2024-02-07 07:48] LABS: Band Neutrophils % (manual) 1; Lymphocytes % (manual) 9 (10.0-50.0); Monocytes % (manual) 2 (0-12); Platelet Estimate Adequate
[2024-02-07] MEDS: SODIUM BICARBONATE 650 MG TAB PO SCH (09:08)
[2024-02-07 11:19] LABS: Chloride 107 mmol/L (98-107); Sodium 137 mmol/L (136-145)
[2024-02-07 11:20] LABS: Anion Gap 6 (5-15); Carbon Dioxide 24 mmol/L (20-30)
[2024-02-07 11:21] LABS: Calcium 9.5 mg/dL (8.7-10.4)
[2024-02-07 11:25] LABS: BUN/Creatinine Ratio 22.9 (10.0-20.0); Blood Urea Nitrogen 38 mg/dL (9-23); Glucose 214 mg/dL (74-106)
[2024-02-07 11:50] LABS: Potassium 6.2 mmol/L (3.5-5.1)
[2024-02-07] MEDS ORDERED: NITROGLYCERIN 0.4 MG SL TAB SL PRN (12:30)
[2024-02-07] MEDS: SODIUM BICARB 8.4% 50Meq/50ml SYR Vial IV ONE (12:42)
[2024-02-07] MEDS: FUROSEMIDE 40 MG/4 ML VIAL IV ONE (12:43)
[2024-02-07] MEDS: BUMETANIDE 2.5mg/10ml (0.25 mg/ml) INJ IV ONE (12:43)
[2024-02-07] MEDS: SODIUM CHLORIDE 0.9% 1,000 ML IV ONE (12:45)
[2024-02-07] MEDS: CALCIUM GLUC 1,000mg/50ml-NS 50 ML IV ONE (13:25)
[2024-02-07] MEDS ORDERED: NETA1DRO EACHEYE (14:11)
[2024-02-07] MEDS ORDERED: HYDR200T36 PO (14:11)
[2024-02-07] MEDS ORDERED: ALBU108A5 INH (14:11)
[2024-02-07] MEDS ORDERED: IPRAAER6 INH (14:11)
[2024-02-07] MEDS ORDERED: LISI-275 PO (14:11)
[2024-02-07] MEDS ORDERED: ASPI81CH59 PO (14:11)
[2024-02-07] MEDS ORDERED: AMLO1TAB23 PO (14:11)
[2024-02-07] MEDS ORDERED: PANT40TA2 PO (14:11)
[2024-02-07] MEDS ORDERED: BACL10TA PO (14:11)
[2024-02-07] MEDS ORDERED: QUET400T13 PO (14:11)
[2024-02-07] MEDS ORDERED: BUDE1AER16 INH (14:11)
[2024-02-07 18:57] LABS: Chloride 101 mmol/L (98-107); Sodium 139 mmol/L (136-145)
[2024-02-07 18:58] LABS: Anion Gap 12 (5-15); Calcium 9.9 mg/dL (8.7-10.4); Carbon Dioxide 26 mmol/L (20-30)
[2024-02-07 19:03] LABS: Blood Urea Nitrogen 42 mg/dL (9-23); Glucose 140 mg/dL (74-106)
[2024-02-07 19:32] LABS: Potassium 5.6 mmol/L (3.5-5.1)
[2024-02-07] MEDS: ATORVASTATIN 20 MG TAB PO SCH (21:24)
[2024-02-07] MEDS ORDERED: APIXABAN 5 MG TAB PO SCH (22:00)
[2024-02-08] VITALS (20 sets, daily range): BP systolic 120–141; BP diastolic 80–99; PULSE 81–110; RESP 16–18; TEMP 97.8–99; O2SAT 91–100
[2024-02-08 07:17] LABS: Anion Gap 6 (5-15); Carbon Dioxide 26 mmol/L (20-30); Chloride 105 mmol/L (98-107); Sodium 137 mmol/L (136-145)
[2024-02-08 07:18] LABS: Calcium 8.9 mg/dL (8.7-10.4)
[2024-02-08 07:23] LABS: BUN/Creatinine Ratio 23.4 (10.0-20.0); Blood Urea Nitrogen 34 mg/dL (9-23); Glucose 116 mg/dL (74-106)
[2024-02-08 07:39] LABS: Potassium 5.7 mmol/L (3.5-5.1)
[2024-02-08] MEDS: methylPREDNISolone SOD SUCC 40 MG/ML VL IV SCH (09:35)
[2024-02-08] MEDS: FUROSEMIDE 40 MG TAB PO SCH ×2 (09:36→18:28)
[2024-02-08] MEDS: ENOXAPARIN SOD 40 MG/0.4 ML SYRINGE SC SCH (09:38)
[2024-02-08] MEDS ORDERED: LEVOTHYROXINE SODIUM 100 MCG/5 ML INJ IV SCH (10:00)
[2024-02-08] MEDS: ALLOPURINOL 100 MG TAB PO ONE (13:59)
[2024-02-08] MEDS: LEVOTHYROXINE SODIUM 100 MCG TAB PO ONE (14:00)
[2024-02-09] VITALS (21 sets, daily range): BP systolic 117–159; BP diastolic 76–102; PULSE 85–105; RESP 16–20; TEMP 97.1–99.1; O2SAT 87–100
[2024-02-09] MEDS: LEVOTHYROXINE SODIUM 100 MCG TAB PO SCH (05:18)
[2024-02-09 10:14] LABS: Chloride 99 mmol/L (98-107); Sodium 137 mmol/L (136-145)
[2024-02-09 10:15] LABS: Anion Gap 9 (5-15); Carbon Dioxide 29 mmol/L (20-30)
[2024-02-09 10:16] LABS: Calcium 9.1 mg/dL (8.7-10.4)
[2024-02-09 10:20] LABS: BUN/Creatinine Ratio 24.2 (10.0-20.0); Blood Urea Nitrogen 38 mg/dL (9-23); Glucose 138 mg/dL (74-106)
[2024-02-09] MEDS: SODIUM ZIRCONIUM CYCL 10 GM PAK PO SCH (11:04)
[2024-02-09] MEDS: ALLOPURINOL 100 MG TAB PO SCH (11:05)
[2024-02-10] VITALS (13 sets, daily range): BP systolic 113–138; BP diastolic 72–79; PULSE 85–101; RESP 14–20; TEMP 98.4–98.7; O2SAT 91–100
[2024-02-10 07:29] LABS: Chloride 97 mmol/L (98-107); Potassium 3.9 mmol/L (3.5-5.1); Sodium 135 mmol/L (136-145)
[2024-02-10 07:30] LABS: Anion Gap 9 (5-15); Calcium 9.3 mg/dL (8.7-10.4); Carbon Dioxide 29 mmol/L (20-30)
[2024-02-10 07:35] LABS: BUN/Creatinine Ratio 32.1 (10.0-20.0); Blood Urea Nitrogen 51 mg/dL (9-23); Glucose 100 mg/dL (74-106); Magnesium 1.4 mg/dL (1.6-2.6)
[2024-02-10] MEDS: MAGNESIUM OXIDE 400 MG TAB PO ONE (10:30)
== END 2024-02-10 15:00 | disposition home health service (06) | DRG 291 ==
LOC: EDUNIT# 13:32 → EDBD 13:32 → ER 13:32 → TELE 16:35 → TELE-EAST 23:57
PROVIDERS: ADMIT Nurse Practitioner Family; ATTEND Internal Medicine
PROC: 05HA33Z Insertion of Infusion Device into Left Brachial Vein, Percutaneous Approach (ICD-10-PCS; principal; 2024-02-06)
PROC: B54NZZA Ultrasonography of Left Upper Extremity Veins, Guidance (ICD-10-PCS; 2024-02-06)
DX: I13.0 Hypertensive heart and chronic kidney disease with heart failure and stage 1 through stage 4 chronic kidney disease, or unspecified chronic kidney disease (principal); I50.33 Acute on chronic diastolic (congestive) heart failure; J96.20 Acute and chronic respiratory failure, unspecified whether with hypoxia or hypercapnia; N17.0 Acute kidney failure with tubular necrosis; Z68.41 Body mass index [BMI] 40.0-44.9, adult; E87.5 Hyperkalemia; E83.42 Hypomagnesemia; E66.01 Morbid (severe) obesity due to excess calories; E03.9 Hypothyroidism, unspecified; M10.9 Gout, unspecified; F31.9 Bipolar disorder, unspecified; E11.22 Type 2 diabetes mellitus with diabetic chronic kidney disease; N18.32 Chronic kidney disease, stage 3b; J43.9 Emphysema, unspecified; I27.20 Pulmonary hypertension, unspecified; Z86.718 Personal history of other venous thrombosis and embolism; Z79.01 Long term (current) use of anticoagulants; Z88.1 Allergy status to other antibiotic agents; Z79.899 Other long term (current) drug therapy; Z85.3 Personal history of malignant neoplasm of breast; Z83.3 Family history of diabetes mellitus; Z82.49 Family history of ischemic heart disease and other diseases of the circulatory system; Z91.148 Patient's other noncompliance with medication regimen for other reason
CPT/HCPCS: 36415; 71045; 80048; 80053; 80061; 81001; 82962; 83036; 83735; 83880; 83930; 84132; 84133; 84439; 84443; 84481; 84484; 85007; 85027; 85379; 85610; 85730; 87081; 93005; 93306; 94640; 96374; 97163; 99291; G0378; J1815

== ENCOUNTER 2024-03-19 12:07 | Inpatient (IN) | payer MEDICARE, MEDICAID ==
[~2024-03-19] VITALS: Ht 170.2 cm; Wt 122.1 kg
[~2024-03-19 12:07] MED LIST changes: +ALBU108A5 INH; +AMLO1TAB23 PO; -APIX5TAB PO; +ASPI81CH59 PO; +BACL10TA PO; +BUDE1AER16 INH; +DIVA-91 PO; -FURO1TAB31 PO; +HYDR200T36 PO; +IPRAAER6 INH; -KETO10TA PO; -LEVO500T91 PO; +LISI-275 PO; +NETA1DRO EACHEYE; +PANT40TA2 PO; +QUET100T38 PO
[2024-03-19 16:16] LABS: Hemoglobin 10.4 g/dL (12.2-16.2); Mean Corpuscular Hemoglobin 30.9 pg (28.0-32.0); Mean Corpuscular Hgb Conc. 32.5 g/dL (32.0-36.0); Mean Corpuscular Volume 94.9 fL (80.0-100.0); Platelet Count (auto) 203 10^3/uL (140-450); Red Blood Cells 3.37 10^6/uL (4.0-5.20); Red Cell Distribution Width 17.8 % (11.8-14.3); White Blood Cell 5.5 10^3/uL (4.4-10.8)
[2024-03-19 16:17] LABS: Band Neutrophils % (manual) 0; Basophils % (manual) 0 (0.0-2.0); Blast Cells 0; Metamyelocytes % 0; Myelocytes % 0; Promyelocytes % 0; Reactive Lymphocytes 0
[2024-03-19 16:21] LABS: Alanine Aminotransferase 14 U/L (7-40); Albumin 4.4 g/dL (3.2-4.8); Alkaline Phosphatase 93 U/L (46-116); Anion Gap 9 (5-15); Aspartate Aminotransferase 9 U/L (13-40); BUN/Creatinine Ratio 17.3 (10.0-20.0); Bilirubin, Total 0.3 mg/dL (0.2-1.0); Blood Urea Nitrogen 22 mg/dL (9-23); Calcium 10.2 mg/dL (8.7-10.4); Carbon Dioxide 34 mmol/L (20-30); Chloride 101 mmol/L (98-107); Glucose 92 mg/dL (74-106); Potassium 3.6 mmol/L (3.5-5.1); Sodium 144 mmol/L (136-145); Total Protein 7.8 g/dL (5.7-8.2)
[2024-03-19 17:10] LABS: Anisocytosis Slight; Eosinophils % (manual) 2 (0-7); Lymphocytes % (manual) 26 (10.0-50.0); Monocytes % (manual) 10 (0-12); Platelet Estimate Adequate
[2024-03-19] MEDS: SODIUM CHLORIDE 0.9% 500 ML IV ONE (23:16)
[2024-03-19] MEDS: KETOROLAC TROMETH 30 MG/ML 1ML VIAL IV ONE (23:16)
[2024-03-20] VITALS (14 sets, daily range): BP systolic 120–126; BP diastolic 64–78; PULSE 90–98; RESP 18–19; TEMP 98–98.4; O2SAT 95–100
[2024-03-20] MEDS ORDERED: ONDANSETRON HCL 4 MG/2 ML VIAL IV PRN (01:45)
[2024-03-20] MEDS: FUROSEMIDE 20 MG/2 ML VIAL IV SCH ×2 (02:21→18:40)
[2024-03-20 03:50] LABS: Urine Bacteria None Seen /hpf (None Seen)
[2024-03-20 04:05] LABS: Urine Blood TRACE /uL (Negative); Urine Clarity Clear (Clear); Urine Color Light-Yellow (Yellow); Urine Protein, UAD TRACE (Negative); Urine Specific Gravity 1.012 (1.001-1.035); Urine Urobilinogen Normal (Negative); Urine WBC 2 /hpf (0 - 5)
[2024-03-20 04:19] LABS: COVID19 ANTIGEN SOFIA FIA NEGATIVE (NEGATIVE); Rapid Influenza A Negative (Negative); Rapid Influenza B Negative (Negative)
[2024-03-20] MEDS: IPRATROPIUM BROM 0.5 MG/2.5ML INH SOL NEB PRN (06:33)
[2024-03-20] MEDS: ALBUTEROL SULF 2.5 MG/0.5ML(0.5%) NEB SOLN NEB SCH (06:33)
[2024-03-20] MEDS: LEVOTHYROXINE SODIUM 100 MCG TAB PO SCH (07:12)
[2024-03-20] MEDS: APIXABAN 5 MG TAB PO SCH (10:28)
[2024-03-20] MEDS: amLODIPine BESYLATE 5 MG TAB PO SCH (10:30)
[2024-03-20 12:11] LABS: Base Excess 11.4 mmol/L (-2.0-3.0)
[2024-03-20] MEDS: ATORVASTATIN 20 MG TAB PO SCH (20:39)
[2024-03-20] MEDS: HYDROcodone-ACET 5/325MG TAB PO PRN (20:39)
[2024-03-21] VITALS (15 sets, daily range): BP systolic 121–135; BP diastolic 60–75; PULSE 85–98; RESP 17–22; TEMP 98.1–98.8; O2SAT 94–100
[2024-03-21] MEDS: PANTOPRAZOLE 40 MG TAB PO SCH (06:46)
[2024-03-21] MEDS: hydrOXYchloroQUINE SULFATE 200 MG TAB PO SCH (10:20)
[2024-03-21] MEDS: ALLOPURINOL 100 MG TAB PO SCH (10:20)
[2024-03-21] MEDS: CITALOPRAM HYDROBR 20 MG TAB PO SCH (10:20)
[2024-03-21] MEDS ORDERED: QUET400T PO (10:32)
[2024-03-21] MEDS ORDERED: APIX5TAB PO (10:33)
[2024-03-21 10:36] LABS: Hematocrit 29.2 % (36.0-46.0); Hemoglobin 9.5 g/dL (12.2-16.2); Mean Corpuscular Hemoglobin 30.4 pg (28.0-32.0); Mean Corpuscular Hgb Conc. 32.6 g/dL (32.0-36.0); Mean Corpuscular Volume 93.3 fL (80.0-100.0); Platelet Count (auto) 206 10^3/uL (140-450); Red Blood Cells 3.13 10^6/uL (4.0-5.20); Red Cell Distribution Width 17.6 % (11.8-14.3); White Blood Cell 4.8 10^3/uL (4.4-10.8)
[2024-03-21 10:38] LABS: Calcium 9.7 mg/dL (8.7-10.4); Chloride 100 mmol/L (98-107); Potassium 3.8 mmol/L (3.5-5.1); Sodium 142 mmol/L (136-145)
[2024-03-21 10:39] LABS: Anion Gap 8 (5-15); Carbon Dioxide 34 mmol/L (20-30)
[2024-03-21 10:40] LABS: Basophils % (manual) 0 (0.0-2.0); Blast Cells 0; Metamyelocytes % 0; Myelocytes % 0; Promyelocytes % 0; Reactive Lymphocytes 0
[2024-03-21 10:44] LABS: Blood Urea Nitrogen 22 mg/dL (9-23); Glucose 136 mg/dL (74-106)
[2024-03-21 11:07] LABS: Band Neutrophils % (manual) 1; Eosinophils % (manual) 1 (0-7); Lymphocytes % (manual) 26 (10.0-50.0); Monocytes % (manual) 6 (0-12); Platelet Estimate Adequate
[2024-03-22] VITALS (16 sets, daily range): BP systolic 119–134; BP diastolic 62–75; PULSE 83–103; RESP 16–20; TEMP 97.8–98.9; O2SAT 92–100
[2024-03-22] MEDS: DOCUSATE SOD 100 MG CAP PO PRN (20:43)
[2024-03-23] VITALS (17 sets, daily range): BP systolic 99–139; BP diastolic 62–74; PULSE 82–120; RESP 17–20; TEMP 97.6–98.7; O2SAT 93–100
[2024-03-23] MEDS: ACETAMINOPHEN 325 MG TAB PO PRN (15:15)
[2024-03-24] VITALS (11 sets, daily range): BP systolic 121–132; BP diastolic 61–73; PULSE 84–104; RESP 16–20; TEMP 98.1–98.4; O2SAT 95–100
[2024-03-24] MEDS ORDERED: FURO1TAB31 PO (10:01)
== END 2024-03-24 12:55 | disposition home or self-care (01) | DRG 291 ==
LOC: ER 12:07 → EDUNIT# 12:07 → EDBD 12:07 → OVERFLOW 03-20 01:40 → CENTRAL 03-20 01:44
PROVIDERS: ADMIT Nurse Practitioner; ATTEND Internal Medicine
DX: I13.0 Hypertensive heart and chronic kidney disease with heart failure and stage 1 through stage 4 chronic kidney disease, or unspecified chronic kidney disease (principal); I50.33 Acute on chronic diastolic (congestive) heart failure; J44.1 Chronic obstructive pulmonary disease with (acute) exacerbation; J96.10 Chronic respiratory failure, unspecified whether with hypoxia or hypercapnia; Z68.41 Body mass index [BMI] 40.0-44.9, adult; G89.4 Chronic pain syndrome; Z20.822 Contact with and (suspected) exposure to COVID-19; E66.01 Morbid (severe) obesity due to excess calories; M10.9 Gout, unspecified; E03.9 Hypothyroidism, unspecified; D64.9 Anemia, unspecified; N18.30 Chronic kidney disease, stage 3 unspecified; F32.A Depression, unspecified; F20.9 Schizophrenia, unspecified; M06.9 Rheumatoid arthritis, unspecified; E78.5 Hyperlipidemia, unspecified; Z87.891 Personal history of nicotine dependence; Z85.3 Personal history of malignant neoplasm of breast; Z86.718 Personal history of other venous thrombosis and embolism; Z83.3 Family history of diabetes mellitus; Z82.49 Family history of ischemic heart disease and other diseases of the circulatory system; Z79.899 Other long term (current) drug therapy; Z86.711 Personal history of pulmonary embolism; Z99.81 Dependence on supplemental oxygen
CPT/HCPCS: 36415; 36600; 71045; 80048; 80053; 81001; 82805; 82962; 83880; 84443; 85007; 85027; 87426; 87804; 94640; 99291; G0378; J1885

== ENCOUNTER 2024-03-27 14:39 | Inpatient (IN) | payer MEDICARE, MEDICAID ==
[~2024-03-27] VITALS: Ht 170.2 cm; Wt 128.4 kg
[~2024-03-27 14:39] MED LIST changes: +APIX5TAB PO; -DIVA-91 PO; +FURO1TAB31 PO; -QUET100T38 PO; +QUET400T PO
[2024-03-27] MEDS: SODIUM CHLORIDE 0.9% 1,000 ML IV ONE (15:45)
[2024-03-27 16:28] LABS: Basophils # (auto) 0 10 ^3/uL (0-0.2); Basophils % (auto) 0.7 % (0.0-2.0); Eosinophils # (auto) 0.1 10 ^3/uL (0-0.8); Eosinophils % (auto) 1.6 % (0.0-7.0); Hematocrit 29.1 % (36.0-46.0); Hemoglobin 9.6 g/dL (12.2-16.2); Lymphocytes # (auto) 1.1 10 ^3/uL (0.4-5.4); Lymphocytes % (auto) 17.8 % (10.0-50.0); Mean Corpuscular Hemoglobin 30.9 pg (28.0-32.0); Mean Corpuscular Volume 93.6 fL (80.0-100.0); Monocytes # (auto) 0.7 10 ^3/uL (0-1.3); Neutrophils # (auto) 4.4 10 ^3/uL (1.6-8.6); Neutrophils % (auto) 68.9 % (37.0-80.0); Platelet Count (auto) 226 10^3/uL (140-450); Red Cell Distribution Width 17.5 % (11.8-14.3); White Blood Cell 6.4 10^3/uL (4.4-10.8)
[2024-03-27 16:37] LABS: Albumin 4.6 g/dL (3.2-4.8); Alkaline Phosphatase 94 U/L (46-116); Anion Gap 12 (5-15); Aspartate Aminotransferase 12 U/L (13-40); BUN/Creatinine Ratio 18.5 (10.0-20.0); Bilirubin, Total 0.3 mg/dL (0.2-1.0); Calcium 9.6 mg/dL (8.7-10.4); Carbon Dioxide 28 mmol/L (20-30); Chloride 95 mmol/L (98-107); Glucose 81 mg/dL (74-106); Magnesium 2.2 mg/dL (1.6-2.6); Potassium 4.1 mmol/L (3.5-5.1); Total Protein 7.9 g/dL (5.7-8.2)
[2024-03-27 16:40] LABS: INR 1.05 (0.9-1.15); Partial Thromboplastin Time < 20.0 SEC (24.5-34.5); Prothrombin Time 11.1 sec (9.3-11.8)
[2024-03-27 16:54] LABS: Alanine Aminotransferase < 9 U/L (7-40); Sodium 135 mmol/L (136-145)
[2024-03-27 17:08] LABS: Blood Urea Nitrogen 102 mg/dL (9-23)
[2024-03-27] MEDS: FUROSEMIDE 40 MG/4 ML VIAL IV ONE (18:48)
[2024-03-27 18:56] VITALS: PULSE 80; RESP 16; O2SAT 97
[2024-03-27 19:01] LABS: Urine Bacteria FEW /hpf (None Seen); Urine Blood Negative /uL (Negative); Urine Clarity Clear (Clear); Urine Color Light-Yellow (Yellow); Urine Protein, UAD TRACE (Negative); Urine Specific Gravity 1.013 (1.001-1.035); Urine Urobilinogen Normal (Negative); Urine WBC 2 /hpf (0 - 5)
[2024-03-27] MEDS: oxyCODONE ER 10 MG TAB PO ONE (21:19)
[2024-03-27] MEDS ORDERED: ACETAMINOPHEN 325 MG TAB PO PRN (21:45)
[2024-03-27] MEDS ORDERED: ALBUTEROL SULF 2.5 MG/0.5ML(0.5%) NEB SOLN NEB PRN (21:45)
[2024-03-27] MEDS ORDERED: hydrALAZINE HCL 20 MG/ML VL IV PRN (21:45)
[2024-03-27] MEDS ORDERED: ONDANSETRON HCL 4 MG/2 ML VIAL IV PRN (21:45)
[2024-03-27] MEDS: ATORVASTATIN 20 MG TAB PO SCH (22:00)
[2024-03-27] MEDS: APIXABAN 5 MG TAB PO SCH (22:00)
[2024-03-27] MEDS: SODIUM CHLOR 0.9% PF (SALINE LOCK) 10ML VIAL/SYR IV SCH (22:00)
[2024-03-27] MEDS ORDERED: NITROGLYCERIN 0.4 MG SL TAB SL PRN (22:45)
[2024-03-27 23:51] VITALS: PULSE 90; RESP 14; O2SAT 99
[2024-03-28] VITALS (14 sets, daily range): BP systolic 109–133; BP diastolic 53–67; PULSE 87–99; RESP 16–19; TEMP 97.5–98.4; O2SAT 94–100
[2024-03-28] MEDS: LEVOTHYROXINE SODIUM 50 MCG TAB PO SCH (06:58)
[2024-03-28 07:37] LABS: Basophils # (auto) 0 10 ^3/uL (0-0.2); Basophils % (auto) 0.6 % (0.0-2.0); Eosinophils # (auto) 0.1 10 ^3/uL (0-0.8); Eosinophils % (auto) 2.4 % (0.0-7.0); Hematocrit 27.3 % (36.0-46.0); Lymphocytes # (auto) 1.3 10 ^3/uL (0.4-5.4); Lymphocytes % (auto) 23.6 % (10.0-50.0); Mean Corpuscular Hemoglobin 30.7 pg (28.0-32.0); Mean Corpuscular Volume 93.1 fL (80.0-100.0); Monocytes # (auto) 0.6 10 ^3/uL (0-1.3); Monocytes % (auto) 11.4 % (0.0-12.0); Neutrophils # (auto) 3.4 10 ^3/uL (1.6-8.6); Nucleated Red Blood Cells % 0.1 %; Platelet Count (auto) 241 10^3/uL (140-450); Red Blood Cells 2.93 10^6/uL (4.0-5.20); Red Cell Distribution Width 17.7 % (11.8-14.3); White Blood Cell 5.5 10^3/uL (4.4-10.8)
[2024-03-28 07:45] LABS: Alanine Aminotransferase 12 U/L (7-40); Albumin 4.3 g/dL (3.2-4.8); Alkaline Phosphatase 83 U/L (46-116); Anion Gap 8 (5-15); Aspartate Aminotransferase 16 U/L (13-40); BUN/Creatinine Ratio 24.8 (10.0-20.0); Bilirubin, Total 0.2 mg/dL (0.2-1.0); Calcium 9.5 mg/dL (8.7-10.4); Carbon Dioxide 31 mmol/L (20-30); Chloride 101 mmol/L (98-107); Glucose 93 mg/dL (74-106); Potassium 4.6 mmol/L (3.5-5.1); Sodium 140 mmol/L (136-145); Total Protein 7.1 g/dL (5.7-8.2)
[2024-03-28 07:54] LABS: Blood Urea Nitrogen 93 mg/dL (9-23)
[2024-03-28] MEDS: FAMOTIDINE (10MG/ML) 2ML VL IV SCH (10:22)
[2024-03-28] MEDS: B-COMPLEX W/ C & FOLIC ACID(NEPHROVITE TAB) PO SCH (10:22)
[2024-03-28 13:40] LABS: COVID19 ANTIGEN SOFIA FIA NEGATIVE (NEGATIVE)
[2024-03-28 13:42] LABS: Rapid Influenza A Negative (Negative); Rapid Influenza B Negative (Negative)
[2024-03-28] MEDS ORDERED: ALBUTEROL SULF 2.5 MG/0.5ML(0.5%) NEB SOLN NEB PRN (16:00)
[2024-03-28] MEDS ORDERED: IPRATROPIUM BROM 0.5 MG/2.5ML INH SOL NEB PRN (16:00)
[2024-03-28] MEDS: ALBUTEROL SULF 2.5 MG/0.5ML(0.5%) NEB SOLN NEB PRN (16:48)
[2024-03-28] MEDS: IPRATROPIUM BROM 0.5 MG/2.5ML INH SOL NEB PRN (16:48)
[2024-03-28] MEDS: VALPROIC ACID 250 MG/5 ML ORAL SOLN PO SCH (22:03)
[2024-03-28] MEDS: QUEtiapine FUMARATE 100 MG TAB PO SCH (22:04)
[2024-03-29] VITALS (14 sets, daily range): BP systolic 121–150; BP diastolic 56–110; PULSE 73–112; RESP 12–20; TEMP 97.5–98.7; O2SAT 93–100
[2024-03-29 10:46] LABS: Basophils # (auto) 0 10 ^3/uL (0-0.2); Basophils % (auto) 0.8 % (0.0-2.0); Eosinophils # (auto) 0.1 10 ^3/uL (0-0.8); Eosinophils % (auto) 3.5 % (0.0-7.0); Hematocrit 27.9 % (36.0-46.0); Hemoglobin 8.9 g/dL (12.2-16.2); Lymphocytes # (auto) 1.2 10 ^3/uL (0.4-5.4); Lymphocytes % (auto) 30.1 % (10.0-50.0); Mean Corpuscular Hemoglobin 30.2 pg (28.0-32.0); Mean Corpuscular Volume 94.4 fL (80.0-100.0); Monocytes # (auto) 0.3 10 ^3/uL (0-1.3); Monocytes % (auto) 7.4 % (0.0-12.0); Neutrophils # (auto) 2.4 10 ^3/uL (1.6-8.6); Neutrophils % (auto) 58.2 % (37.0-80.0); Platelet Count (auto) 223 10^3/uL (140-450); Red Blood Cells 2.95 10^6/uL (4.0-5.20)
[2024-03-29 11:00] LABS: Chloride 102 mmol/L (98-107); Sodium 140 mmol/L (136-145)
[2024-03-29 11:01] LABS: Anion Gap 11 (5-15); Carbon Dioxide 27 mmol/L (20-30)
[2024-03-29 11:06] LABS: BUN/Creatinine Ratio 37.9 (10.0-20.0); Glucose 156 mg/dL (74-106)
[2024-03-29 11:08] LABS: Blood Urea Nitrogen 81 mg/dL (9-23)
[2024-03-29] MEDS: D5W/SOD CHLO 0.9% 1,000 ML IV SCH (19:20)
[2024-03-29] MEDS: ALPRAZolam 0.5 MG TAB PO PRN (22:26)
[2024-03-30] VITALS (11 sets, daily range): BP systolic 117–156; BP diastolic 66–94; PULSE 94–110; RESP 16–21; TEMP 98–98.6; O2SAT 94–100
[2024-03-30] MEDS: SODIUM ZIRCONIUM CYCL 10 GM PAK PO SCH ×2 (09:42→22:06)
[2024-03-30] MEDS ORDERED: DEXTROSE (50%) 50ML SYRG IV PRN (10:15)
[2024-03-30 11:27] LABS: Basophils # (auto) 0 10 ^3/uL (0-0.2); Basophils % (auto) 0.3 % (0.0-2.0); Eosinophils # (auto) 0.2 10 ^3/uL (0-0.8); Eosinophils % (auto) 2.5 % (0.0-7.0); Hematocrit 29.3 % (36.0-46.0); Hemoglobin 9.4 g/dL (12.2-16.2); Lymphocytes # (auto) 1.5 10 ^3/uL (0.4-5.4); Lymphocytes % (auto) 21.8 % (10.0-50.0); Mean Corpuscular Hemoglobin 30.7 pg (28.0-32.0); Mean Corpuscular Hgb Conc. 32.1 g/dL (32.0-36.0); Mean Corpuscular Volume 95.9 fL (80.0-100.0); Monocytes # (auto) 0.7 10 ^3/uL (0-1.3); Monocytes % (auto) 9.5 % (0.0-12.0); Neutrophils # (auto) 4.6 10 ^3/uL (1.6-8.6); Neutrophils % (auto) 65.9 % (37.0-80.0); Nucleated Red Blood Cells % 0.1 %; Platelet Count (auto) 207 10^3/uL (140-450); Red Blood Cells 3.06 10^6/uL (4.0-5.20)
[2024-03-30] MEDS: ACCU-CHEK COMFORT CURVE STRIP VI SCH (11:30)
[2024-03-30 11:40] LABS: Chloride 106 mmol/L (98-107); Sodium 141 mmol/L (136-145)
[2024-03-30 11:41] LABS: Anion Gap 10 (5-15); Carbon Dioxide 25 mmol/L (20-30)
[2024-03-30 11:42] LABS: Calcium 10.2 mg/dL (8.7-10.4)
[2024-03-30 11:47] LABS: BUN/Creatinine Ratio 33.1 (10.0-20.0); Glucose 104 mg/dL (74-106)
[2024-03-30 11:55] LABS: Blood Urea Nitrogen 48 mg/dL (9-23)
[2024-03-30 11:57] LABS: Potassium 5.8 mmol/L (3.5-5.1)
[2024-03-30 12:16] LABS: Base Excess 2.7 mmol/L (-2.0-3.0)
[2024-03-30] MEDS: ALBUTEROL SULF 2.5 MG/0.5ML(0.5%) NEB SOLN NEB ONE (12:35)
[2024-03-30] MEDS: HYDROcodone-ACET 5/325MG TAB PO PRN (20:51)
[2024-03-30] MEDS: DOCUSATE SOD 100 MG CAP PO PRN (22:09)
[2024-03-31] VITALS (13 sets, daily range): BP systolic 113–152; BP diastolic 60–82; PULSE 73–114; RESP 16–22; TEMP 96.8–98.3; O2SAT 93–99
[2024-03-31] MEDS: InsuLIN REG 1unit/0.01ml Soln (100units/ml) SC SCH
[2024-03-31] MEDS: ACCU-CHEK COMFORT CURVE STRIP VI SCH (00:09)
[2024-03-31] MEDS: D5W/SOD CHLO 0.9% 1,000 ML IV SCH (13:00)
[2024-03-31] MEDS: SILDENAFIL CITRATE 20 MG TAB PO SCH (13:56)
[2024-03-31] MEDS: DOXYCYCLINE 100 MG TAB/CAP PO SCH (13:57)
[2024-03-31 14:06] LABS: Protein, Urine 9.2 mg/dL (0.0-11.9)
[2024-03-31 14:09] LABS: Creatinine, Urine 31.52 mg/dL (30.0-125.0)
[2024-03-31 14:12] LABS: Chloride 104 mmol/L (98-107); Sodium 141 mmol/L (136-145)
[2024-03-31 14:13] LABS: Anion Gap 6 (5-15); Carbon Dioxide 31 mmol/L (20-30)
[2024-03-31 14:18] LABS: BUN/Creatinine Ratio 23.6 (10.0-20.0); Glucose 130 mg/dL (74-106)
[2024-03-31 14:33] LABS: Blood Urea Nitrogen 30 mg/dL (9-23)
[2024-04-01] VITALS (9 sets, daily range): BP systolic 119–154; BP diastolic 73–97; PULSE 84–111; RESP 18–20; TEMP 97.9–98.5; O2SAT 94–100
[2024-04-01] MEDS: guaiFENesin-DM 100/10mg/5ml SYR PO PRN (03:28)
[2024-04-01 07:11] LABS: Anion Gap 5 (5-15); Carbon Dioxide 27 mmol/L (20-30); Chloride 104 mmol/L (98-107); Potassium 5.3 mmol/L (3.5-5.1); Sodium 136 mmol/L (136-145)
[2024-04-01 07:13] LABS: Calcium 9.9 mg/dL (8.7-10.4)
[2024-04-01 07:17] LABS: BUN/Creatinine Ratio 19.2 (10.0-20.0); Blood Urea Nitrogen 23 mg/dL (9-23); Glucose 100 mg/dL (74-106)
[2024-04-01 07:19] LABS: Basophils # (auto) 0 10 ^3/uL (0-0.2); Basophils % (auto) 0.5 % (0.0-2.0); Eosinophils # (auto) 0.2 10 ^3/uL (0-0.8); Hematocrit 27.6 % (36.0-46.0); Lymphocytes # (auto) 1.6 10 ^3/uL (0.4-5.4); Mean Corpuscular Hemoglobin 31.2 pg (28.0-32.0); Mean Corpuscular Hgb Conc. 32.7 g/dL (32.0-36.0); Mean Corpuscular Volume 95.4 fL (80.0-100.0); Monocytes # (auto) 0.5 10 ^3/uL (0-1.3); Monocytes % (auto) 8.6 % (0.0-12.0); Neutrophils # (auto) 3.9 10 ^3/uL (1.6-8.6); Neutrophils % (auto) 61.9 % (37.0-80.0); Nucleated Red Blood Cells % 0.1 %; Platelet Count (auto) 225 10^3/uL (140-450); Red Blood Cells 2.89 10^6/uL (4.0-5.20); White Blood Cell 6.3 10^3/uL (4.4-10.8)
[2024-04-01] MEDS: SODIUM ZIRCONIUM CYCL 10 GM PAK PO ONE (14:45)
[2024-04-01 15:56] LABS: % Iron Saturation 17.9 % (15-50)
== END 2024-04-01 21:33 | disposition home health service (06) | DRG 291 ==
LOC: EDBD 14:39 → ER 14:39 → TELE 22:42 → TELE-CENTR 23:43
PROVIDERS: ADMIT Internal Medicine; ATTEND Internal Medicine
DX: I13.2 Hypertensive heart and chronic kidney disease with heart failure and with stage 5 chronic kidney disease, or end stage renal disease (principal); I50.33 Acute on chronic diastolic (congestive) heart failure; J44.1 Chronic obstructive pulmonary disease with (acute) exacerbation; G45.9 Transient cerebral ischemic attack, unspecified; N17.9 Acute kidney failure, unspecified; J96.10 Chronic respiratory failure, unspecified whether with hypoxia or hypercapnia; D68.69 Other thrombophilia; Z68.41 Body mass index [BMI] 40.0-44.9, adult; D64.9 Anemia, unspecified; E11.22 Type 2 diabetes mellitus with diabetic chronic kidney disease; I95.9 Hypotension, unspecified; F31.9 Bipolar disorder, unspecified; N18.31 Chronic kidney disease, stage 3a; E66.01 Morbid (severe) obesity due to excess calories; E86.1 Hypovolemia; E87.5 Hyperkalemia; M10.9 Gout, unspecified; F20.9 Schizophrenia, unspecified; E03.9 Hypothyroidism, unspecified; N13.9 Obstructive and reflux uropathy, unspecified; Z85.3 Personal history of malignant neoplasm of breast; Z91.199 Patient's noncompliance with other medical treatment and regimen due to unspecified reason; Z86.718 Personal history of other venous thrombosis and embolism; Z83.3 Family history of diabetes mellitus; Z82.49 Family history of ischemic heart disease and other diseases of the circulatory system; Z79.01 Long term (current) use of anticoagulants; Z86.711 Personal history of pulmonary embolism; Z99.81 Dependence on supplemental oxygen; Z79.4 Long term (current) use of insulin
CPT/HCPCS: 36415; 36600; 70450; 71045; 76775; 80048; 80053; 81001; 82306; 82570; 82607; 82805; 82962; 83036; 83540; 83550; 83735; 83880; 83935; 84132; 84156; 84300; 84443; 84484; 84550; 85025; 85610; 85730; 86850; 86900; 86901; 87081; 87426; 87804; 93005; 93886; 94640; 97163; G0378; J3490; J7042

== ENCOUNTER 2024-04-04 14:13 | Inpatient (IN) | payer MEDICARE, MEDICAID ==
[~2024-04-04] VITALS: Ht 170.2 cm; Wt 122.4 kg
[2024-04-04 15:58] LABS: Basophils # (auto) 0.1 10 ^3/uL (0-0.2); Basophils % (auto) 0.9 % (0.0-2.0); Eosinophils # (auto) 0.1 10 ^3/uL (0-0.8); Eosinophils % (auto) 1.5 % (0.0-7.0); Hematocrit 29.1 % (36.0-46.0); Hemoglobin 9.7 g/dL (12.2-16.2); Lymphocytes % (auto) 13.3 % (10.0-50.0); Mean Corpuscular Hemoglobin 30.3 pg (28.0-32.0); Mean Corpuscular Hgb Conc. 33.2 g/dL (32.0-36.0); Mean Corpuscular Volume 91.3 fL (80.0-100.0); Monocytes # (auto) 0.7 10 ^3/uL (0-1.3); Monocytes % (auto) 8.4 % (0.0-12.0); Neutrophils % (auto) 75.9 % (37.0-80.0); Nucleated Red Blood Cells % 0.3 %; Platelet Count (auto) 232 10^3/uL (140-450); Red Blood Cells 3.19 10^6/uL (4.0-5.20); Red Cell Distribution Width 16.9 % (11.8-14.3); White Blood Cell 7.9 10^3/uL (4.4-10.8)
[2024-04-04 16:53] LABS: Alanine Aminotransferase < 9 U/L (7-40); Albumin 4.4 g/dL (3.2-4.8); Alkaline Phosphatase 95 U/L (46-116); Anion Gap 11 (5-15); Aspartate Aminotransferase 11 U/L (13-40); Bilirubin, Total 0.2 mg/dL (0.2-1.0); Blood Urea Nitrogen 37 mg/dL (9-23); Calcium 9.3 mg/dL (8.7-10.4); Carbon Dioxide 28 mmol/L (20-30); Chloride 103 mmol/L (98-107); Glucose 96 mg/dL (74-106); Magnesium 1.3 mg/dL (1.6-2.6); Potassium 3.6 mmol/L (3.5-5.1); Sodium 142 mmol/L (136-145); Total Protein 7.4 g/dL (5.7-8.2)
[2024-04-04 17:43] VITALS: PULSE 90; RESP 18; O2SAT 99
[2024-04-04 19:30] VITALS: PULSE 92; RESP 18; O2SAT 98
[2024-04-04 21:49] LABS: Urine Bacteria None Seen /hpf (None Seen)
[2024-04-04 22:02] LABS: Urine Blood Negative /uL (Negative); Urine Clarity Clear (Clear); Urine Color Colorless (Yellow); Urine Protein, UAD Negative (Negative); Urine Specific Gravity 1.006 (1.001-1.035); Urine Urobilinogen Normal (Negative); Urine WBC 1 /hpf (0 - 5); Urine pH 6.5 (5.0-9.0)
[2024-04-04] MEDS ORDERED: DOCUSATE SOD 100 MG CAP PO PRN (22:45)
[2024-04-04] MEDS ORDERED: ONDANSETRON HCL 4 MG/2 ML VIAL IV PRN (22:45)
[2024-04-04] MEDS: MAGNESIUM SULFATE 1GM/100ML 100 ML IV SCH (22:55)
[2024-04-04] MEDS: ACETAMINOPHEN 325 MG TAB PO ONE (22:56)
[2024-04-04] MEDS ORDERED: NITROGLYCERIN 0.4 MG SL TAB SL PRN (23:00)
[2024-04-05] VITALS (17 sets, daily range): BP systolic 99–133; BP diastolic 53–97; PULSE 16–109; RESP 14–20; TEMP 97.3–98.8; O2SAT 88–100
[2024-04-05] MEDS: IPRATROPIUM BROM 0.5 MG/2.5ML INH SOL NEB PRN (00:25)
[2024-04-05] MEDS: ALBUTEROL SULF 2.5 MG/0.5ML(0.5%) NEB SOLN NEB PRN (00:25)
[2024-04-05] MEDS: LEVOTHYROXINE SODIUM 50 MCG TAB PO SCH (05:43)
[2024-04-05] MEDS: SODIUM CHLOR 0.9% PF (SALINE LOCK) 10ML VIAL/SYR IV SCH (05:43)
[2024-04-05 06:08] LABS: Basophils # (auto) 0 10 ^3/uL (0-0.2); Basophils % (auto) 0.8 % (0.0-2.0); Eosinophils # (auto) 0.2 10 ^3/uL (0-0.8); Hemoglobin 8.7 g/dL (12.2-16.2); Lymphocytes # (auto) 1.3 10 ^3/uL (0.4-5.4); Lymphocytes % (auto) 20.8 % (10.0-50.0); Mean Corpuscular Hgb Conc. 33.5 g/dL (32.0-36.0); Mean Corpuscular Volume 92.6 fL (80.0-100.0); Monocytes # (auto) 0.5 10 ^3/uL (0-1.3); Monocytes % (auto) 8.1 % (0.0-12.0); Neutrophils # (auto) 4.1 10 ^3/uL (1.6-8.6); Neutrophils % (auto) 67.3 % (37.0-80.0); Nucleated Red Blood Cells % 0.2 %; Platelet Count (auto) 244 10^3/uL (140-450); Red Cell Distribution Width 16.9 % (11.8-14.3); White Blood Cell 6.1 10^3/uL (4.4-10.8)
[2024-04-05 06:16] LABS: Albumin 4.1 g/dL (3.2-4.8); Alkaline Phosphatase 89 U/L (46-116); Anion Gap 5 (5-15); Aspartate Aminotransferase 11 U/L (13-40); BUN/Creatinine Ratio 20.7 (10.0-20.0); Blood Urea Nitrogen 35 mg/dL (9-23); Calcium 9.1 mg/dL (8.7-10.4); Carbon Dioxide 32 mmol/L (20-30); Chloride 103 mmol/L (98-107); Glucose 92 mg/dL (74-106); Potassium 3.6 mmol/L (3.5-5.1); Sodium 140 mmol/L (136-145)
[2024-04-05 06:17] LABS: Bilirubin, Total 0.2 mg/dL (0.2-1.0); Total Protein 6.9 g/dL (5.7-8.2)
[2024-04-05 06:41] LABS: Alanine Aminotransferase 9 U/L (7-40)
[2024-04-05] MEDS: FAMOTIDINE (10MG/ML) 2ML VL IV SCH (11:32)
[2024-04-05] MEDS: ASPirin 81 mg TAB PO SCH (11:33)
[2024-04-05 12:01] LABS: Uric Acid 8.8 mg/dL (3.1-7.8)
[2024-04-05 12:04] LABS: Phosphorus 6.5 mg/dL (2.4-5.1)
[2024-04-05] MEDS: HYDROcodone-ACET 5/325MG TAB PO PRN (14:44)
[2024-04-05 15:50] LABS: Alanine Aminotransferase 12 U/L (7-40); Alkaline Phosphatase 94 U/L (46-116); Anion Gap 8 (5-15); Aspartate Aminotransferase 17 U/L (13-40); BUN/Creatinine Ratio 27.9 (10.0-20.0); Blood Urea Nitrogen 39 mg/dL (9-23); Carbon Dioxide 29 mmol/L (20-30); Chloride 103 mmol/L (98-107); Glucose 109 mg/dL (74-106); Magnesium 1.6 mg/dL (1.6-2.6); Potassium 4.3 mmol/L (3.5-5.1); Sodium 140 mmol/L (136-145)
[2024-04-05 15:51] LABS: Bilirubin, Total < 0.2 mg/dL (0.2-1.0); Total Protein 6.5 g/dL (5.7-8.2)
[2024-04-05 17:33] LABS: Urine Bacteria FEW /hpf (None Seen); Urine Blood Negative /uL (Negative); Urine Clarity Turbid (Clear); Urine Color Light-Yellow (Yellow); Urine Hyaline Cast MOD /lpf (0 - 2); Urine Protein, UAD TRACE (Negative); Urine Specific Gravity 1.014 (1.001-1.035); Urine Urobilinogen Normal (Negative); Urine WBC 137 /hpf (0 - 5); Urine pH 5.5 (5.0-9.0)
[2024-04-05 17:40] LABS: Protein, Urine 31.7 mg/dL (0.0-11.9)
[2024-04-05 17:42] LABS: Creatinine, Urine 125.26 mg/dL (30.0-125.0)
[2024-04-05 17:43] LABS: Creatinine, Urine 126.28 mg/dL (30.0-125.0); Urine Protein/Creatinine Ratio 0.25
[2024-04-05] MEDS: ATORVASTATIN 20 MG TAB PO SCH (22:54)
[2024-04-05] MEDS: MAGNESIUM SULFATE 1GM/100ML 100 ML IV SCH (22:55)
[2024-04-06] VITALS (12 sets, daily range): BP systolic 111–136; BP diastolic 51–76; PULSE 78–110; RESP 17–20; TEMP 98.1–99.8; O2SAT 95–100
[2024-04-06 07:34] LABS: Basophils # (auto) 0 10 ^3/uL (0-0.2); Basophils % (auto) 0.4 % (0.0-2.0); Eosinophils # (auto) 0.2 10 ^3/uL (0-0.8); Eosinophils % (auto) 3.7 % (0.0-7.0); Hematocrit 26.5 % (36.0-46.0); Hemoglobin 8.7 g/dL (12.2-16.2); Lymphocytes # (auto) 1.6 10 ^3/uL (0.4-5.4); Lymphocytes % (auto) 28.9 % (10.0-50.0); Mean Corpuscular Hemoglobin 30.9 pg (28.0-32.0); Mean Corpuscular Hgb Conc. 32.9 g/dL (32.0-36.0); Mean Corpuscular Volume 94.1 fL (80.0-100.0); Monocytes # (auto) 0.5 10 ^3/uL (0-1.3); Monocytes % (auto) 9.4 % (0.0-12.0); Neutrophils # (auto) 3.2 10 ^3/uL (1.6-8.6); Neutrophils % (auto) 57.6 % (37.0-80.0); Nucleated Red Blood Cells % 0.3 %; Platelet Count (auto) 253 10^3/uL (140-450); Red Blood Cells 2.82 10^6/uL (4.0-5.20); Red Cell Distribution Width 16.7 % (11.8-14.3); White Blood Cell 5.6 10^3/uL (4.4-10.8)
[2024-04-06 07:48] LABS: Albumin 4.1 g/dL (3.2-4.8); Alkaline Phosphatase 93 U/L (46-116); Anion Gap 7 (5-15); Aspartate Aminotransferase 11 U/L (13-40); BUN/Creatinine Ratio 25.8 (10.0-20.0); Blood Urea Nitrogen 34 mg/dL (9-23); Calcium 9.4 mg/dL (8.7-10.4); Carbon Dioxide 32 mmol/L (20-30); Chloride 103 mmol/L (98-107); Glucose 105 mg/dL (74-106); Magnesium 2.4 mg/dL (1.6-2.6); Potassium 4.2 mmol/L (3.5-5.1); Sodium 142 mmol/L (136-145)
[2024-04-06 07:49] LABS: Bilirubin, Total 0.2 mg/dL (0.2-1.0); Total Protein 6.9 g/dL (5.7-8.2)
[2024-04-06 07:55] LABS: Alanine Aminotransferase < 9 U/L (7-40)
[2024-04-06] MEDS: SEVELAMER 800 MG TAB PO SCH (14:38)
[2024-04-06] MEDS: guaiFENesin-DM 100/10mg/5ml SYR PO PRN (14:39)
[2024-04-06 15:00] LABS: COVID19 ANTIGEN SOFIA FIA NEGATIVE (NEGATIVE); Rapid Influenza A Negative (Negative); Rapid Influenza B Negative (Negative)
[2024-04-06] MEDS ORDERED: LORazepam 2MG/ML-1ML VIAL IV PRN (21:15)
[2024-04-07] VITALS (15 sets, daily range): BP systolic 128–147; BP diastolic 66–78; PULSE 67–112; RESP 12–20; TEMP 98.3–99.5; O2SAT 92–100
[2024-04-07 07:47] LABS: Albumin 4.1 g/dL (3.2-4.8); Alkaline Phosphatase 91 U/L (46-116); Anion Gap 6 (5-15); Aspartate Aminotransferase 10 U/L (13-40); BUN/Creatinine Ratio 25.5 (10.0-20.0); Blood Urea Nitrogen 26 mg/dL (9-23); Calcium 9.9 mg/dL (8.7-10.4); Carbon Dioxide 32 mmol/L (20-30); Chloride 105 mmol/L (98-107); Glucose 86 mg/dL (74-106); Magnesium 1.9 mg/dL (1.6-2.6); Potassium 4.2 mmol/L (3.5-5.1); Sodium 143 mmol/L (136-145)
[2024-04-07 07:48] LABS: Alanine Aminotransferase < 9 U/L (7-40); Bilirubin, Total 0.2 mg/dL (0.2-1.0)
[2024-04-07] MEDS: SEVELAMER 800 MG TAB PO SCH (08:30)
[2024-04-07 10:15] LABS: Basophils # (auto) 0 10 ^3/uL (0-0.2); Basophils % (auto) 0.4 % (0.0-2.0); Eosinophils # (auto) 0.2 10 ^3/uL (0-0.8); Eosinophils % (auto) 3.1 % (0.0-7.0); Hematocrit 26.7 % (36.0-46.0); Hemoglobin 8.9 g/dL (12.2-16.2); Lymphocytes # (auto) 1.7 10 ^3/uL (0.4-5.4); Lymphocytes % (auto) 25.1 % (10.0-50.0); Mean Corpuscular Hemoglobin 31.1 pg (28.0-32.0); Mean Corpuscular Hgb Conc. 33.4 g/dL (32.0-36.0); Mean Corpuscular Volume 93.2 fL (80.0-100.0); Monocytes # (auto) 0.4 10 ^3/uL (0-1.3); Monocytes % (auto) 6.5 % (0.0-12.0); Neutrophils # (auto) 4.5 10 ^3/uL (1.6-8.6); Neutrophils % (auto) 64.9 % (37.0-80.0); Nucleated Red Blood Cells % 0.3 %; Platelet Count (auto) 270 10^3/uL (140-450); Red Blood Cells 2.86 10^6/uL (4.0-5.20); Red Cell Distribution Width 16.8 % (11.8-14.3)
[2024-04-07] MEDS: EPOETIN ALFA-EPBX 10,000 UNIT/1ML VIAL SC ONE (14:51)
[2024-04-07 17:01] LABS: % Iron Saturation 14.6 % (15-50)
[2024-04-07] MEDS: APIXABAN 5 MG TAB PO SCH (21:19)
[2024-04-07] MEDS: ACETAMINOPHEN 325 MG TAB PO PRN (21:27)
[2024-04-08] VITALS (9 sets, daily range): BP systolic 132–151; BP diastolic 54–76; PULSE 85–112; RESP 15–18; TEMP 97.7–99; O2SAT 95–98
[2024-04-08] MEDS: PANTOPRAZOLE 40 MG TAB PO SCH (05:44)
[2024-04-08] MEDS: CITALOPRAM HYDROBR 20 MG TAB PO SCH (09:52)
[2024-04-08] MEDS: ALLOPURINOL 100 MG TAB PO SCH (09:53)
[2024-04-08] MEDS: hydrOXYchloroQUINE SULFATE 200 MG TAB PO SCH (09:53)
[2024-04-08] MEDS: IRON SUCROSE COMPLEX 100 ML IV SCH (12:13)
[2024-04-08 12:34] LABS: Chloride 105 mmol/L (98-107); Potassium 4.4 mmol/L (3.5-5.1); Sodium 142 mmol/L (136-145)
[2024-04-08 12:35] LABS: Anion Gap 6 (5-15); Carbon Dioxide 31 mmol/L (20-30)
[2024-04-08 12:40] LABS: Glucose 86 mg/dL (74-106)
[2024-04-08 12:41] LABS: BUN/Creatinine Ratio 19.4 (10.0-20.0); Blood Urea Nitrogen 19 mg/dL (9-23); Magnesium 1.6 mg/dL (1.6-2.6)
[2024-04-08 12:43] LABS: Phosphorus 2.7 mg/dL (2.4-5.1)
== END 2024-04-08 16:09 | disposition home or self-care (01) | DRG 314 ==
LOC: EDUNIT# 14:13 → EDBD 14:13 → ER 14:13 → TELE 23:00 → TELE-EAST 04-05 09:25
PROVIDERS: ADMIT Nurse Practitioner Family; ATTEND Internal Medicine
DX: I95.9 Hypotension, unspecified (principal); N17.0 Acute kidney failure with tubular necrosis; I50.32 Chronic diastolic (congestive) heart failure; J96.10 Chronic respiratory failure, unspecified whether with hypoxia or hypercapnia; I13.0 Hypertensive heart and chronic kidney disease with heart failure and stage 1 through stage 4 chronic kidney disease, or unspecified chronic kidney disease; Z68.41 Body mass index [BMI] 40.0-44.9, adult; I49.9 Cardiac arrhythmia, unspecified; D63.1 Anemia in chronic kidney disease; E66.01 Morbid (severe) obesity due to excess calories; E83.42 Hypomagnesemia; F20.9 Schizophrenia, unspecified; J44.9 Chronic obstructive pulmonary disease, unspecified; M06.9 Rheumatoid arthritis, unspecified; E03.9 Hypothyroidism, unspecified; R26.9 Unspecified abnormalities of gait and mobility; E78.5 Hyperlipidemia, unspecified; E83.39 Other disorders of phosphorus metabolism; M10.9 Gout, unspecified; Z20.822 Contact with and (suspected) exposure to COVID-19; F32.A Depression, unspecified; Z74.01 Bed confinement status; Z83.3 Family history of diabetes mellitus; Z82.49 Family history of ischemic heart disease and other diseases of the circulatory system; Z88.5 Allergy status to narcotic agent; Z79.899 Other long term (current) drug therapy; Z79.01 Long term (current) use of anticoagulants; Z79.82 Long term (current) use of aspirin; Z85.3 Personal history of malignant neoplasm of breast; Z86.718 Personal history of other venous thrombosis and embolism; Z91.148 Patient's other noncompliance with medication regimen for other reason; Z86.711 Personal history of pulmonary embolism; N18.9 Chronic kidney disease, unspecified
CPT/HCPCS: 36415; 70450; 71045; 76775; 80048; 80053; 81001; 82306; 82570; 82607; 83540; 83550; 83735; 83880; 83970; 84100; 84156; 84300; 84443; 84484; 84550; 85025; 85045; 87081; 87426; 87804; 93005; 94640; 97110; 97116; 97163; 97530; 99291; G0378; J1756; J3490